=== PATIENT | female | born 1955 | race Caucasian/White ===

== ENCOUNTER → 2018-02-28 15:13 | Outpatient (CLI) | payer MEDICAID, SELFPAY ==
[2018-02-28 15:29] LABS: Basophils # 0.1 K/mm3 (0-0.2); Basophils % 0.6 % (0.1-2.0); Eosinophils % 0.4 % (0.1-12.0); Hematocrit 45.7 % (37.0-47.0); Hemoglobin 14.8 g/dL (12.2-16.2); Lymphocytes # 1.2 K/mm3 (0.7-4.5); Lymphocytes % 11.6 K/mm3 (10-50); Mean Corpuscular HGB Conc 32.4 g/dL (31.8-35.4); Mean Corpuscular Hemoglobin 32.8 pg (27.0-31.2); Mean Corpuscular Volume 101.1 fl (81-99); Monocytes # 0.5 K/mm3 (0.1-1.0); Neutrophils # 8.4 K/mm3 (1.8-7.8); Neutrophils % 82.3 % (37.0-80.0); Platelet Count 546 K/mm3 (142-424); Red Blood Count 4.52 M/mm3 (4.20-5.40); Red Cell Distribution Width 15.6 % (11.5-17.5); White Blood Count 10.2 K/mm3 (4.8-10.8)
[2018-02-28 18:02] LABS: Albumin Level 2.3 gm/dL (3.4-5.0); Albumin/Globulin Ratio 0.4 (1.1-1.8); Aspartate Amino Transferase 26 U/L (15-37); Blood Urea Nitrogen 62 mg/dL (7-18); Calcium 8.8 mg/dL (8.5-10.1); Globulin 5.8 gm/dl (1.3-3.2); Sodium 124 mmol/L (136-145); Total Protein,Serum 8.1 gm/dL (6.4-8.2)
[2018-02-28 18:25] LABS: Alanine Aminotransferase 32 U/L (12-78); Alkaline Phosphatase 231 U/L (46-116); Bilirubin,Total 0.3 mg/dL (0.2-1.0); Carbon Dioxide 19 mmol/L (21.0-32.0); Chloride 90 mmol/L (98-107); Creatinine,Serum 1.04 mg/dL (0.55-1.02); Estimated Glomerular Filt Rate 53 ml/min (>60); GFR (African American) 65 ML/MIN (>60); Glucose 232 mg/dL (74-106)
== END ==
PROVIDERS: Visit Provider Emergency Medicine
DX: R19.7 Diarrhea, unspecified (principal)
CPT/HCPCS: 80053; 85025

== ENCOUNTER → 2018-03-01 08:06 | Outpatient (CLI) | payer MEDICAID, SELFPAY ==
[2018-03-01 08:11] LABS: Adenovirus F 40/41, stool Not Detected (NotDetected); Astrovirus Not Detected (NotDetected); Campylobacter Not Detected (NotDetected); Clostridium Difficile A/B, PCR Not Detected (NotDetected); Cryptosporidium Not Detected (NotDetected); Cyclospora Cayetanesis Not Detected (NotDetected); Entamoeba histolytica Not Detected (NotDetected); Enteroaggregative E coli Not Detected (NotDetected); Enteropathogenic E coli Not Detected (NotDetected); Enterotoxigenic E coli Not Detected (NotDetected); Giardia lamblia Not Detected (NotDetected); Norovirus Not Detected (NotDetected); Plesimonas Shigalloides, PCR Not Detected (NotDetected); Rotavirus A Not Detected (NotDetected); Salmonella, PCR Not Detected (NotDetected); Sapovirus Not Detected (NotDetected); Shiga-like toxin E coli Not Detected (NotDetected); Shigella Enterovasive E coli Not Detected (NotDetected); Vibrio Cholerae Not Detected (NotDetected); Vibrio, PCR Not Detected (NotDetected); Yersinia Entercolitica, PCR Not Detected (NotDetected)
== END ==
PROVIDERS: Visit Provider Emergency Medicine
DX: R19.7 Diarrhea, unspecified (principal)
CPT/HCPCS: 87507

== ENCOUNTER 2018-03-05 16:18 | Inpatient (IN) ==
--- NOTE | 2018-03-05 16:43 | Emergency Department Note ---
ED Disposition <Ambrose Lizarraga - Last Filed: 03/05/18 18:11> Condition on Discharge: Serious - Critical Care Critical Care Time: No <Ousmane Angulo - Last Filed: 03/05/18 22:02> Clinical Impression: Diabetic foot infection, Gangrene, Renal insufficiency, Hyponatremia, Tobacco use Diabetes mellitus Qualifiers: Diabetes mellitus type: type 2 Diabetes mellitus terminal worker insulin use: unspecified terminal worker insulin use status Diabetes mellitus complication status: with unspecified complications Qualified Code(s): E11.8 - Type 2 diabetes mellitus with unspecified complications Disposition: Admitted As Inpatient Referrals: Ousmane Angulo MD [Primary Care Provider] - Attestation: On 03/05/18, the high probability of a clinically significant, sudden or life threatening deterioration of the following system(s) required my full and direct attention, intervention and personal management. The time I documented below is in addition to time spent performing reported procedures but includes the following listed in this critical care notation. Medical Decision Making - Medical Records Medical records reviewed: Yes: I reviewed the patient's medical records. - Theo Inquiry Pt receiving controlled substance: No Theo was queried for this patient: No - Lab Data Result diagrams: 03/05/18 17:06 03/05/18 17:06 - Physician Consults Physician Consulted: [facility] hospitalist Time: 18:06 Reason -: Admission, Pt condition, Transfer to another facilty Comment/Response: Will accept but on diversion right now. Place on list. <Ambrose Lizarraga - Last Filed: 03/05/18 18:11> - Lab Data Lab results reviewed: Yes: I reviewed the patient's lab results. Result diagrams: 03/05/18 17:06 03/05/18 17:06 - CT Data CT Scan: Other Time Received: 21:[address] Reviewed: Yes: I have viewed the radiologist's interpretation Preliminary Findings: Abnormal (see report ) <Ousmane Angulo - Last Filed: 03/05/18 22:02> Vital Signs: 03/05/18 16:19 03/05/18 18:14 03/05/18 19:28 Pulse Rate [Left Radial] 112 H 101 H 100 H Respiratory Rate 16 20 Blood Pressure [Right Arm] 113/73 119/72 106/75 L Blood Pressure Mean [Right Arm] 86 87 85 Blood Pressure Source [Right Arm] Automatic Cuff Automatic Cuff Blood Pressure Position [Right Arm] Sitting Sitting 02 Sat by Pulse Oximetry 98 99 97 Oxygen Delivery Method Room Air Room Air Room Air 03/05/18 20:00 03/05/18 20:25 Pulse Rate [Left Radial] 104 H 104 H Respiratory Rate 20 20 Blood Pressure [Right Arm] 110/57 L 108/66 L Blood Pressure Mean [Right Arm] 74 80 Blood Pressure Source [Right Arm] Blood Pressure Position [Right Arm] 02 Sat by Pulse Oximetry 97 99 Oxygen Delivery Method Room Air Room Air - Lab Data Lab Results 03/05/18 17:06: WBC 15.5 H, RBC 4.26, Hgb 13.4, Hct 42.8, MCV 100.6 H, MCH 31.6 H, MCHC 31.4 L, RDW 16.0, Plt Count 665 H, MPV 6.7 L, Neut % (Auto) 84.8 H, Lymph % (Auto) 10.2, [place] % (Auto) 3.3, Eos % (Auto) 1.4, Baso % (Auto) 0.3, Neut # (Auto) 13.1 H, Lymph # (Auto) 1.6, [place] # (Auto) 0.5, Eos # (Auto) 0.2, Baso # (Auto) 0.0, Total Counted 100, Neutrophils % (Manual) 85 H, Band Neutrophils % 3.0, Lymphocytes % (Manual) 10, Monocytes % (Manual) 1 L, Basophils % (Manual) 1.0, Platelet Estimate Moderate increase, RBC Morphology Normal 03/05/18 17:06: Sodium 122 L, Potassium 3.7, Chloride 91 L, Carbon Dioxide 17 L, Anion Gap 17.7 H, BUN 76 H, Creatinine 1.38 H, Estimated Creat Clear 47, Estimated GFR 38 L, Est GFR ( Amer) 47 L, Glucose 160 H, Calcium 8.0 L, Total Bilirubin 0.2, AST 23, ALT 35, Alkaline Phosphatase 219 H, Total Protein 7.7, Albumin 1.9 L, Globulin 5.8 H, Albumin/Globulin Ratio 0.3 L 03/05/18 17:06: Lactate 2.1 H 03/05/18 17:06: ESR > 120 H 03/05/18 17:06: C-Reactive Protein 16.4 H Orders (Tests/Meds): ED MEDICATIONS Generic Name Dose Route Start Last Admin Trade Name Freq PRN Reason Stop Dose Admin Sodium Chloride 1,000 mls @ 500 mls/hr 03/05/18 20:45 03/05/18 21:56 Sod Chlor 0.9% 1000ml Bag IV 04/04/18 20:44 500 mls/hr .Q2H DACIA Administration Ertapenem 1 gm/ Sodium 50 mls @ 100 mls/hr 03/05/18 21:45 03/05/18 21:56 Chloride IV 03/19/18 21:44 100 mls/hr Q24H DACIA Administration Protocol Discontinued Medications Generic Name Dose Route Start Last Admin Trade Name Jayq PRN Reason Stop Dose Admin Hydromorphone HCl 0.5 mg 03/05/18 17:35 03/05/18 17:41 Dilaudid 2mg/Ml Syringe IV 03/05/18 17:36 0.5 mg ONCE ONE Administration Hydromorphone HCl 0.5 mg 03/05/18 18:37 03/05/18 18:37 Dilaudid 2mg/Ml Syringe IV 03/05/18 18:38 0.5 mg ONCE ONE Administration Hydromorphone HCl 0.5 mg 03/05/18 21:45 03/05/18 21:56 Dilaudid 2mg/Ml Syringe IV 03/05/18 21:46 0.5 mg ONCE ONE Administration Vancomycin HCl 1,000 mg/ 250 mls @ 125 mls/hr 03/05/18 18:02 03/05/18 18:16 Sodium Chloride IV 03/05/18 20:01 Not Given ONCE ONE Vancomycin HCl 1,500 mg/ 250 mls @ 125 mls/hr 03/05/18 18:15 03/05/18 18:25 Sodium Chloride IV 03/05/18 20:14 125 mls/hr ONCE ONE Administration Ketorolac Tromethamine 30 mg 03/05/18 16:40 03/05/18 17:07 Toradol 30mg/Ml Vial IM 03/05/18 16:41 30 mg ONCE ONE Administration ORDERS Category Date Time Status CT foot RT wo con Stat Cat Scan 03/05/18 20:24 Taken Blood Culture Stat Micro 03/05/18 17:06 Received Wound Culture and Gram Stain Stat Micro 03/05/18 17:25 Received General Adult HPI - General Mode of Arrival: EMS Source of Information: Patient Limitations: Physical Limitations Description of Symptoms (Recalled from ER Triage Doc. by RN): to ed per squad sent for eval due to abnormal labs elevated K+ of 6.9 yesterday given kayexalate K+ redrawn today but was hemolyzed. pt c/o abd pain and leg pain hx of diarrhea 2 days ago - History of Present Illness Onset (ago): day(s) (1) Location: lower extremity Radiation: non-radiation Severity: moderate Quality: sharp Consistency: constant Relieving factors: none Exacerbating factors: none Associated symptoms: other (diarrhea) <Ambrose Lizarraga - Last Filed: 03/05/18 18:11> <Ousmane Angulo - Last Filed: 03/05/18 22:02> - General Chief complaint: PAIN Stated complaint: pain Time Seen by Provider: 03/05/18 17:00 - Related Data Home Medications Medication Instructions Recorded Confirmed acetaminophen 500 mg tablet 500 mg PO Q6H PRN tab 06/22/17 03/05/18 atorvastatin 20 mg tablet 20 mg PO DAILY tab 06/22/17 03/05/18 divalproex 125 mg tablet,delayed 125 mg PO QHS tab 06/22/17 03/05/18 release furosemide 20 mg tablet 20 mg PO DAILY tab 06/22/17 03/05/18 gabapentin 600 mg tablet 600 mg PO QID tab 06/22/17 03/05/18 hydrocodone 7.5 mg-acetaminophen 1 tab PO TID tab 06/22/17 03/05/18 325 mg tablet metformin 1,000 mg tablet 1,000 mg PO BID 06/22/17 03/05/18 multivitamin with minerals tablet 1 tab-cap PO DAILY tab 06/22/17 03/05/18 omeprazole 40 mg capsule,delayed 40 mg PO DAILY cap 06/22/17 03/05/18 release tizanidine 4 mg capsule 4 mg PO Q8H 06/22/17 03/05/18 Clindamycin HCl 300 mg PO QID 10/30/17 03/05/18 levoFLOXacin [Levaquin 500mg 500 mg PO DAILY 10/30/17 03/05/18 tab] Allergies Allergy/AdvReac Type Severity Reaction Status Date / Time codeine Allergy Mild Verified 10/16/17 18:30 [From TYLENOL-CODEINE #3] morphine [MORPHINE] Allergy Mild Verified 10/16/17 18:30 tramadol [From ULTRAM] Allergy Mild Verified 10/16/17 18:30 amoxicillin [AMOXICILLIN] Allergy Unknown Verified 10/16/17 18:30 [facility] History I have reviewed the patient's past medical history: Yes Medical History: Reports:: Diabetes Mellitus Type 2 Denies:: Diabetes Mellitus Type 1 - Social History Smoking Status: Current every day smoker Tobacco Type: cigarettes Alcohol Intake: never - Psychiatric History Expresses thoughts of harming self/others: None Suicide Plan Description: No Plan <Ambrose Lizarraga - Last Filed: 03/05/18 18:11> ROS Obtained: Yes All systems reviewed & no additional complaints - Constitutional Constitutional: Reports system reviewed and no additional complaints, except as docu - Cardiovascular Cardiovascular: Reports system reviewed and no additional complaints, except as docu - Respiratory Respiratory: Yes system reviewed and no additional complaints, except as docu - Gastrointestinal Gastrointestingal: Reports: abdominal pain, diarrhea - Genitourinary Female Genitourinary: Denies dysuria, Denies urinary hesitancy, Denies urinary urgency - Integumentary/Breasts Skin/Breast: Reports wounds, Reports other (drainage) - Neurologic Neurologic: Reports system reviewed and no additional complaints, except as docu, Denies dizziness, Denies focal weakness, Denies numbness <Ambrose Lizarraga - Last Filed: 03/05/18 18:11> - Eyes Eyes: Denies change in vision - ENT Ears, Nose, Mouth, and Throat: Denies sore throat - Musculoskeletal Musculoskeletal: Reports joint pain - Integumentary/Breasts Skin/Breast: Reports as per HPI <Ousmane Angulo - Last Filed: 03/05/18 22:02> Physical Exam - General General appearance: alert, in no apparent distress - Head Head exam: atraumatic, normocephalic, normal inspection - Neck Neck exam: Present: normal inspection, full ROM, trachea midline. Absent: meningismus, lymphadenopathy - Respiratory Respiratory exam: Present: normal lung sounds bilaterally. Absent: respiratory distress - Cardiovascular Cardiovascular exam: Present: regular rate, normal rhythm. Absent: JVD - Abdominal Exam Abdominal exam: Present: soft, normal bowel sounds. Absent: distention, tenderness, guarding - Extremities Exam Extremities exam: Present: tenderness (diffuse,moderate bilaterally.), pedal edema, other (drainage+) - Neurological Exam Neurological exam: Present: alert, oriented X3 - Psychiatric Psychiatric exam: Present: normal affect, normal mood <Ambrose Lizarraga - Last Filed: 03/05/18 18:11> - Eye Eye exam: Present: PERRL, EOMI - ENT ENT exam: Present: mucous membranes dry - Skin Skin exam: Present: other (changes rt greater than lt with foul smell and changes consistent with cellulitis ) <Ousmane Angulo - Last Filed: 03/05/18 22:02>
[2018-03-05 17:14] LABS: Basophils % 0.3 % (0.1-2.0); Eosinophils # 0.2 K/mm3 (0.0-0.4); Eosinophils % 1.4 % (0.1-12.0); Hematocrit 42.8 % (37.0-47.0); Hemoglobin 13.4 g/dL (12.2-16.2); Lymphocytes # 1.6 K/mm3 (0.7-4.5); Lymphocytes % 10.2 % (10-50); Mean Corpuscular HGB Conc 31.4 g/dL (31.8-35.4); Mean Corpuscular Hemoglobin 31.6 pg (27.0-31.2); Mean Corpuscular Volume 100.6 fl (81-99); Mean Platelet Volume 6.7 fl (7.4-10.4); Monocytes # 0.5 K/mm3 (0.1-1.0); Monocytes % 3.3 % (1.7-9.3); Neutrophils # 13.1 K/mm3 (1.8-7.8); Neutrophils % 84.8 % (37.0-80.0); Platelet Count 665 K/mm3 (142-424); Red Blood Count 4.26 M/mm3 (4.20-5.40); White Blood Count 15.5 K/mm3 (4.8-10.8)
[2018-03-05 17:38] LABS: Albumin Level 1.9 gm/dL (3.4-5.0); Albumin/Globulin Ratio 0.3 (1.1-1.8); Anion Gap 17.7 mEq/L (5-15); Bilirubin,Total 0.2 mg/dL (0.2-1.0); Globulin 5.8 gm/dl (1.3-3.2); Potassium 3.7 mmoL/L (3.5-5.1); Total Protein,Serum 7.7 gm/dL (6.4-8.2)
[2018-03-05 18:35] LABS: Lymphocytes % 10 % (10-50); Monocytes % 1 % (2-9); Neutrophils % 85 % (42-76); Total Cells Counted 100
[2018-03-05 18:37] LABS: RBC Morphology Normal
[2018-03-06 06:34] LABS: Anion Gap 15.5 mEq/L (5-15); Calcium 7.3 mg/dL (8.5-10.1); Potassium 3.5 mmoL/L (3.5-5.1)
[2018-03-06 06:36] LABS: INR 1.09 (0.9-1.1); Prothrombin Time 11.2 seconds (9.4-11.8)
[2018-03-06 06:43] LABS: Hematocrit 37.9 % (37.0-47.0); Mean Corpuscular HGB Conc 31.6 g/dL (31.8-35.4); Mean Corpuscular Hemoglobin 31.5 pg (27.0-31.2); Mean Corpuscular Volume 99.8 fl (81-99); White Blood Count 13.9 K/mm3 (4.8-10.8)
[2018-03-06 06:44] LABS: Basophils % 0.2 % (0.1-2.0); Eosinophils % 1.2 % (0.1-12.0); Lymphocytes # 0.8 K/mm3 (0.7-4.5); Lymphocytes % 6.1 % (10-50); Mean Platelet Volume 6.6 fl (7.4-10.4); Monocytes % 2.9 % (1.7-9.3); Neutrophils # 12.4 K/mm3 (1.8-7.8); Neutrophils % 89.6 % (37.0-80.0); Platelet Count 509 K/mm3 (142-424)
[2018-03-06 06:45] LABS: Eosinophils # 0.2 K/mm3 (0.0-0.4); Monocytes # 0.4 K/mm3 (0.1-1.0)
--- NOTE | 2018-03-06 07:51 | Pharmacy Consult Notes ---
[facility] Pharmacy VTE Monitoring - Patient Demographics Admission date: 03/05/18 Report Date: 03/06/18 Time: 07:50 Allergies/Adverse Reactions: Patient Allergies codeine [From TYLENOL-CODEINE #3] Allergy (Mild, Verified 10/16/17 18:30) morphine [MORPHINE] Allergy (Mild, Verified 10/16/17 18:30) tramadol [From ULTRAM] Allergy (Mild, Verified 10/16/17 18:30) amoxicillin [AMOXICILLIN] Allergy (Unknown, Verified 10/16/17 18:30) Height: 1.6 m Weight: 66.763 kg Patient Problems: Current Active Problems Diabetic foot infection (Acute) Gangrene (Acute) Renal insufficiency (Acute) Diabetes mellitus (Acute) Hyponatremia (Acute) Tobacco use (Acute) - VTE Risk Labs: VTE Related Lab Results Hgb 12.0 g/dL (12.2-16.2) L D 03/06/18 06:22 Hct 37.9 % (37.0-47.0) 03/06/18 06:22 Plt Count 509 K/mm3 (142-424) H 03/06/18 06:22 PT 11.2 seconds (9.4-11.8) 03/06/18 06:22 INR 1.09 (0.9-1.1) 03/06/18 06:22 BUN 59 mg/dL (7-18) H 03/06/18 06:22 Creatinine 0.80 mg/dL (0.55-1.02) D 03/06/18 06:22 Estimated Creat Clear 60 mL/min (0-300) 03/06/18 06:22 Was VTE Risk Assessment Performed: Yes VTE Score: 2 VTE Risk Level: Very Low Risk Clinical Trial Participant: No - Prophylaxis VTE Prophylaxis Ordered?: Yes Types of VTE Prophylaxis: Pharmacological Location of Applied Device: Not Applicable Pharmacologic Type: Enoxaparin
--- NOTE | 2018-03-06 08:23 | Pharmacy Consult Notes ---
- Pharmacy Consult Date: 03/06/18 Time: 08:20 Referring provider: DR. BEACH Reason for Consult:: VANCOMYCIN DOSING FOR DIABETIC FOOT INFECTION/POSSIBLE GANGRENE Allergies and ADEs:: Allergies Allergy/AdvReac Type Severity Reaction Status Date / Time codeine Allergy Mild Verified 10/16/17 18:30 [From TYLENOL-CODEINE #3] morphine [MORPHINE] Allergy Mild Verified 10/16/17 18:30 tramadol [From ULTRAM] Allergy Mild Verified 10/16/17 18:30 amoxicillin [AMOXICILLIN] Allergy Unknown Verified 10/16/17 18:30 Home Medications:: Home Medications Medication Instructions Recorded Confirmed Type acetaminophen 500 mg tablet 500 mg PO Q6HP PRN tab 06/22/17 03/06/18 History atorvastatin 20 mg tablet 20 mg PO HS tab 06/22/17 03/06/18 History divalproex 125 mg tablet,delayed 125 mg PO QHS tab 06/22/17 03/06/18 History release furosemide 20 mg tablet 20 mg PO DAILY tab 06/22/17 03/06/18 History gabapentin 600 mg tablet 600 mg PO QID tab 06/22/17 03/06/18 History hydrocodone 7.5 mg-acetaminophen 1 tab PO TID tab 06/22/17 03/06/18 History 325 mg tablet metformin 1,000 mg tablet 1,000 mg PO BID 06/22/17 03/06/18 History multivitamin with minerals tablet 1 tab-cap PO DAILY tab 06/22/17 03/06/18 History omeprazole 40 mg capsule,delayed 20 mg PO HS cap 06/22/17 03/06/18 History release tizanidine 4 mg capsule 4 mg PO TIDP PRN 06/22/17 03/06/18 History Fluconazole [Diflucan 100mg tablet] 100 mg PO DAILY 03/06/18 03/06/18 History Insulin Detemir [Levemir 100 14 unit SQ HS 03/06/18 03/06/18 History units/mL 10mL vial] Insulin Regular, Human [Humulin R 0 unit SQ BIDP PRN 03/06/18 03/06/18 History Insulin 100 Units/mL 10mL Vial] LORazepam [Ativan 0.5mg tablet] 0.5 tab PO BID 03/06/18 03/06/18 History Loratadine [Claritin 10mg Tablet] 10 mg PO DAILY 03/06/18 03/06/18 History Sertraline HCl [Zoloft 100mg 100 mg PO DAILY 03/06/18 03/06/18 History tablet] Height: 1.6 m Weight: 66.763 kg Laboratory Results:: Laboratory Results - last 24 hr 03/05/18 17:06: WBC 15.5 H, RBC 4.26, Hgb 13.4, Hct 42.8, MCV 100.6 H, MCH 31.6 H, MCHC 31.4 L, RDW 16.0, Plt Count 665 H, MPV 6.7 L, Neut % (Auto) 84.8 H, Lymph % (Auto) 10.2, [place] % (Auto) 3.3, Eos % (Auto) 1.4, Baso % (Auto) 0.3, Neut # (Auto) 13.1 H, Lymph # (Auto) 1.6, [place] # (Auto) 0.5, Eos # (Auto) 0.2, Baso # (Auto) 0.0, Total Counted 100, Neutrophils % (Manual) 85 H, Band Neutrophils % 3.0, Lymphocytes % (Manual) 10, Monocytes % (Manual) 1 L, Basophils % (Manual) 1.0, Platelet Estimate Moderate increase, RBC Morphology Normal 03/05/18 17:06: Sodium 122 L, Potassium 3.7, Chloride 91 L, Carbon Dioxide 17 L, Anion Gap 17.7 H, BUN 76 H, Creatinine 1.38 H, Estimated Creat Clear 47, Estimated GFR 38 L, Est GFR ( Amer) 47 L, Glucose 160 H, Calcium 8.0 L, Total Bilirubin 0.2, AST 23, ALT 35, Alkaline Phosphatase 219 H, Total Protein 7.7, Albumin 1.9 L, Globulin 5.8 H, Albumin/Globulin Ratio 0.3 L 03/05/18 17:06: Lactate 2.1 H 03/05/18 17:06: ESR > 120 H 03/05/18 17:06: C-Reactive Protein 16.4 H 03/06/18 06:10: POC Glucose 81 03/06/18 06:22: WBC 13.9 H, RBC 3.80 L, Hgb 12.0 L D, Hct 37.9, MCV 99.8 H, MCH 31.5 H, MCHC 31.6 L, RDW 16.0, Plt Count 509 H, MPV 6.6 L, Neut % (Auto) 89.6 H, Lymph % (Auto) 6.1 L, [place] % (Auto) 2.9, Eos % (Auto) 1.2, Baso % (Auto) 0.2, Neut # (Auto) 12.4 H, Lymph # (Auto) 0.8, [place] # (Auto) 0.4, Eos # (Auto) 0.2, Baso # (Auto) 0.0 03/06/18 06:22: PT 11.2, INR 1.09 03/06/18 06:22: Sodium 127 L, Potassium 3.5, Chloride 96 L, Carbon Dioxide 19 L, Anion Gap 15.5 H, BUN 59 H, Creatinine 0.80 D, Estimated Creat Clear 60, Estimated GFR 72, Est GFR ( Amer) 87 D, Glucose 84 D, Calcium 7.3 L Medical History: Reports:: Diabetes Mellitus Type 2, Hyperlipidemia, MRSA Denies:: Cancer, Diabetes Mellitus Type 1 Assessment and Plan - Assessment and plan all Dx Assessment and Plan for all problems:: BASED ON PATIENT'S FACTORS, RECOMMEND CONTINUE VANCOMYCIN 1250 MG Q24H STARTING AT 1300. PHARMACY WILL FOLLOW DAILY AND ADJUST APPROPRIATE. [address] [facility], [facility]
[2018-03-06 08:38] LABS: Eosinophils % 2 % (0-3); Lymphocytes % 3 % (10-50); Monocytes % 5 % (2-9); Neutrophils % 88 % (42-76); Total Cells Counted 100
[2018-03-06 08:39] LABS: RBC Morphology Normal
--- NOTE | 2018-03-06 10:36 | History & Physical Report ---
*Admission Date: 03/05/18 *Chief complaint: change in mental status *History of present illness: pt with ongoing decline at [facility] wirh diabetes and has infected feet rt > lt - pt with pain and dec po intake and was seen at [facility] and because of infection and failed op abx with dec po intake and act lev with low bp and abn labs was sent to ed to be eval - she was admitted for ivf and abx [facility] History I have reviewed the patient's past medical history: Yes Medical History: Reports:: Diabetes Mellitus Type 2, Hyperlipidemia, MRSA Denies:: Cancer, Diabetes Mellitus Type 1 Other Medical History: Reports: Arthritis Amputation: No - *Social History Educational Level: Attended High School Smoking Status: Current every day smoker Tobacco Type: cigarettes Alcohol Intake: never Occupational Status: disabled Housing: assisted - Psychiatric History Expresses thoughts of harming self/others: None Suicide Plan Description: No Plan *Family Hx:: Unable to obtain Review of Systems - Review of Systems Review of systems:: pertinent systems reviewed and negative unless documented below - Constitutional Reports malaise, Reports weakness - Eyes Denies change in vision - ENT Denies sore throat - *Cardiovascular Denies chest pain - *Respiratory Denies cough - *Gastrointestinal Denies abdominal pain - *Genitourinary Denies blood in urine - *Musculoskeletal Reports joint pain - Integumentary/Breasts Reports other (infection to rt foot with odor ) - *Neurologic Denies dizziness, Denies localized weakness, Denies numbness - Psychiatric Reports anxiety Meds Home Medications Medication Instructions Recorded Confirmed Type acetaminophen 500 mg tablet 500 mg PO Q6HP PRN tab 06/22/17 03/06/18 History atorvastatin 20 mg tablet 20 mg PO HS tab 06/22/17 03/06/18 History divalproex 125 mg tablet,delayed 125 mg PO HS tab 06/22/17 03/06/18 History release furosemide 20 mg tablet 20 mg PO DAILY tab 06/22/17 03/06/18 History gabapentin 600 mg tablet 600 mg PO QID tab 06/22/17 03/06/18 History hydrocodone 7.5 mg-acetaminophen 1 tab PO TID tab 06/22/17 03/06/18 History 325 mg tablet metformin 1,000 mg tablet 1,000 mg PO BID 06/22/17 03/06/18 History multivitamin with minerals tablet 1 tab-cap PO DAILY tab 06/22/17 03/06/18 History omeprazole 40 mg capsule,delayed 20 mg PO HS cap 06/22/17 03/06/18 History release tizanidine 4 mg capsule 4 mg PO TIDP PRN 06/22/17 03/06/18 History Fluconazole [Diflucan 100mg tablet] 100 mg PO DAILY 03/06/18 03/06/18 History Insulin Detemir [Levemir 100 14 unit SQ HS 03/06/18 03/06/18 History units/mL 10mL vial] Insulin Regular, Human [Humulin R 0 unit SQ BIDP PRN 03/06/18 03/06/18 History Insulin 100 Units/mL 10mL Vial] LORazepam [Ativan 0.5mg tablet] 0.25 mg PO BID 03/06/18 03/06/18 History Loperamide HCl [Imodium 2 mg 2 mg PO QIDP PRN 03/06/18 03/06/18 History capsule] Loratadine [Claritin 10mg Tablet] 10 mg PO DAILY 03/06/18 03/06/18 History Mag Carb/Aluminum Hydrox/Algin 30 ml PO QIDP PRN 03/06/18 03/06/18 History [Gaviscon Liquid] Phenol [Chloraseptic] 1 spray MM BIDP PRN 03/06/18 03/06/18 History Sertraline HCl [Zoloft 100mg 100 mg PO DAILY 03/06/18 03/06/18 History tablet] guaiFENesin [Robafen] 10 ml PO Q4HP PRN 03/06/18 03/06/18 History Allergies Allergy/AdvReac Type Severity Reaction Status Date / Time codeine Allergy Mild Verified 10/16/17 18:30 [From TYLENOL-CODEINE #3] morphine [MORPHINE] Allergy Mild Verified 10/16/17 18:30 tramadol [From ULTRAM] Allergy Mild Verified 10/16/17 18:30 amoxicillin [AMOXICILLIN] Allergy Unknown Verified 10/16/17 18:30 Exam Vital signs and Labs for Last 24 Hours: Temp Pulse Resp BP Pulse Ox 97.0 F L 100 H 17 122/63 97 03/06/18 07:19 03/06/18 07:19 03/06/18 07:19 03/06/18 07:19 03/06/18 07:19 Laboratory Results - last 24 hr 03/05/18 17:06: WBC 15.5 H, RBC 4.26, Hgb 13.4, Hct 42.8, MCV 100.6 H, MCH 31.6 H, MCHC 31.4 L, RDW 16.0, Plt Count 665 H, MPV 6.7 L, Neut % (Auto) 84.8 H, Lymph % (Auto) 10.2, [place] % (Auto) 3.3, Eos % (Auto) 1.4, Baso % (Auto) 0.3, Neut # (Auto) 13.1 H, Lymph # (Auto) 1.6, [place] # (Auto) 0.5, Eos # (Auto) 0.2, Baso # (Auto) 0.0, Total Counted 100, Neutrophils % (Manual) 85 H, Band Ghanshyam trophils % 3.0, Lymphocytes % (Manual) 10, Monocytes % (Manual) 1 L, Basophils % (Manual) 1.0, Platelet Estimate Moderate increase, RBC Morphology Normal 03/05/18 17:06: Sodium 122 L, Potassium 3.7, Chloride 91 L, Carbon Dioxide 17 L, Anion Gap 17.7 H, BUN 76 H, Creatinine 1.38 H, Estimated Creat Clear 47, Estimated GFR 38 L, Est GFR ( Amer) 47 L, Glucose 160 H, Calcium 8.0 L, Total Bilirubin 0.2, AST 23, ALT 35, Alkaline Phosphatase 219 H, Total Protein 7.7, Albumin 1.9 L, Globulin 5.8 H, Albumin/Globulin Ratio 0.3 L 03/05/18 17:06: Lactate 2.1 H 03/05/18 17:06: ESR > 120 H 03/05/18 17:06: C-Reactive Protein 16.4 H 03/06/18 06:10: POC Glucose 81 03/06/18 06:22: WBC 13.9 H, RBC 3.80 L, Hgb 12.0 L D, Hct 37.9, MCV 99.8 H, MCH 31.5 H, MCHC 31.6 L, RDW 16.0, Plt Count 509 H, MPV 6.6 L, Neut % (Auto) 89.6 H, Lymph % (Auto) 6.1 L, [place] % (Auto) 2.9, Eos % (Auto) 1.2, Baso % (Auto) 0.2, Neut # (Auto) 12.4 H, Lymph # (Auto) 0.8, [place] # (Auto) 0.4, Eos # (Auto) 0.2, Baso # (Auto) 0.0, Total Counted 100, Neutrophils % (Manual) 88 H, Band Neutrophils % 1.0, Lymphocytes % (Manual) 3 L, Atypical Lymphs % 1.0, Monocytes % (Manual) 5, Eosinophils % (Manual) 2, Platelet Estimate Slight increase, RBC Morphology Normal 03/06/18 06:22: PT 11.2, INR 1.09 03/06/18 06:22: Sodium 127 L, Potassium 3.5, Chloride 96 L, Carbon Dioxide 19 L, Anion Gap 15.5 H, BUN 59 H, Creatinine 0.80 D, Estimated Creat Clear 60, Estimated GFR 72, Est GFR ( Amer) 87 D, Glucose 84 D, Calcium 7.3 L I & O for Last 24 hours: Intake & Output 03/03/18 03/04/18 03/05/18 03/06/18 11:59 11:59 11:59 11:59 Intake Total 474 / 474 Output Total 300 / 300 Balance 174 / 174 Weight 147 lb 3 oz Microbiology Reports for the Last 24 Hours: Microbiology 03/05/18 17:25 Leg,Right - Right Side Gram Stain - Final 03/05/18 17:25 Leg,Right - Right Side Wound Culture - Preliminary - Constitutional no acute distress, chronically ill appearing, cooperative - *Routine HEENT Exam Head: Present: normocephalic Eye: Present: EOMI, PERRL ENT: Present: mucous membranes dry - *Routine Neck Exam Present: supple - *Routine Respiratory Exam Present: decreased breath sounds - *Routine Cardiovascular Exam Present: RRR, murmur - *Routine Abdominal Exam Present: soft - *Routine Extremities Exam Present: edema Comments: 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 with pain - *Routine Skin Exam Present: erythema, gangrene - *Routine Neurological Exam Present: alert, CN II-XII intact - Routine Psychiatric Exam Present: unable to assess Assessment and Plan (1) Diabetic foot infection Current visit: Yes Status: Acute Category: Medical Code(s): E11.628 - Type 2 diabetes mellitus with other skin complications; L08.9 - Local infection of the skin and subcutaneous tissue, unspecified (2) Gangrene Current visit: Yes Status: Acute Category: Medical Code(s): I96 - Gangrene, not elsewhere classified (3) Renal insufficiency Current visit: Yes Status: Acute Category: Medical Code(s): N28.9 - Disorder of kidney and ureter, unspecified (4) Diabetes mellitus Current visit: Yes Status: Acute Qualifiers: Diabetes mellitus type: type 2 Diabetes mellitus intermediate insulin use: unspecified 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
[2018-03-07 08:08] LABS: Basophils % 0.1 % (0.1-2.0); Eosinophils # 0.1 K/mm3 (0.0-0.4); Eosinophils % 0.4 % (0.1-12.0); Hematocrit 34.7 % (37.0-47.0); Hemoglobin 11.1 g/dL (12.2-16.2); Lymphocytes % 8.6 % (10-50); Mean Corpuscular Hemoglobin 32.1 pg (27.0-31.2); Mean Corpuscular Volume 100.3 fl (81-99); Mean Platelet Volume 7.2 fl (7.4-10.4); Monocytes # 0.5 K/mm3 (0.1-1.0); Monocytes % 4.4 % (1.7-9.3); Neutrophils # 10.6 K/mm3 (1.8-7.8); Neutrophils % 86.5 % (37.0-80.0); Platelet Count 431 K/mm3 (142-424); Red Blood Count 3.46 M/mm3 (4.20-5.40); Red Cell Distribution Width 16.2 % (11.5-17.5); White Blood Count 12.2 K/mm3 (4.8-10.8)
[2018-03-07 08:31] LABS: Anion Gap 13.5 mEq/L (5-15); Calcium 7.2 mg/dL (8.5-10.1); Potassium 3.5 mmoL/L (3.5-5.1)
--- NOTE | 2018-03-07 09:26 | Progress Note ---
Internal Medicine - PN: Subj *Date: 03/07/18 *Time: 09:24 Exam Vital signs and Labs for Last 24 Hours: Temp Pulse Resp BP Pulse Ox 98.8 F 105 H 20 118/73 92 L 03/07/18 08:00 03/07/18 08:00 03/07/18 08:00 03/07/18 08:00 03/07/18 08:00 Laboratory Results - last 24 hr 03/06/18 12:35: POC Glucose 130 H 03/06/18 16:39: POC Glucose 328 H* 03/06/18 20:44: POC Glucose 161 H 03/07/18 05:53: POC Glucose 134 H 03/07/18 07:55: WBC 12.2 H, RBC 3.46 L, Hgb 11.1 L, Hct 34.7 L, MCV 100.3 H, MCH 32.1 H, MCHC 32.0, RDW 16.2, Plt Count 431 H, MPV 7.2 L, Neut % (Auto) 86.5 H, Lymph % (Auto) 8.6 L, [place] % (Auto) 4.4, Eos % (Auto) 0.4, Baso % (Auto) 0.1, Neut # (Auto) 10.6 H, Lymph # (Auto) 1.0, [place] # (Auto) 0.5, Eos # (Auto) 0.1, Baso # (Auto) 0.0 03/07/18 07:55: Sodium 133 L, Potassium 3.5, Chloride 101, Carbon Dioxide 22, Anion Gap 13.5, BUN 24 H D, Creatinine 0.46 L D, Estimated Creat Clear 60, Estimated GFR 137, Est GFR ( Amer) 165 D, Glucose 175 H, Calcium 7.2 L I & O for Last 24 hours: Intake & Output 03/04/18 03/05/18 03/06/18 03/07/18 11:59 11:59 11:59 11:59 Intake Total 474 / 474 1339 / 1339 Output Total 300 / 300 Balance 174 / 174 1339 / 1339 Weight 147 lb 3 oz 147 lb 2.995 oz Microbiology Reports for the Last 24 Hours: Microbiology 03/05/18 17:25 Leg,Right - Right Side Gram Stain - Final 03/05/18 17:25 Leg,Right - Right Side Wound Culture - Preliminary Gram Negative Rods Gram Negative Rods#2 Gram Negative Rods#3 Gram Positive Cocci - *Routine HEENT Exam Head: Present: normocephalic Eye: Present: PERRL ENT: Present: mucous membranes moist - *Routine Neck Exam Present: supple. Absent: lymphadenopathy - *Routine Respiratory Exam Present: CTA bilaterally - *Routine Cardiovascular Exam Present: RRR - *Routine Abdominal Exam Present: soft, normoactive bowel sounds. Absent: tenderness - *Routine Extremities Exam Absent: cyanosis, clubbing, edema Comments: Dressings to bilateral lower extremities - *Routine Skin Exam Present: warm. Absent: rash Comments: Dressing to bilateral lower extremities with strong odor patient is refusing to let me remove the dressings. - *Routine Neurological Exam Present: alert, oriented X3 - Routine Psychiatric Exam Present: normal affect Assessment and Plan (1) Diabetic foot infection Current visit: Yes Status: Acute Category: Medical Code(s): E11.628 - Type 2 diabetes mellitus with other skin complications; L08.9 - Local infection of the skin and subcutaneous tissue, unspecified (2) Gangrene Current visit: Yes Status: Acute Category: Medical Code(s): I96 - Gangrene, not elsewhere classified (3) Renal insufficiency Current visit: Yes Status: Acute Category: Medical Code(s): N28.9 - Disorder of kidney and ureter, unspecified (4) Diabetes mellitus Current visit: Yes Status: Acute Qualifiers: Diabetes mellitus type: type 2 Diabetes mellitus detention insulin use: unspecified 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 Angulo all orders per Kev Consult Orth O Consult podiatry Continue IV antibiotics
[2018-03-07 10:50] LABS: Lymphocytes % 6 % (10-50); Monocytes % 5 % (2-9); Neutrophils % 88 % (42-76); Total Cells Counted 100
[2018-03-07 10:51] LABS: Macrocytosis 1+
--- NOTE | 2018-03-07 12:30 | Consult Report ---
*Admission Date: 03/05/18 *Chief complaint: bilateral foot pain *History of present illness: The patient is a 62-year-old female with a chief complaint of bilateral foot pain. She says that the pain has been present for "a long time," but cannot specify whether this is on the order of weeks or months. She was admitted on 03/05/2018 for suspected infected wounds on her feet, hyponatremia, leukocytosis. She has been on oral antibiotics since October 2017, consisting of clindamycin and Levaquin. She does not report any history of trauma to her feet and is not sure how the infection started. This is all that I am able to obtain from the patient; on questioning, the patient is resistant to answering. She says that she would like to refuse treatment and that she is "ready to ." She is a diabetic smoker and is on daily insulin. She is a [facility] resident and says that she is currently not able to walk at all, and cannot remember the last time she was able to stand. She was admitted through the ED, where ertapenem and vancomycin were started. A CT of the right foot 03/06/2018 was not suspi cious for osteomyelitis. Wound cultures were taken and are growing gram- negative rods and gram-positive cocci. Blood cultures are pending. She has had decreased urine output and decreased p.o. intake but vitals have been stable and she has been afebrile. Review of Systems - Review of Systems Review of systems:: unable to obtain (patient is not cooperative with questioning ) - *Musculoskeletal Reports other (bilateral foot pain) - *Neurologic Reports weakness, Denies dizziness, Denies localized weakness, Denies numbness [facility] History I have reviewed the patient's past medical history: Yes Medical History: Reports:: Diabetes Mellitus Type 2, Hyperlipidemia, MRSA Denies:: Cancer, Diabetes Mellitus Type 1 Other Medical History: Reports: Arthritis Amputation: No - *Social History Educational Level: Attended High School Smoking Status: Current every day smoker Tobacco Type: cigarettes Alcohol Intake: never Occupational Status: disabled Housing: [facility] - Psychiatric History Expresses thoughts of harming self/others: None Suicide Plan Description: No Plan *Family Hx:: Unable to obtain Meds Home Medications Medication Instructions Recorded Confirmed Type acetaminophen 500 mg tablet 500 mg PO Q6HP PRN tab 06/22/17 03/06/18 History atorvastatin 20 mg tablet 20 mg PO HS tab 06/22/17 03/06/18 History divalproex 125 mg tablet,delayed 125 mg PO HS tab 06/22/17 03/06/18 History release furosemide 20 mg tablet 20 mg PO DAILY tab 06/22/17 03/06/18 History gabapentin 600 mg tablet 600 mg PO QID tab 06/22/17 03/06/18 History hydrocodone 7.5 mg-acetaminophen 1 tab PO TID tab 06/22/17 03/06/18 History 325 mg tablet metformin 1,000 mg tablet 1,000 mg PO BID 06/22/17 03/06/18 History multivitamin with minerals tablet 1 tab-cap PO DAILY tab 06/22/17 03/06/18 History omeprazole 40 mg capsule,delayed 20 mg PO HS cap 06/22/17 03/06/18 History release tizanidine 4 mg capsule 4 mg PO TIDP PRN 06/22/17 03/06/18 History Fluconazole [Diflucan 100mg tablet] 100 mg PO DAILY 03/06/18 03/06/18 History Insulin Detemir [Levemir 100 14 unit SQ HS 03/06/18 03/06/18 History units/mL 10mL vial] Insulin Regular, Human [Humulin R 0 unit SQ BIDP PRN 03/06/18 03/06/18 History Insulin 100 Units/mL 10mL Vial] LORazepam [Ativan 0.5mg tablet] 0.25 mg PO BID 03/06/18 03/06/18 History Loperamide HCl [Imodium 2 mg 2 mg PO QIDP PRN 03/06/18 03/06/18 History capsule] Loratadine [Claritin 10mg Tablet] 10 mg PO DAILY 03/06/18 03/06/18 History Mag Carb/Aluminum Hydrox/Algin 30 ml PO QIDP PRN 03/06/18 03/06/18 History [Gaviscon Liquid] Phenol [Chloraseptic] 1 spray MM BIDP PRN 03/06/18 03/06/18 History Sertraline HCl [Zoloft 100mg 100 mg PO DAILY 03/06/18 03/06/18 History tablet] guaiFENesin [Robafen] 10 ml PO Q4HP PRN 03/06/18 03/06/18 History Allergies Allergy/AdvReac Type Severity Reaction Status Date / Time codeine Allergy Mild Verified 10/16/17 18:30 [From TYLENOL-CODEINE #3] morphine [MORPHINE] Allergy Mild Verified 10/16/17 18:30 tramadol [From ULTRAM] Allergy Mild Verified 10/16/17 18:30 amoxicillin [AMOXICILLIN] Allergy Unknown Verified 10/16/17 18:30 Exam Vital signs and Labs for Last 24 Hours: Temp Pulse Resp BP Pulse Ox 98.8 F 105 H 20 118/73 92 L 03/07/18 08:00 03/07/18 09:00 03/07/18 08:00 03/07/18 08:00 03/07/18 09:00 Laboratory Results - last 24 hr 03/06/18 12:35: POC Glucose 130 H 03/06/18 16:39: POC Glucose 328 H* 03/06/18 20:44: POC Glucose 161 H 03/07/18 05:53: POC Glucose 134 H 03/07/18 07:55: WBC 12.2 H, RBC 3.46 L, Hgb 11.1 L, Hct 34.7 L, MCV 100.3 H, MCH 32.1 H, MCHC 32.0, RDW 16.2, Plt Count 431 H, MPV 7.2 L, Neut % (Auto) 86.5 H, Lymph % (Auto) 8.6 L, [place] % (Auto) 4.4, Eos % (Auto) 0.4, Baso % (Auto) 0.1, Neut # (Auto) 10.6 H, Lymph # (Auto) 1.0, [place] # (Auto) 0.5, Eos # (Auto) 0.1, Baso # (Auto) 0.0, Total Counted 100, Neutrophils % (Manual) 88 H, Lymphocytes % (Manual) 6 L, Atypical Lymphs % 1.0, Monocytes % (Manual) 5, Platelet Estimate Normal, Macrocytosis 1+ 03/07/18 07:55: Sodium 133 L, Potassium 3.5, Chloride 101, Carbon Dioxide 22, Anion Gap 13.5, BUN 24 H D, Creatinine 0.46 L D, Estimated Creat Clear 60, Estimated GFR 137, Est GFR ( Amer) 165 D, Glucose 175 H, Calcium 7.2 L 03/07/18 11:20: POC Glucose 240 H I & O for Last 24 hours: Intake & Output 03/05/18 03/06/18 03/07/18 03/08/18 11:59 11:59 11:59 11:59 Intake Total 474 / 474 1339 / 1339 Output Total 300 / 300 200 / 200 Balance 174 / 174 1139 / 1139 Weight 147 lb 3 oz 147 lb 2.995 oz Microbiology Reports for the Last 24 Hours: Microbiology 03/05/18 17:25 Leg,Right - Right Side Gram Stain - Final 03/05/18 17:25 Leg,Right - Right Side Wound Culture - Preliminary Gram Negative Rods Gram Negative Rods#2 Gram Negative Rods#3 Gram Positive Cocci - Additional findings Additional findings: THE PATIENT REFUSED EXAMINATION AT THIS TIME. Results - Labs Result Diagrams: 03/07/18 07:55 03/07/18 07:55 Labs: Abnormal lab results 03/06/18 03/06/18 03/06/18 Range/Units 12:35 16:39 20:44 WBC (4.8-10.8) K/mm3 RBC (4.20-5.40) M/mm3 Hgb (12.2-16.2) g/dL Hct (37.0-47.0) % MCV (81-99) fl MCH (27.0-31.2) pg Plt Count (142-424) K/mm3 MPV (7.4-10.4) fl Neut % (Auto) (37.0-80.0) % Lymph % (Auto) (10-50) % Neut # (Auto) (1.8-7.8) K/mm3 Neutrophils % (Manual) (42-76) % Lymphocytes % (Manual) (10-50) % Sodium (136-145) mmol/L BUN (7-18) mg/dL Creatinine (0.55-1.02) mg/dL Glucose (74-106) mg/dL POC Glucose 130 H 328 H* 161 H (70-110) Calcium (8.5-10.1) mg/dL 03/07/18 03/07/18 03/07/18 Range/Units 05:53 07:55 07:55 WBC 12.2 H (4.8-10.8) K/mm3 RBC 3.46 L (4.20-5.40) M/mm3 Hgb 11.1 L (12.2-16.2) g/dL Hct 34.7 L (37.0-47.0) % MCV 100.3 H (81-99) fl MCH 32.1 H (27.0-31.2) pg Plt Count 431 H (142-424) K/mm3 MPV 7.2 L (7.4-10.4) fl Neut % (Auto) 86.5 H (37.0-80.0) % Lymph % (Auto) 8.6 L (10-50) % Neut # (Auto) 10.6 H (1.8-7.8) K/mm3 Neutrophils % (Manual) 88 H (42-76) % Lymphocytes % (Manual) 6 L (10-50) % Sodium 133 L (136-145) mmol/L BUN 24 H D (7-18) mg/dL Creatinine 0.46 L D (0.55-1.02) mg/dL Glucose 175 H (74-106) mg/dL POC Glucose 134 H (70-110) Calcium 7.2 L (8.5-10.1) mg/dL 03/07/18 Range/Units 11:20 WBC (4.8-10.8) K/mm3 RBC (4.20-5.40) M/mm3 Hgb (12.2-16.2) g/dL Hct (37.0-47.0) % MCV (81-99) fl MCH (27.0-31.2) pg Plt Count (142-424) K/mm3 MPV (7.4-10.4) fl Neut % (Auto) (37.0-80.0) % Lymph % (Auto) (10-50) % Neut # (Auto) (1.8-7.8) K/mm3 Neutrophils % (Manual) (42-76) % Lymphocytes % (Manual) (10-50) % Sodium (136-145) mmol/L BUN (7-18) mg/dL Creatinine (0.55-1.02) mg/dL Glucose (74-106) mg/dL POC Glucose 240 H (70-110) Calcium (8.5-10.1) mg/dL H & H 03/05/18 03/06/18 03/07/18 Range/Units 17:06 06:22 07:55 Hgb 13.4 12.0 L D 11.1 L (12.2-16.2) g/dL Hct 42.8 37.9 34.7 L (37.0-47.0) % Coagulation 03/06/18 Range/Units 06:22 INR 1.09 (0.9-1.1) All other labs normal. Assessment and Plan (1) Diabetic foot infection Current visit: Yes Status: Acute Category: Medical Code(s): E11.628 - Type 2 diabetes mellitus with other skin complications; L08.9 - Local infection of the skin and subcutaneous tissue, unspecified (2) Gangrene Current visit: Yes Status: Acute Category: Medical Code(s): I96 - Gangrene, not elsewhere classified (3) Renal insufficiency Current visit: Yes Status: Acute Category: Medical Code(s): N28.9 - Disorder of kidney and ureter, unspecified (4) Diabetes mellitus Current visit: Yes Status: Acute Qualifiers: Diabetes mellitus type: type 2 Diabetes mellitus intermediate insulin use: unspecified intermediate insulin use status Diabetes mellitus complication status: with unspecified complications Qualified Code(s): E11.8 - Type 2 diabe nedra mellitus with unspecified complications Category: Medical Code(s): E11.9 - Type 2 diabetes mellitus without complications (5) Hyponatremia Current visit: Yes Status: Acute Category: Medical Code(s): E87.1 - Hypo-osmolality and hyponatremia (6) Tobacco use Current visit: Yes Status: Acute Category: Medical Code(s): Z72.0 - Tobacco use - Assessment and plan all Dx Assessment and Plan for all problems:: The patient refused examination and was resistant to questioning. I was unable to assess her feet and thus cannot give a medical opinion on her condition. I did detect a foul odor from the region of her feet, and as documented by other providers, there is evidence of infection. From chart review, I can say that she presents a challenge to wound healing given her status as a diabetic, a smoker, and with an albumin of 1.9. ABIs were performed in November 2016, RLE 1.08, LLE 0.96. Since admission, her WBC has decreased from 15.5 to 12.2 and she has remained afebrile with a stable BP. I agree with the current management consisting of ertapenem/vancomycin, DVT prophy with lovenox, and pain control. I will see the patient again later today to attempt a dressing change/examination. Further recommendations are pending that exam, if the patient is compliant at that time.
--- NOTE | 2018-03-08 08:10 | Consult Report ---
Addendum entered and electronically signed by CARIDAD Trujillo 03/08/18 15:44: Left heart catheterization not performed due to patient's reluctance to sign consent. Patient did consent to the lower extremity runoff. Patient noted to have an irregular heart rate in the afternoon with telemetry showing potential paroxysmal atrial fibrillation versus sinus tachycardia with EKG appearing to show sinus tachycardia. Due to patient's complaint of shortness of breath and rales and rhonchi on exam she was given IV Lasix 40 mg along with bisoprolol 5 mg for the rapid heart rate Original Note: History of Present Illness Consult date: 03/08/18 Requesting physician: Ousmane Angulo Chief complaint: non healing diabetic foot ulcers, bilaterally Additional Medical History:: 1. Diabetes mellitus 2. Tobacco use 3. Noncompliance 4. Hyperlipidemia History of present illness: 62-year-old white female with history of diabetes tobacco use and noncompliance was admitted to the hospital for bilateral nonhealing diabetic ulcers with gradual decline in function. Patient is somewhat resistant to answering questions but denies chest pain. Please see Dr. Angulo note as well as orthopedic consult from Dr. Fischer for further information. Cardiology is been consulted for vascular evaluation prior to planned surgery for either bilateral BKA or AKA next week. [facility] History Medical History: Reports:: Diabetes Mellitus Type 2, Hyperlipidemia, MRSA Denies:: Cancer, Diabetes Mellitus Type 1 Other Medical History: Reports: Arthritis Amputation: No - *Social History Educational Level: Attended High School Smoking Status: Current every day smoker Tobacco Type: cigarettes Alcohol Intake: never Occupational Status: disabled Housing: group home - Psychiatric History Expresses thoughts of harming self/others: None Suicide Plan Description: No Plan *Family Hx:: Unable to obtain Meds Home Medications Medication Instructions Recorded Confirmed Type acetaminophen 500 mg tablet 500 mg PO Q6HP PRN tab 06/22/17 03/06/18 History atorvastatin 20 mg tablet 20 mg PO HS tab 06/22/17 03/06/18 History divalproex 125 mg tablet,delayed 125 mg PO HS tab 06/22/17 03/06/18 History release furosemide 20 mg tablet 20 mg PO DAILY tab 06/22/17 03/06/18 History gabapentin 600 mg tablet 600 mg PO QID tab 06/22/17 03/06/18 History hydrocodone 7.5 mg-acetaminophen 1 tab PO TID tab 06/22/17 03/06/18 History 325 mg tablet metformin 1,000 mg tablet 1,000 mg PO BID 06/22/17 03/06/18 History multivitamin with minerals tablet 1 tab-cap PO DAILY tab 06/22/17 03/06/18 History omeprazole 40 mg capsule,delayed 20 mg PO HS cap 06/22/17 03/06/18 History release tizanidine 4 mg capsule 4 mg PO TIDP PRN 06/22/17 03/06/18 History Fluconazole [Diflucan 100mg tablet] 100 mg PO DAILY 03/06/18 03/06/18 History Insulin Detemir [Levemir 100 14 unit SQ HS 03/06/18 03/06/18 History units/mL 10mL vial] Insulin Regular, Human [Humulin R 0 unit SQ BIDP PRN 03/06/18 03/06/18 History Insulin 100 Units/mL 10mL Vial] LORazepam [Ativan 0.5mg tablet] 0.25 mg PO BID 03/06/18 03/06/18 History Loperamide HCl [Imodium 2 mg 2 mg PO QIDP PRN 03/06/18 03/06/18 History capsule] Loratadine [Claritin 10mg Tablet] 10 mg PO DAILY 03/06/18 03/06/18 History Mag Carb/Aluminum Hydrox/Algin 30 ml PO QIDP PRN 03/06/18 03/06/18 History [Gaviscon Liquid] Phenol [Chloraseptic] 1 spray MM BIDP PRN 03/06/18 03/06/18 History Sertraline HCl [Zoloft 100mg 100 mg PO DAILY 03/06/18 03/06/18 History tablet] guaiFENesin [Robafen] 10 ml PO Q4HP PRN 03/06/18 03/06/18 History Allergies Allergy/AdvReac Type Severity Reaction Status Date / Time codeine Allergy Mild Verified 10/16/17 18:30 [From TYLENOL-CODEINE #3] morphine [MORPHINE] Allergy Mild Verified 10/16/17 18:30 tramadol [From ULTRAM] Allergy Mild Verified 10/16/17 18:30 amoxicillin [AMOXICILLIN] Allergy Unknown Verified 10/16/17 18:30 Review of Systems - *Cardiovascular Denies chest pain - *Respiratory Denies shortness of breath - *Gastrointestinal Denies abdominal pain - *Genitourinary Denies blood in urine - *Musculoskeletal Reports joint pain - *Neurologic Reports weakness, Denies dizziness, Denies localized weakness, Denies numbness Exam Vital signs and Labs for Last 24 Hours: Temp Pulse Resp BP Pulse Ox 97.8 F 102 H 18 105/57 L 90 L 03/08/18 04:00 03/08/18 04:00 03/08/18 04:00 03/08/18 04:00 03/08/18 04:00 Laboratory Results - last 24 hr 03/07/18 07:55: WBC 12.2 H, RBC 3.46 L, Hgb 11.1 L, Hct 34.7 L, MCV 100.3 H, MCH 32.1 H, MCHC 32.0, RDW 16.2, Plt Count 431 H, MPV 7.2 L, Neut % (Auto) 86.5 H, Lymph % (Auto) 8.6 L, [place] % (Auto) 4.4, Eos % (Auto) 0.4, Baso % (Auto) 0.1, Neut # (Auto) 10.6 H, Lymph # (Auto) 1.0, [place] # (Auto) 0.5, Eos # (Auto) 0.1, Baso # (Auto) 0.0, Total Counted 100, Neutrophils % (Manual) 88 H, Lymphocytes % (Manual) 6 L, Atypical Lymphs % 1.0, Monocytes % (Manual) 5, Platelet Estimate Normal, Macrocytosis 1+ 03/07/18 07:55: Sodium 133 L, Potassium 3.5, Chloride 101, Carbon Dioxide 22, Anion Gap 13.5, BUN 24 H D, Creatinine 0.46 L D, Estimated Creat Clear 60, Estimated GFR 137, Est GFR ( Amer) 165 D, Glucose 175 H, Calcium 7.2 L 03/07/18 11:20: POC Glucose 240 H 03/07/18 16:46: POC Glucose 209 H 03/07/18 21:01: POC Glucose 181 H I & O for Last 24 hours: Intake & Output 03/05/18 03/06/18 03/07/18 03/08/18 11:59 11:59 11:59 11:59 Intake Total 474 / 474 1339 / 1339 1280 / 1280 Output Total 300 / 300 200 / 200 200 / 200 Balance 174 / 174 1139 / 1139 1080 / 1080 Weight 147 lb 3 oz 147 lb 2.995 oz Microbiology Reports for the Last 24 Hours: Microbiology 03/05/18 17:06 Blood Blood Culture - Preliminary NO GROWTH AFTER 48 HOURS 03/05/18 17:06 Blood Blood Culture - Preliminary NO GROWTH AFTER 48 HOURS 03/05/18 17:25 Leg,Right - Right Side - Final Not Reportable 03/05/18 17:25 Leg,Right - Right Side - Final Not Reportable 03/05/18 17:25 Leg,Right - Right Side - Final Not Reportable 03/05/18 17:25 Leg,Right - Right Side - Final Not Reportable 03/05/18 17:25 Leg,Right - Right Side - Final Not Reportable 03/05/18 17:25 Leg,Right - Right Side Gram Stain - Final 03/05/18 17:25 Leg,Right - Right Side Wound Culture - Preliminary Gram Negative Rods Gram Negative Rods#2 Gram Negative Rods#3 Gram Positive Bacilli - *Routine Neck Exam Present: supple. Absent: JVD, carotid bruit - *Routine Respiratory Exam Present: diminished air movement. Absent: accessory muscle use, rales, rhonchi, wheezes - *Routine Cardiovascular Exam Present: RRR. Absent: murmur, gallop, rubs - *Routine Abdominal Exam Present: soft. Absent: tenderness, distended, guarding - *Routine Extremities Exam Present: edema, calf tenderness. Absent: cyanosis Comments: Both lower extremities are wrapped in gauze up to mid calf area. There is erythema and mild edema of the lower extremities. - *Routine Neurological Exam Present: alert, moving all extremities Assessment and Plan (1) Diabetic foot infection Current visit: Yes Status: Acute Category: Medical Code(s): E11.628 - Type 2 diabetes mellitus with other skin complications; L08.9 - Local infection of the skin and subcutaneous tissue, unspecified (2) Gangrene Current visit: Yes Status: Acute Category: Medical Code(s): I96 - Gangrene, not elsewhere classified (3) Renal insufficiency Current visit: Yes Status: Acute Category: Medical Code(s): N28.9 - Disorder of kidney and ureter, unspecified (4) Diabetes mellitus Current visit: Yes Status: Acute Qualifiers: Diabetes mellitus type: type 2 Diabetes mellitus long-term insulin use: 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 - Assessment and plan all Dx Assessment and Plan for all problems:: Plan to proceed with abdominal aortogram with bilateral lower extremity runoff to assess vascular status prior to planned bilateral BKA or AKA next week. We will proceed with echocardiogram to evaluate left ventricular size and functi on. Since patient is a long-term diabetic and smoker with history of medication noncompliance, would recommend proceeding with left heart catheterization to evaluate coronary artery status prior to planned extensive surgery. I believe this will be the most expedient way to evaluate her coronary status prior to surgery next week. She would not be cooperative to undergo Lexiscan Myoview.
--- NOTE | 2018-03-08 09:06 | Progress Note ---
Internal Medicine - PN: Subj *Date: 03/08/18 *Time: 09:04 Exam Vital signs and Labs for Last 24 Hours: Temp Pulse Resp BP Pulse Ox 97.8 F 93 H 19 101/55 L 89 L 03/08/18 08:00 03/08/18 08:00 03/08/18 08:00 03/08/18 08:00 03/08/18 08:00 Laboratory Results - last 24 hr 03/07/18 07:55: Total Counted 100, Neutrophils % (Manual) 88 H, Lymphocytes % (Manual) 6 L, Atypical Lymphs % 1.0, Monocytes % (Manual) 5, Platelet Estimate Normal, Macrocytosis 1+ 03/07/18 11:20: POC Glucose 240 H 03/07/18 16:46: POC Glucose 209 H 03/07/18 21:01: POC Glucose 181 H 03/08/18 06:01: POC Glucose 179 H I & O for Last 24 hours: Intake & Output 03/05/18 03/06/18 03/07/18 03/08/18 11:59 11:59 11:59 11:59 Intake Total 474 / 474 1339 / 1339 1280 / 1280 Output Total 300 / 300 200 / 200 400 / 400 Balance 174 / 174 1139 / 1139 880 / 880 Weight 147 lb 3 oz 147 lb 2.995 oz Microbiology Reports for the Last 24 Hours: Microbiology 03/05/18 17:25 Leg,Right - Right Side Gram Stain - Final 03/05/18 17:25 Leg,Right - Right Side Wound Culture - Final Providencia rettgeri Klebsiella oxytoca Enterobact cloac comp Gram Positive Bacilli 03/05/18 17:06 Blood Blood Culture - Preliminary NO GROWTH AFTER 48 HOURS 03/05/18 17:06 Blood Blood Culture - Preliminary NO GROWTH AFTER 48 HOURS 03/05/18 17:25 Leg,Right - Right Side - Final Not Reportable 03/05/18 17:25 Leg,Right - Right Side - Final Not Reportable 03/05/18 17:25 Leg,Right - Right Side - Final Not Reportable 03/05/18 17:25 Leg,Right - Right Side - Final Not Reportable 03/05/18 17:25 Leg,Right - Right Side - Final Not Reportable - *Routine HEENT Exam Head: Present: normocephalic Eye: Present: PERRL ENT: Present: mucous membranes moist - *Routine Neck Exam Present: supple. Absent: lymphadenopathy - *Routine Respiratory Exam Present: CTA bilaterally - *Routine Cardiovascular Exam Present: RRR - *Routine Abdominal Exam Present: soft, normoactive bowel sounds. Absent: tenderness - *Routine Extremities Exam Absent: cyanosis, clubbing, edema Comments: dressing to dayday lower ext with odor. - *Routine Skin Exam Present: warm. Absent: rash - *Routine Neurological Exam Present: alert, oriented X3 Assessment and Plan (1) Diabetic foot infection Current visit: Yes Status: Acute Category: Medical Code(s): E11.628 - Type 2 diabetes mellitus with other skin complications; L08.9 - Local infection of the skin and subcutaneous tissue, unspecified (2) Gangrene Current visit: Yes Status: Acute Category: Medical Code(s): I96 - Gangrene, not elsewhere classified (3) Renal insufficiency Current visit: Yes Status: Acute Category: Medical Code(s): N28.9 - Disorder of kidney and ureter, unspecified (4) Diabetes mellitus Current visit: Yes Status: Acute Qualifiers: Diabetes mellitus type: type 2 Diabetes mellitus halfway insulin use: unspecified halfway insulin 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 - Assessment and plan all Dx Assessment and Plan for all problems:: rounded with [facility] all orders per [facility] cardiac work up today and ortho surgery on sunday
--- NOTE | 2018-03-08 10:43 | Pharmacy Consult Notes ---
- Pharmacy Consult Date: 03/08/18 Time: 10:41 Referring provider: DR. BEACH Reason for Consult:: CHANGING VANCOMYCIN TO TOBRAMYCIN PER CULTURES Allergies and ADEs:: Allergies Allergy/AdvReac Type Severity Reaction Status Date / Time codeine Allergy Mild Verified 10/16/17 18:30 [From TYLENOL-CODEINE #3] morphine [MORPHINE] Allergy Mild Verified 10/16/17 18:30 tramadol [From ULTRAM] Allergy Mild Verified 10/16/17 18:30 amoxicillin [AMOXICILLIN] Allergy Unknown Verified 10/16/17 18:30 Home Medications:: Home Medications Medication Instructions Recorded Confirmed Type acetaminophen 500 mg tablet 500 mg PO Q6HP PRN tab 06/22/17 03/06/18 History atorvastatin 20 mg tablet 20 mg PO HS tab 06/22/17 03/06/18 History divalproex 125 mg tablet,delayed 125 mg PO HS tab 06/22/17 03/06/18 History release furosemide 20 mg tablet 20 mg PO DAILY tab 06/22/17 03/06/18 History gabapentin 600 mg tablet 600 mg PO QID tab 06/22/17 03/06/18 History hydrocodone 7.5 mg-acetaminophen 1 tab PO TID tab 06/22/17 03/06/18 History 325 mg tablet metformin 1,000 mg tablet 1,000 mg PO BID 06/22/17 03/06/18 History multivitamin with minerals tablet 1 tab-cap PO DAILY tab 06/22/17 03/06/18 History omeprazole 40 mg capsule,delayed 20 mg PO HS cap 06/22/17 03/06/18 History release tizanidine 4 mg capsule 4 mg PO TIDP PRN 06/22/17 03/06/18 History Fluconazole [Diflucan 100mg tablet] 100 mg PO DAILY 03/06/18 03/06/18 History Insulin Detemir [Levemir 100 14 unit SQ HS 03/06/18 03/06/18 History units/mL 10mL vial] Insulin Regular, Human [Humulin R 0 unit SQ BIDP PRN 03/06/18 03/06/18 History Insulin 100 Units/mL 10mL Vial] LORazepam [Ativan 0.5mg tablet] 0.25 mg PO BID 03/06/18 03/06/18 History Loperamide HCl [Imodium 2 mg 2 mg PO QIDP PRN 03/06/18 03/06/18 History capsule] Loratadine [Claritin 10mg Tablet] 10 mg PO DAILY 03/06/18 03/06/18 History Mag Carb/Aluminum Hydrox/Algin 30 ml PO QIDP PRN 03/06/18 03/06/18 History [Gaviscon Liquid] Phenol [Chloraseptic] 1 spray MM BIDP PRN 03/06/18 03/06/18 History Sertraline HCl [Zoloft 100mg 100 mg PO DAILY 03/06/18 03/06/18 History tablet] guaiFENesin [Robafen] 10 ml PO Q4HP PRN 03/06/18 03/06/18 History Height: 1.6 m Weight: 66.763 kg Laboratory Results:: Laboratory Results - last 24 hr 03/07/18 07:55: Total Counted 100, Neutrophils % (Manual) 88 H, Lymphocytes % (Manual) 6 L, Atypical Lymphs % 1.0, Monocytes % (Manual) 5, Platelet Estimate Normal, Macrocytosis 1+ 03/07/18 11:20: POC Glucose 240 H 03/07/18 16:46: POC Glucose 209 H 03/07/18 21:01: POC Glucose 181 H 03/08/18 06:01: POC Glucose 179 H Medical History: Reports:: Diabetes Mellitus Type 2, Hyperlipidemia, MRSA Denies:: Cancer, Diabetes Mellitus Type 1 Assessment and Plan (1) Diabetic foot infection Current visit: Yes Status: Acute Category: Medical Code(s): E11.628 - Type 2 diabetes mellitus with other skin complications; L08.9 - Local infection of the skin and subcutaneous tissue, unspecified (2) Gangrene Current visit: Yes Status: Acute Category: Medical Code(s): I96 - Gangrene, not elsewhere classified (3) Renal insufficiency Current visit: Yes Status: Acute Category: Medical Code(s): N28.9 - Disorder of kidney and ureter, unspecified (4) Diabetes mellitus Current visit: Yes Status: Acute Qualifiers: Diabetes mellitus type: type 2 Diabetes mellitus [place] insulin use: unspecified [facility] insulin 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 - Assessment and plan all Dx Assessment and Plan for all problems:: BASED ON PATIENT'S FACTORS, RECOMMEND STARTING WITH TOBRAMYCIN 300 MG Q24H AT THIS TIME. WILL OBTAIN 4 AND 12 HOUR POST INFUSION LEVELS TO DETERMINE ADEQUATE CLEARANCE. PHARMACY WILL FOLLOW DAILY AND AND ADJUST APPROPRIATE. [address] [facility], [facility]
--- NOTE | 2018-03-08 11:45 | Progress Note ---
Subjective Date: 03/08/18 Time: 11:00 Principal diagnosis: wet gangrene bilateral feet/lower leg Interval history: The patient was seen this morning in the holding area of the [facility], where she initially refused the angiogram procedure. I discussed the need for the pro cedure and she was then agreeable. She still complains of significant pain in bilateral feet. Denies chest pain or shortness of breath; receiving supplemental O2 via nasal cannula. PN: Obj Ex Vital signs: Temp Pulse Resp BP Pulse Ox 97.8 F 18 L 18 104/54 L 96 03/08/18 08:00 03/08/18 11:30 03/08/18 11:30 03/08/18 11:30 03/08/18 11:30 - Constitutional no acute distress, chronically ill appearing - Routine HEENT Exam Head: Present: normocephalic, atraumatic Eye: Present: EOMI - Routine Respiratory Exam Comments: no tachypnea or increased work of breathing - Routine Cardiovascular Exam Comments: No tachycardia, denies chest pain. - Routine Extremities Exam Comments: bilateral lower extremities gangrenous; multiple toes on both feet are black and necrotic multiple areas of full-thickness skin ulceration and purulent discharge with foul odor no bone exposed on visual examination, but unable to probe due to patient discomfort patient does not allow feet to be touched, difficult to get detailed exam skin on bilateral lower legs extending up to mid-calf is dry and scaly bilateral feet erythematous, which also extends proximally to mid-tibia unable to palpate pedal pulses, partially due to presence of eschar/infection, but also very painful for patient patient unable to move feet/ankles not cooperative with sensory exam Progress Note: A&P (1) Diabetic foot infection Status: Acute Current Visit: Yes (2) Gangrene Status: Acute Current Visit: Yes (3) Renal insufficiency Status: Acute Current Visit: Yes (4) Diabetes mellitus Status: Acute Current Visit: Yes (5) Hyponatremia Status: Acute Current Visit: Yes (6) Tobacco use Status: Acute Current Visit: Yes Assessment and Plan for All Diagnoses:: Recommend amputation, level to be determined based on results of angio, but likely bilateral BKA. Plan on surgery Sunday03/11/2018. Will medically optimize over the weekend and continue to discuss surgery with the patient, who has been intermittently disagreeable with receiving medical care. Continue IV antibiotics, hold lovenox after Sunday dose. Continue dressing changes daily to BLE.
[2018-03-08 22:32] LABS: Basophils % 0.1 % (0.1-2.0); Eosinophils % 0.3 % (0.1-12.0); Hematocrit 29.6 % (37.0-47.0); Hemoglobin 11.5 g/dL (12.2-16.2); Mean Corpuscular HGB Conc 38.9 g/dL (31.8-35.4); Mean Corpuscular Hemoglobin 38.8 pg (27.0-31.2); Mean Corpuscular Volume 99.7 fl (81-99); Mean Platelet Volume 6.5 fl (7.4-10.4); Monocytes # 0.6 K/mm3 (0.1-1.0); Monocytes % 4.8 % (1.7-9.3); Neutrophils # 11.3 K/mm3 (1.8-7.8); Neutrophils % 86.9 % (37.0-80.0); Platelet Count 488 K/mm3 (142-424); Red Blood Count 2.96 M/mm3 (4.20-5.40); Red Cell Distribution Width 16.4 % (11.5-17.5)
[2018-03-08 22:53] LABS: Anion Gap 11.6 mEq/L (5-15); Blood Urea Nitrogen 11 mg/dL (7-18); Calcium 7.1 mg/dL (8.5-10.1); Carbon Dioxide 30 mmol/L (21.0-32.0); Chloride 97 mmol/L (98-107); Creatine Kinase 361 U/L (26-192); Glucose 248 mg/dL (74-106); Sodium 137 mmol/L (136-145)
[2018-03-08 22:57] LABS: Potassium 1.6 mmoL/L (3.5-5.1)
[2018-03-08 23:27] LABS: Lymphocytes % 7 % (10-50); Monocytes % 6 % (2-9); Neutrophils % 86 % (42-76); Total Cells Counted 100
[2018-03-08 23:28] LABS: RBC Morphology Normal
[2018-03-09 09:07] LABS: Anion Gap 12.5 mEq/L (5-15); Potassium 2.5 mmoL/L (3.5-5.1)
[2018-03-09 09:08] LABS: Calcium 7.2 mg/dL (8.5-10.1)
[2018-03-09 09:21] LABS: Basophils % 0.2 % (0.1-2.0); Eosinophils # 0.1 K/mm3 (0.0-0.4); Eosinophils % 0.4 % (0.1-12.0); Hematocrit 36.8 % (37.0-47.0); Hemoglobin 11.6 g/dL (12.2-16.2); Lymphocytes # 1.4 K/mm3 (0.7-4.5); Lymphocytes % 10.4 % (10-50); Mean Corpuscular HGB Conc 31.4 g/dL (31.8-35.4); Mean Corpuscular Hemoglobin 31.8 pg (27.0-31.2); Mean Corpuscular Volume 101.2 fl (81-99); Mean Platelet Volume 6.7 fl (7.4-10.4); Monocytes # 0.6 K/mm3 (0.1-1.0); Monocytes % 4.8 % (1.7-9.3); Neutrophils # 11.2 K/mm3 (1.8-7.8); Neutrophils % 84.3 % (37.0-80.0); Platelet Count 589 K/mm3 (142-424); Red Blood Count 3.64 M/mm3 (4.20-5.40); Red Cell Distribution Width 16.6 % (11.5-17.5); White Blood Count 13.2 K/mm3 (4.8-10.8)
[2018-03-09 09:34] LABS: Albumin Level 1.3 gm/dL (3.4-5.0); Albumin/Globulin Ratio 0.3 (1.1-1.8); Anion Gap 11.5 mEq/L (5-15); Bilirubin,Total 0.2 mg/dL (0.2-1.0); Calcium 7.1 mg/dL (8.5-10.1); Globulin 4.1 gm/dl (1.3-3.2); Total Protein,Serum 5.4 gm/dL (6.4-8.2)
[2018-03-09 09:35] LABS: Potassium 2.5 mmoL/L (3.5-5.1)
--- NOTE | 2018-03-09 09:49 | Progress Note ---
Internal Medicine - PN: Subj *Date: 03/09/18 *Time: 09:46 Exam Vital signs and Labs for Last 24 Hours: Temp Pulse Resp BP Pulse Ox 97.5 F L 72 20 98/57 L 94 L 03/09/18 08:08 03/09/18 08:08 03/09/18 08:08 03/09/18 08:08 03/09/18 08:08 Laboratory Results - last 24 hr 03/08/18 21:33: POC Glucose 274 H 03/08/18 22:05: WBC 13.0 H, RBC 2.96 L, Hgb 11.5 L, Hct 29.6 L, MCV 99.7 H, MCH 38.8 H, MCHC 38.9 H, RDW 16.4, Plt Count 488 H, MPV 6.5 L, Neut % (Auto) 86.9 H, Lymph % (Auto) 8.0 L, [place] % (Auto) 4.8, Eos % (Auto) 0.3, Baso % (Auto) 0.1, Neut # (Auto) 11.3 H, Lymph # (Auto) 1.0, [place] # (Auto) 0.6, Eos # (Auto) 0.0, Baso # (Auto) 0.0, Total Counted 100, Neutrophils % (Manual) 86 H, Band Neutrophils % 1.0, Lymphocytes % (Manual) 7 L, Monocytes % (Manual) 6, Platelet Estimate Moderate increase, RBC Morphology Normal 03/08/18 22:05: Sodium 137, Potassium 1.6 L* D, Chloride 97 L, Carbon Dioxide 30 D, Anion Gap 11.6, BUN 11 D, Creatinine 0.56 D, Estimated Creat Clear 60, Estimated GFR 109, Est GFR ( Amer) 132, Glucose 248 H, Calcium 7.1 L, Total Creatine Kinase 361 H, CK-MB (CK-2) 6.6 H, CK-MB (CK-2) Rel Index 1.8, Troponin I < 0.02 03/09/18 07:02: POC Glucose 90 03/09/18 08:25: Random Tobramycin 2.0 03/09/18 08:25: Sodium 140, Potassium 2.5 L* D, Chloride 99, Carbon Dioxide 31, Anion Gap 12.5, BUN 12, Creatinine 0.53 L, Estimated Creat Clear 60, Estimated GFR 116, Est GFR ( Amer) 141, Glucose 127 H D, Calcium 7.2 L 03/09/18 08:25: WBC 13.2 H, RBC 3.64 L, Hgb 11.6 L, Hct 36.8 L, MCV 101.2 H, MCH 31.8 H, MCHC 31.4 L, RDW 16.6, Plt Count 589 H, MPV 6.7 L, Neut % (Auto) 84.3 H, Lymph % (Auto) 10.4, [place] % (Auto) 4.8, Eos % (Auto) 0.4, Baso % (Auto) 0.2, Neut # (Auto) 11.2 H, Lymph # (Auto) 1.4, [place] # (Auto) 0.6, Eos # (Auto) 0.1, Baso # (Auto) 0.0 03/09/18 08:25: Sodium 139, Potassium 2.5 L*, Chloride 99, Carbon Dioxide 31, Anion Gap 11.5, BUN 12, Creatinine 0.54 L, Estimated Creat Clear 60, Estimated GFR 114, Est GFR ( Amer) 138, Glucose 131 H, Calcium 7.1 L, Total Bilirubin 0.2, AST 56 H, ALT 63, Alkaline Phosphatase 145 H, Total Protein 5.4 L D, Albumin 1.3 L, Globulin 4.1 H, Albumin/Globulin Ratio 0.3 L I & O for Last 24 hours: Intake & Output 03/06/18 03/07/18 03/08/18 03/09/18 11:59 11:59 11:59 11:59 Intake Total 474 / 474 1339 / 1339 1280 / 1280 440 / 440 Output Total 300 / 300 200 / 200 400 / 400 800 / 800 Balance 174 / 174 1139 / 1139 880 / 880 -360 / -360 Weight 147 lb 3 oz 147 lb 2.995 oz 147 lb 2.995 oz Microbiology Reports for the Last 24 Hours: Microbiology 03/05/18 17:25 Leg,Right - Right Side Gram Stain - Final 03/05/18 17:25 Leg,Right - Right Side Wound Culture - Final Providencia rettgeri Klebsiella oxytoca Enterobact cloac comp Gram Positive Bacilli - *Routine HEENT Exam Head: Present: normocephalic Eye: Present: PERRL ENT: Present: mucous membranes moist - *Routine Neck Exam Present: supple. Absent: lymphadenopathy - *Routine Respiratory Exam Present: CTA bilaterally, diminished air movement - *Routine Cardiovascular Exam Present: RRR - *Routine Abdominal Exam Present: soft, normoactive bowel sounds. Absent: tenderness - *Routine Extremities Exam Present: edema. Absent: cyanosis, clubbing Comments: dressing to dayday lower ext with odor - *Routine Skin Exam Present: warm, wounds. Absent: rash Comments: dressing to dayday lower ext - *Routine Neurological Exam Present: alert, oriented X3 - Routine Psychiatric Exam Present: normal affect Assessment and Plan (1) Diabetic foot infection Current visit: Yes Status: Acute Category: Medical Code(s): E11.628 - Type 2 diabetes mellitus with other skin complications; L08.9 - Local infection of the skin and subcutaneous tissue, unspecified (2) Gangrene Current visit: Yes Status: Acute Category: Medical Code(s): I96 - Gangrene, not elsewhere classified (3) Renal insufficiency Current visit: Yes Status: Acute Category: Medical Code(s): N28.9 - Disorder of kidney and ureter, unspecified (4) Diabetes mellitus Current visit: Yes Status: Acute Qualifiers: Diabetes mellitus type: type 2 Diabetes mellitus halfway insulin use: unspecified halfway insulin 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 - Assessment and plan all Dx Assessment and Plan for all problems:: discussed with [facility] all orders per [facility] will adjust antibotics to cover pneumonia replace k+ recheck at 1300
--- NOTE | 2018-03-09 11:11 | Progress Note ---
Subjective Date: 03/09/18 Time: 11:00 Principal diagnosis: wet gangrene bilateral feet/lower leg Interval history: Patient is looking better this morning, awake and alert, answers questions appropriately. In the past 24 hours she has had several runs of tachycardia, reported as sinus via EKG, and intermittent chest discomfort. Pneumonia present on chest XR. Being treated with appropriate IV antibiotics. Potassium has been critically low but being replaced. Vitals remain stable, patient afebrile, maintaining adequate UOP. O2 sats hover in low 90s on 2L NC. Patient has no complaints this morning. PN: Obj Ex Vital signs: Temp Pulse Resp BP Pulse Ox 97.5 F L 72 20 98/57 L 94 L 03/09/18 08:08 03/09/18 08:08 03/09/18 08:08 03/09/18 08:08 03/09/18 08:08 - Constitutional no acute distress - Routine HEENT Exam Head: Present: normocephalic, atraumatic Eye: Present: EOMI ENT: Present: mucous membranes moist - Routine Respiratory Exam Comments: no increased work of breathing, no tachypnea, no accessory muscle use. patient coughs weakly, not producing mucous. no audible wheezes or rales. - Routine Cardiovascular Exam Comments: currently regular rate, no chest pain - Routine Extremities Exam Comments: bilateral feet/lower legs remain bandaged with foul odor, no strikethrough on bandages unable to wiggle toes or move ankle dressings being changed daily, no reported change since last change; with surgical plan in place and patient's discomfort, did not remove all dressings - Routine Neurological Exam Present: alert, oriented X3 Progress Note: A&P (1) Diabetic foot infection Status: Acute Current Visit: Yes (2) Gangrene Status: Acute Current Visit: Yes (3) Renal insufficiency Status: Acute Current Visit: Yes (4) Diabetes mellitus Status: Acute Current Visit: Yes (5) Hyponatremia Status: Acute Current Visit: Yes (6) Tobacco use Status: Acute Current Visit: Yes Assessment and Plan for All Diagnoses:: 62yo F with gangrene of bilateral feet/lower leg, h/o DM and heavy tobacco use -- angio normal, patient has good blood flow through BLE; this is a good prognostic factor for healing her surgical incisions -- multiple toes are black and necrotic, they are not salvageable. recommend at least amputation of these, but remainder of feet are also necrotic and infected, so a TMT amp is highly unlikely to heal. Continue to recommend bilateral BKA. -- surgery is planned for Sunday afternoon; felt it best to defer surgery until patient had angio and is more stable, with a few days of antibiotics for her pneumonia and normalization of her potassium. being closely monitored by Dr. Angulo's team; I am in agreement with medical management. Will have anesthesia see her prior to surgery to evaluate pulmonary status/anesthesia options. -- will place pre-op orders tomorrow and discuss the plan further with the patient
--- NOTE | 2018-03-09 12:59 | Progress Note ---
Internal Medicine - PN: Subj *Date: 03/09/18 *Time: 12:58 Exam Vital signs and Labs for Last 24 Hours: Temp Pulse Resp BP Pulse Ox 97.5 F L 72 20 98/57 L 94 L 03/09/18 08:08 03/09/18 08:08 03/09/18 08:08 03/09/18 08:08 03/09/18 08:08 Laboratory Results - last 24 hr 03/08/18 21:33: POC Glucose 274 H 03/08/18 22:05: WBC 13.0 H, RBC 2.96 L, Hgb 11.5 L, Hct 29.6 L, MCV 99.7 H, MCH 38.8 H, MCHC 38.9 H, RDW 16.4, Plt Count 488 H, MPV 6.5 L, Neut % (Auto) 86.9 H, Lymph % (Auto) 8.0 L, [place] % (Auto) 4.8, Eos % (Auto) 0.3, Baso % (Auto) 0.1, Neut # (Auto) 11.3 H, Lymph # (Auto) 1.0, [place] # (Auto) 0.6, Eos # (Auto) 0.0, Baso # (Auto) 0.0, Total Counted 100, Neutrophils % (Manual) 86 H, Band Neutrophils % 1.0, Lymphocytes % (Manual) 7 L, Monocytes % (Manual) 6, Platelet Estimate Moderate increase, RBC Morphology Normal 03/08/18 22:05: Sodium 137, Potassium 1.6 L* D, Chloride 97 L, Carbon Dioxide 30 D, Anion Gap 11.6, BUN 11 D, Creatinine 0.56 D, Estimated Creat Clear 60, Estimated GFR 109, Est GFR ( Amer) 132, Glucose 248 H, Calcium 7.1 L, Total Creatine Kinase 361 H, CK-MB (CK-2) 6.6 H, CK-MB (CK-2) Rel Index 1.8, Troponin I < 0.02 03/09/18 07:02: POC Glucose 90 03/09/18 08:25: Random Tobramycin 2.0 03/09/18 08:25: Sodium 140, Potassium 2.5 L* D, Chloride 99, Carbon Dioxide 31, Anion Gap 12.5, BUN 12, Creatinine 0.53 L, Estimated Creat Clear 60, Estimated GFR 116, Est GFR ( Amer) 141, Glucose 127 H D, Calcium 7.2 L 03/09/18 08:25: WBC 13.2 H, RBC 3.64 L, Hgb 11.6 L, Hct 36.8 L, MCV 101.2 H, MCH 31.8 H, MCHC 31.4 L, RDW 16.6, Plt Count 589 H, MPV 6.7 L, Neut % (Auto) 84.3 H, Lymph % (Auto) 10.4, [place] % (Auto) 4.8, Eos % (Auto) 0.4, Baso % (Auto) 0.2, Neut # (Auto) 11.2 H, Lymph # (Auto) 1.4, [place] # (Auto) 0.6, Eos # (Auto) 0.1, Baso # (Auto) 0.0 03/09/18 08:25: Sodium 139, Potassium 2.5 L*, Chloride 99, Carbon Dioxide 31, Anion Gap 11.5, BUN 12, Creatinine 0.54 L, Estimated Creat Clear 60, Estimated GFR 114, Est GFR ( Amer) 138, Glucose 131 H, Calcium 7.1 L, Total Bilirubin 0.2, AST 56 H, ALT 63, Alkaline Phosphatase 145 H, Total Protein 5.4 L D, Albumin 1.3 L, Globulin 4.1 H, Albumin/Globulin Ratio 0.3 L 03/09/18 11:54: POC Glucose 162 H I & O for Last 24 hours: Intake & Output 03/06/18 03/07/18 03/08/18 03/09/18 23:59 23:59 23:59 23:59 Intake Total 714 / 714 2379 / 2379 240 / 240 200 / 200 Output Total 300 / 300 400 / 400 1000 / 1000 Balance 414 / 414 1978 / 1978 -760 / -760 200 / 200 Weight 66.763 kg 66.763 kg Microbiology Reports for the Last 24 Hours: Microbiology 03/05/18 17:25 Leg,Right - Right Side Gram Stain - Final 03/05/18 17:25 Leg,Right - Right Side Wound Culture - Final Providencia rettgeri Klebsiella oxytoca Enterobact cloac comp Gram Positive Bacilli Assessment and Plan (1) Diabetic foot infection Current visit: Yes Status: Acute Category: Medical Code(s): E11.628 - Type 2 diabetes mellitus with other skin complications; L08.9 - Local infection of the skin and subcutaneous tissue, unspecified (2) Gangrene Current visit: Yes Status: Acute Category: Medical Code(s): I96 - Gangrene, not elsewhere classified (3) Renal insufficiency Current visit: Yes Status: Acute Category: Medical Code(s): N28.9 - Disorder of kidney and ureter, unspecified (4) Diabetes mellitus Current visit: Yes Status: Acute Qualifiers: Diabetes mellitus type: type 2 Diabetes mellitus nursing home insulin use: unspecified nursing home insulin use status Diabetes mellitus complication status: with unspecified complications Qualified Code(s): E11.8 - Type 2 diabetes mellitus with unspecified complications Category: Medical Code(s): E11.9 - Type 2 diabetes mellitus without complications (5) Hyponatremia Current visit: Yes Status: Acute Category: Medical Code(s): E87.1 - Hypo- osmolality and hyponatremia (6) Tobacco use Current visit: Yes Status: Acute Category: Medical Code(s): Z72.0 - T obacco use The patient's infection will respond to the chosen ABx?: Yes Is the patient receiving the right drug, dose, and route?: Yes Could a more targeted ABx be ordered?: No
[2018-03-10 08:40] LABS: Basophils % 0.1 % (0.1-2.0); Eosinophils % 0.3 % (0.1-12.0); Hematocrit 32.7 % (37.0-47.0); Hemoglobin 10.8 g/dL (12.2-16.2); Lymphocytes # 1.1 K/mm3 (0.7-4.5); Lymphocytes % 10.1 % (10-50); Mean Corpuscular Hemoglobin 34.1 pg (27.0-31.2); Mean Corpuscular Volume 103.3 fl (81-99); Mean Platelet Volume 6.7 fl (7.4-10.4); Monocytes # 0.5 K/mm3 (0.1-1.0); Monocytes % 4.3 % (1.7-9.3); Neutrophils # 8.9 K/mm3 (1.8-7.8); Neutrophils % 85.2 % (37.0-80.0); Platelet Count 419 K/mm3 (142-424); Red Blood Count 3.16 M/mm3 (4.20-5.40); Red Cell Distribution Width 16.7 % (11.5-17.5); White Blood Count 10.5 K/mm3 (4.8-10.8)
[2018-03-10 08:41] LABS: Anion Gap 9.3 mEq/L (5-15); Calcium 7.4 mg/dL (8.5-10.1); Potassium 3.3 mmoL/L (3.5-5.1)
[2018-03-10 09:20] LABS: Eosinophils % 1 % (0-3); Lymphocytes % 12 % (10-50); Macrocytosis 1+; Monocytes % 8 % (2-9); Neutrophils % 76 % (42-76); Total Cells Counted 100
--- NOTE | 2018-03-10 10:31 | Progress Note ---
Internal Medicine - PN: Subj *Date: 03/10/18 *Time: 09:15 Interval history: pt states feeling better today. tabby was placed back in due to needing lasix las pm Exam Vital signs and Labs for Last 24 Hours: Temp Pulse Resp BP Pulse Ox 97.8 F 74 20 80/44 L 92 L 03/10/18 08:00 03/10/18 08:00 03/10/18 08:00 03/10/18 08:00 03/10/18 08:00 Laboratory Results - last 24 hr 03/09/18 11:54: POC Glucose 162 H 03/09/18 13:15: Potassium 2.7 L* 03/09/18 17:30: Random Tobramycin 8.5 03/09/18 22:15: POC Glucose 222 H 03/10/18 05:41: POC Glucose 149 H 03/10/18 08:18: Random Tobramycin 1.8 03/10/18 08:18: WBC 10.5, RBC 3.16 L, Hgb 10.8 L, Hct 32.7 L, MCV 103.3 H, MCH 34.1 H, MCHC 33.0, RDW 16.7, Plt Count 419 D, MPV 6.7 L, Neut % (Auto) 85.2 H, Lymph % (Auto) 10.1, [place] % (Auto) 4.3, Eos % (Auto) 0.3, Baso % (Auto) 0.1, Neut # (Auto) 8.9 H, Lymph # (Auto) 1.1, [place] # (Auto) 0.5, Eos # (Auto) 0.0, Baso # (Auto) 0.0, Total Counted 100, Neutrophils % (Manual) 76, Band Neutrophils % 3.0, Lymphocytes % (Manual) 12, Monocytes % (Manual) 8, Eosinophils % (Manual) 1, Platelet Estimate Normal, Macrocytosis 1+ 03/10/18 08:18: Sodium 137, Potassium 3.3 L D, Chloride 100, Carbon Dioxide 31, Anion Gap 9.3, BUN 13, Creatinine 0.62, Estimated Creat Clear 60, Estimated GFR 97, Est GFR ( Amer) 117, Glucose 212 H D, Calcium 7.4 L I & O for Last 24 hours: Intake & Output 03/07/18 03/08/18 03/09/18 11/11/18 11:59 11:59 11:59 11:59 Intake Total 1339 / 1339 1280 / 1280 440 / 440 2276 / 2276 Output Total 200 / 200 400 / 400 800 / 800 Balance 1139 / 1139 880 / 880 -360 / -360 2276 / 2276 Weight 147 lb 2.995 oz 147 lb 2.995 oz - *Routine HEENT Exam Head: Present: normocephalic Eye: Present: PERRL ENT: Present: mucous membranes moist - *Routine Neck Exam Present: supple. Absent: lymphadenopathy - *Routine Respiratory Exam Present: CTA bilaterally, diminished air movement - *Routine Cardiovascular Exam Present: RRR - *Routine Abdominal Exam Present: soft, normoactive bowel sounds. Absent: tenderness - *Routine Extremities Exam Absent: cyanosis, clubbing, edema Comments: dressing to dayday lower ext - *Routine Skin Exam Present: warm, wounds. Absent: rash Comments: dressings to dayday lower ext - *Routine Neurological Exam Present: alert, oriented X3 - Routine Psychiatric Exam Present: normal affect Assessment and Plan (1) Diabetic foot infection Current visit: Yes Status: Acute Category: Medical Code(s): E11.628 - Type 2 diabetes mellitus with other skin complications; L08.9 - Local infection of the skin and subcutaneous tissue, unspecified (2) Gangrene Current visit: Yes Status: Acute Category: Medical Code(s): I96 - Gangrene, not elsewhere classified (3) Renal insufficiency Current visit: Yes Status: Acute Category: Medical Code(s): N28.9 - Disorder of kidney and ureter, unspecified (4) Diabetes mellitus Current visit: Yes Status: Acute Qualifiers: Diabetes mellitus type: type 2 Diabetes mellitus correction insulin use: unspecified correction insulin 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 - Assessment and plan all Dx Assessment and Plan for all problems:: Dr Angulo to round later today all orders per destiny discussed with pt about surgery in am.
--- NOTE | 2018-03-10 10:53 | Pharmacy Consult Notes ---
- Pharmacy Consult Date: 03/10/18 Time: 10:50 Referring provider: DR. BEACH Reason for Consult:: TOBRAMYCIN LEVELS AND DOSE CHANGE Allergies and ADEs:: Allergies Allergy/AdvReac Type Severity Reaction Status Date / Time codeine Allergy Mild Verified 10/16/17 18:30 [From TYLENOL-CODEINE #3] morphine [MORPHINE] Allergy Mild Verified 10/16/17 18:30 tramadol [From ULTRAM] Allergy Mild Verified 10/16/17 18:30 amoxicillin [AMOXICILLIN] Allergy Unknown Verified 10/16/17 18:30 Home Medications:: Home Medications Medication Instructions Recorded Confirmed Type acetaminophen 500 mg tablet 500 mg PO Q6HP PRN tab 06/22/17 03/06/18 History atorvastatin 20 mg tablet 20 mg PO HS tab 06/22/17 03/06/18 History divalproex 125 mg tablet,delayed 125 mg PO HS tab 06/22/17 03/06/18 History release furosemide 20 mg tablet 20 mg PO DAILY tab 06/22/17 03/06/18 History gabapentin 600 mg tablet 600 mg PO QID tab 06/22/17 03/06/18 History hydrocodone 7.5 mg-acetaminophen 1 tab PO TID tab 06/22/17 03/06/18 History 325 mg tablet metformin 1,000 mg tablet 1,000 mg PO BID 06/22/17 03/06/18 History multivitamin with minerals tablet 1 tab-cap PO DAILY tab 06/22/17 03/06/18 History omeprazole 40 mg capsule,delayed 20 mg PO HS cap 06/22/17 03/06/18 History release tizanidine 4 mg capsule 4 mg PO TIDP PRN 06/22/17 03/06/18 History Fluconazole [Diflucan 100mg tablet] 100 mg PO DAILY 03/06/18 03/06/18 History Insulin Detemir [Levemir 100 14 unit SQ HS 03/06/18 03/06/18 History units/mL 10mL vial] Insulin Regular, Human [Humulin R 0 unit SQ BIDP PRN 03/06/18 03/06/18 History Insulin 100 Units/mL 10mL Vial] LORazepam [Ativan 0.5mg tablet] 0.25 mg PO BID 03/06/18 03/06/18 History Loperamide HCl [Imodium 2 mg 2 mg PO QIDP PRN 03/06/18 03/06/18 History capsule] Loratadine [Claritin 10mg Tablet] 10 mg PO DAILY 03/06/18 03/06/18 History Mag Carb/Aluminum Hydrox/Algin 30 ml PO QIDP PRN 03/06/18 03/06/18 History [Gaviscon Liquid] Phenol [Chloraseptic] 1 spray MM BIDP PRN 03/06/18 03/06/18 History Sertraline HCl [Zoloft 100mg 100 mg PO DAILY 03/06/18 03/06/18 History tablet] guaiFENesin [Robafen] 10 ml PO Q4HP PRN 03/06/18 03/06/18 History Height: 1.6 m Weight: 66.763 kg Laboratory Results:: Laboratory Results - last 24 hr 03/09/18 11:54: POC Glucose 162 H 03/09/18 13:15: Potassium 2.7 L* 03/09/18 17:30: Random Tobramycin 8.5 03/09/18 22:15: POC Glucose 222 H 03/10/18 05:41: POC Glucose 149 H 03/10/18 08:18: Random Tobramycin 1.8 03/10/18 08:18: WBC 10.5, RBC 3.16 L, Hgb 10.8 L, Hct 32.7 L, MCV 103.3 H, MCH 34.1 H, MCHC 33.0, RDW 16.7, Plt Count 419 D, MPV 6.7 L, Neut % (Auto) 85.2 H, Lymph % (Auto) 10.1, [place] % (Auto) 4.3, Eos % (Auto) 0.3, Baso % (Auto) 0.1, Neut # (Auto) 8.9 H, Lymph # (Auto) 1.1, [place] # (Auto) 0.5, Eos # (Auto) 0.0, [place] # (Auto) 0.0, Total Counted 100, Neutrophils % (Manual) 76, Band Neutrophils % 3.0, Lymphocytes % (Manual) 12, Monocytes % (Manual) 8, Eosinophils % (Manual) 1, Platelet Estimate Normal, Macrocytosis 1+ 03/10/18 08:18: Sodium 137, Potassium 3.3 L D, Chloride 100, Carbon Dioxide 31, Anion Gap 9.3, BUN 13, Creatinine 0.62, Estimated Creat Clear 60, Estimated GFR 97, Est GFR ( Amer) 117, Glucose 212 H D, Calcium 7.4 L Medical History: Reports:: Diabetes Mellitus Type 2, Hyperlipidemia, MRSA Denies:: Cancer, Diabetes Mellitus Type 1 Assessment and Plan (1) Diabetic foot infection Current visit: Yes Status: Acute Category: Medical Code(s): E11.628 - Type 2 diabetes mellitus with other skin complications; L08.9 - Local infection of the skin and subcutaneous tissue, unspecified (2) Gangrene Current visit: Yes Status: Acute Category: Medical Code(s): I96 - Gangrene, not elsewhere classified (3) Renal insufficiency Current visit: Yes Status: Acute Category: Medical Code(s): N28.9 - Disorder of kidney and ureter, unspecified (4) Diabetes mellitus Current visit: Yes Status: Acute Qualifiers: Diabetes mellitus type: type 2 Diabetes mellitus intermediate manager insulin use: unspecified intermediate manager insulin 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 - Assessment and plan all Dx Assessment and Plan for all problems:: BASED ON TOBRAMCYIN CALCULATED CMAX OF 12.36 MCG/ML AND CMIN OF 1.05 MCG/ML, RECOMMEND CHANGING CURRENT DOSE OF TOBRAMYCIN 320 MG Q24H TO TOBRAMYCIN 400 MG Q36H TO ALLOW FOR BETTER CLEARANCE. WILL OBTAIN TROUGH LEVEL PRIOR TO NEXT SCHEDULED DOSE. PHARMACY WILL FOLLOW DAILY AND ADJUST APPROPRIATE. [address] [facility], JULIAD
--- NOTE | 2018-03-10 11:27 | Progress Note ---
Subjective Date: 03/10/18 Time: 11:00 Principal diagnosis: wet gangrene bilateral feet/lower leg Interval history: The patient is having dressings changed when I arrived this morning, tolerating well. No acute events reported overnight. BP trending slightly lower today, vikram into SBP 80's. Patient denies chest pain or shortness of breath, remains afebrile. She believes she is breathing slightly easier today. PN: Obj Ex Vital signs: Temp Pulse Resp BP Pulse Ox 97.8 F 74 20 80/44 L 92 L 03/10/18 08:00 03/10/18 08:00 03/10/18 08:00 03/10/18 08:00 03/10/18 08:00 Narrative: bilateral lower extremities gangrenous; multiple toes on both feet are black and necrotic multiple areas of full-thickness skin ulceration and purulent discharge with foul odor no bone exposed on visual examination, but unable to probe due to patient discomfort skin on bilateral lower legs extending up to mid-calf is dry and scaly bilateral feet erythematous, which also extends proximally to mid-tibia unable to palpate pedal pulses, partially due to presence of eschar/infection, but also very painful for patient patient unable to move feet/ankles insensate throughout feet, to mid-tibia; difficult to discern if from presence of pain or truly insensate; patient poor historian, may be chronic Progress Note: A&P (1) Diabetic foot infection Status: Acute Current Visit: Yes (2) Gangrene Status: Acute Current Visit: Yes (3) Renal insufficiency Status: Acute Current Visit: Yes (4) Diabetes mellitus Status: Acute Current Visit: Yes (5) Hyponatremia Status: Acute Current Visit: Yes (6) Tobacco use Status: Acute Current Visit: Yes Assessment and Plan for All Diagnoses:: 62yo F with diabetic foot infection, BLE gangrenous with multiple necrotic toes and purulent ulcers extending to mid-tibia -- plan is for OR tomorrow, will perform surgical debridement and once patient is anesthetized, be able to perform more thorough exam. It is unlikely that debridement will be sufficient to treat infection, anticipate bilateral BKA -- will place pre-op orders today, for am lab testing tomorrow and consent -- risks of surgery were discussed with the patient today, including bleeding necessitating post-op transfusion, persistence of infection and/or wound healing complications resulting in revision amputation to AKA, and medical risks of anes thesia/surgery. The patient is agreeable to surgery and vocalized understanding of the risks. -- the patient denies the presence of any family or friends that she would like me to call and discuss surgery; remains DNR
[2018-03-11 07:03] LABS: Anion Gap 9.7 mEq/L (5-15); Calcium 7.2 mg/dL (8.5-10.1)
[2018-03-11 07:08] LABS: Basophils % 0.2 % (0.1-2.0); Eosinophils # 0.1 K/mm3 (0.0-0.4); Hematocrit 33.6 % (37.0-47.0); Hemoglobin 10.6 g/dL (12.2-16.2); Lymphocytes # 1.3 K/mm3 (0.7-4.5); Mean Corpuscular HGB Conc 31.6 g/dL (31.8-35.4); Mean Corpuscular Volume 101.3 fl (81-99); Mean Platelet Volume 6.8 fl (7.4-10.4); Monocytes # 0.7 K/mm3 (0.1-1.0); Neutrophils # 7.3 K/mm3 (1.8-7.8); Neutrophils % 77.7 % (37.0-80.0); Platelet Count 456 K/mm3 (142-424); Red Blood Count 3.31 M/mm3 (4.20-5.40); Red Cell Distribution Width 16.7 % (11.5-17.5); White Blood Count 9.4 K/mm3 (4.8-10.8)
[2018-03-11 07:09] LABS: Potassium 2.7 mmoL/L (3.5-5.1)
[2018-03-11 07:13] LABS: INR 1.18 (0.9-1.1); Prothrombin Time 12.1 seconds (9.4-11.8)
[2018-03-11 07:30] LABS: Activated Partial Thrombo Time 37.6 seconds (23.6-34.0)
--- NOTE | 2018-03-11 08:11 | Progress Note ---
Subjective Date: 03/11/18 Time: 08:09 Principal diagnosis: wet gangrene bilateral feet/lower leg Interval history: 62-year-old white female in bed. Initially sleeping but awakens easily. Denies any chest pains. Plans are for surgery later today. Nurse relates low po tassium at 2.7. Will replace with IV runs and check magnesium level. Preliminary echocardiogram results shows ejection fraction greater than 55% without significant valvular heart disease. Exam Vital signs and Labs for Last 24 Hours: Temp Pulse Resp BP Pulse Ox 97.9 F 81 18 105/46 L 96 03/11/18 04:00 03/11/18 04:00 03/11/18 04:00 03/11/18 04:00 03/11/18 04:00 Laboratory Results - last 24 hr 03/10/18 08:18: Random Tobramycin 1.8 03/10/18 08:18: WBC 10.5, RBC 3.16 L, Hgb 10.8 L, Hct 32.7 L, MCV 103.3 H, MCH 34.1 H, MCHC 33.0, RDW 16.7, Plt Count 419 D, MPV 6.7 L, Neut % (Auto) 85.2 H, Lymph % (Auto) 10.1, [place] % (Auto) 4.3, Eos % (Auto) 0.3, Baso % (Auto) 0.1, Neut # (Auto) 8.9 H, Lymph # (Auto) 1.1, [place] # (Auto) 0.5, Eos # (Auto) 0.0, Baso # (Auto) 0.0, Total Counted 100, Neutrophils % (Manual) 76, Band Neutrophils % 3.0, Lymphocytes % (Manual) 12, Monocytes % (Manual) 8, Eosinophils % (Manual) 1, Platelet Estimate Normal, Macrocytosis 1+ 03/10/18 08:18: Sodium 137, Potassium 3.3 L D, Chloride 100, Carbon Dioxide 31, Anion Gap 9.3, BUN 13, Creatinine 0.62, Estimated Creat Clear 60, Estimated GFR 97, Est GFR ( Amer) 117, Glucose 212 H D, Calcium 7.4 L 03/10/18 12:00: Blood Type O Positive, Antibody Screen Negative 03/10/18 20:50: POC Glucose 324 H* 03/11/18 06:10: POC Glucose 165 H 03/11/18 06:30: WBC 9.4, RBC 3.31 L, Hgb 10.6 L, Hct 33.6 L, MCV 101.3 H, MCH 32.0 H, MCHC 31.6 L, RDW 16.7, Plt Count 456 H, MPV 6.8 L, Neut % (Auto) 77.7, Lymph % (Auto) 14.0, [place] % (Auto) 7.0, Eos % (Auto) 1.0, Baso % (Auto) 0.2, Neut # (Auto) 7.3, Lymph # (Auto) 1.3, [place] # (Auto) 0.7, Eos # (Auto) 0.1, Baso # (Auto) 0.0 03/11/18 06:30: Sodium 140, Potassium 2.7 L*, Chloride 98, Carbon Dioxide 35 H, Anion Gap 9.7, BUN 11, Creatinine 0.45 L D, Estimated Creat Clear 60, Estimated GFR 140, Est GFR ( Amer) 170 D, Glucose 146 H D, Calcium 7.2 L 03/11/18 06:30: PT 12.1 H, INR 1.18 H, APTT 37.6 H I & O for Last 24 hours: Intake & Output 03/08/18 03/09/18 03/10/18 03/11/18 11:59 11:59 11:59 11:59 Intake Total 1280 / 1280 440 / 440 2427 / 2427 890 / 890 Output Total 400 / 400 800 / 800 250 / 250 Balance 880 / 880 -360 / -360 2427 / 2427 640 / 640 Weight 147 lb 2.995 oz 147 lb 2.995 oz Microbiology Reports for the Last 24 Hours: Microbiology 03/05/18 17:06 Blood Blood Culture - Final NO GROWTH AFTER 5 DAYS 03/05/18 17:06 Blood Blood Culture - Final NO GROWTH AFTER 5 DAYS - *Routine Respiratory Exam Present: CTA bilaterally, diminished air movement. Absent: accessory muscle use, rales, rhonchi, wheezes - *Routine Cardiovascular Exam Present: RRR. Absent: murmur, gallop, rubs Progress Note: A&P (1) Diabetic foot infection Status: Acute Current Visit: Yes (2) Gangrene Status: Acute Current Visit: Yes (3) Renal insufficiency Status: Acute Current Visit: Yes (4) Diabetes mellitus Status: Acute Current Visit: Yes (5) Hyponatremia Status: Acute Current Visit: Yes (6) Tobacco use Status: Acute Current Visit: Yes Assessment and Plan for All Diagnoses:: With normal ejection fraction on echocardiogram and patient's denial of chest discomfort or pain, patient appears to be low and acceptable risk to proceed with surgery later today. Start IV potassium runs. Check magnesium level. Review of telemetry shows sinus rhythm.
--- NOTE | 2018-03-11 11:25 | Progress Note ---
[facility] Anesthesia Checklist - Patient Identification Patient Identification: Arm Band, Verbal (Name & ) - Structural Data Admitted From: Inpatient Planned Operative Procedure/s: Bilateral BKA Consent for Planned Operative Procedure(s) Verified: Yes Verified Documents: Surgical Consent, History and Physical, Cardiac Clearance - NPO Status Verified Time NPO: 00:00 - Chart Verification Results Verified: CBC, BMP, PT, PTT, INR - Additional verifications Anesthesia Reactions: No - Airway Assessment C-Spine Mobility Assessed: Yes TMJ Mobility Assessed: Yes Dentition: Edentulous - Neurological Assessment Level of Consciousness: Awake Hx Seizures: Yes Numbness or tingling in extremities: Yes - Anesthesia Plan Anesthesia Risk discussed: Yes Anesthesia Plan: Verified ASA Class: III Anesthesia Type: General [facility] History I have reviewed the patient's past medical history: Yes Medical History: Reports:: Diabetes Mellitus Type 2, Gastroesophageal Reflux Disease(GERD), Hyperlipidemia, MRSA, Seizures Denies:: Cancer, Diabetes Mellitus Type 1 Other Medical History: Reports: Arthritis, Other (SOB) Other Surgeries: Yes: Tubal Ligation Amputation: No - *Social History Educational Level: Attended High School Smoking Status: Current every day smoker Tobacco Type: cigarettes Alcohol Intake: never Occupational Status: disabled Housing: [facility] - Psychiatric History Expresses thoughts of harming self/others: None Suicide Plan Description: No Plan *Family Hx:: Unable to obtain
--- NOTE | 2018-03-11 11:59 | Progress Note ---
Internal Medicine - PN: Subj *Date: 03/11/18 *Time: 11:58 Exam Vital signs and Labs for Last 24 Hours: Temp Pulse Resp BP Pulse Ox 98.5 F 75 20 101/59 L 97 03/11/18 11:53 03/11/18 11:53 03/11/18 11:53 03/11/18 11:53 03/11/18 11:53 Laboratory Results - last 24 hr 03/08/18 12:26: POC Glucose 155 H 03/10/18 12:00: Blood Type O Positive, Antibody Screen Negative 03/10/18 20:50: POC Glucose 324 H* 03/11/18 06:10: POC Glucose 165 H 03/11/18 06:30: WBC 9.4, RBC 3.31 L, Hgb 10.6 L, Hct 33.6 L, MCV 101.3 H, MCH 32.0 H, MCHC 31.6 L, RDW 16.7, Plt Count 456 H, MPV 6.8 L, Neut % (Auto) 77.7, Lymph % (Auto) 14.0, [place] % (Auto) 7.0, Eos % (Auto) 1.0, Baso % (Auto) 0.2, Neut # (Auto) 7.3, Lymph # (Auto) 1.3, [place] # (Auto) 0.7, Eos # (Auto) 0.1, Baso # (Auto) 0.0 03/11/18 06:30: Sodium 140, Potassium 2.7 L*, Chloride 98, Carbon Dioxide 35 H, Anion Gap 9.7, BUN 11, Creatinine 0.45 L D, Estimated Creat Clear 60, Estimated GFR 140, Est GFR ( Amer) 170 D, Glucose 146 H D, Calcium 7.2 L 03/11/18 06:30: PT 12.1 H, INR 1.18 H, APTT 37.6 H 03/11/18 06:30: Magnesium 1.0 L I & O for Last 24 hours: Intake & Output 03/08/18 03/09/18 03/10/18 03/11/18 11:59 11:59 11:59 11:59 Intake Total 1280 / 1280 440 / 440 2427 / 2427 1071.667 / 1071.667 Output Total 400 / 400 800 / 800 550 / 550 Balance 880 / 880 -360 / -360 2427 / 2427 521.667 / 521.667 Weight 147 lb 2.995 oz 147 lb 2.995 oz Microbiology Reports for the Last 24 Hours: Microbiology 03/05/18 17:06 Blood Blood Culture - Final NO GROWTH AFTER 5 DAYS 03/05/18 17:06 Blood Blood Culture - Final NO GROWTH AFTER 5 DAYS - *Routine HEENT Exam Head: Present: normocephalic Eye: Present: PERRL ENT: Present: mucous membranes moist - *Routine Neck Exam Present: supple. Absent: lymphadenopathy - *Routine Respiratory Exam Present: diminished air movement - *Routine Cardiovascular Exam Present: RRR - *Routine Abdominal Exam Present: soft, normoactive bowel sounds. Absent: tenderness - *Routine Extremities Exam Absent: cyanosis, clubbing, edema Comments: dressing to dayday lower ext - *Routine Skin Exam Present: warm, wounds, gangrene. Absent: rash - *Routine Neurological Exam Present: alert, oriented X3 Assessment and Plan (1) Diabetic foot infection Current visit: Yes Status: Acute Category: Medical Code(s): E11.628 - Type 2 diabetes mellitus with other skin complications; L08.9 - Local infection of the skin and subcutaneous tissue, unspecified (2) Gangrene Current visit: Yes Status: Acute Category: Medical Code(s): I96 - Gangrene, not elsewhere classified (3) Renal insufficiency Current visit: Yes Status: Acute Category: Medical Code(s): N28.9 - Disorder of kidney and ureter, unspecified (4) Diabetes mellitus Current visit: Yes Status: Acute Qualifiers: Diabetes mellitus type: type 2 Diabetes mellitus assisted insulin use: unspecified assisted insulin 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 - Assessment and plan all Dx Assessment and Plan for all problems:: discussed with destiny, he will round later today all orders per destiny
[2018-03-11 17:14] LABS: Microscopic, Urine URINE MICROSCOPIC (MICROSCOPIC)
[2018-03-11 17:22] LABS: Appearance,Urine SL CLOUDY (Clear); Bilirubin,Urine Negative (Negative); Blood, Urine TRACE-L (Negative); Color,Urine YELLOW (Yellow); Glucose,Urine (UA) Negative (Negative); Ketones,Urine Negative (Negative); Leukocyte Esterase,Urine Negative (Negative); Protein,Urine Negative (Negative); Specific Gravity, Urine 1.025 (1.005-1.030); Urobilinogen,Urine 0.2 EU/dl (0.2)
[2018-03-11 17:33] LABS: Bacteria,Urine Trace /lpf; RBC,Urine Occasional #/hpf (0-3); WBC,Urine Occasional #/hpf (0-3)
--- NOTE | 2018-03-11 19:36 | Cardiology Report ---
PROCEDURE: 2-D M-mode and color Doppler study INDICATIONS FOR THE TEST: Chest pain COPD Heart Murmur Tobacco Smoking+ Palpitations Fatigue Syncope Edema Hypertension Diabetes Mellitus+ Rheumatic Fever SOB+[place] Obesity+Hyperlipidemia+ Family History HD Additional History non healing diabetic ulcers, noncompliance, refused cath and myoview, limited echo imaging PATIENT INFORMATION HEIGHT: 62 WEIGHT: 147 GENDER: Female B/P: 112/57 2-D/M-MODE INTERPRETATION: 2-D MEASUREMENTS OBSERVED VALUES IN CMS Right Ventricular Dimension (RVDd) 2.9 Interventricular Septum (Thickness)(IVsd) 1.1 Left Ventricular Internal Dimensions(LVIDd) 2.4 Left Ventricular Posterior Wall (Thickness)(LVPWd) 1.1 Aortic Root 3.3 Aortic Cusp Separation 2.1 Left Atrial Dimensions (LAD) 2.4 2D 1. Left atrium is mildly enlarged, left ventricle is normal size, mild concentric left ventricular hypertrophy, visually estimated ejection fraction 55% with no regional wall motion abnormality. 2. The right atrium and ventricle are relatively normal size and 3. The aortic valve is minimally thickened and calcified. 4. The mitral and tricuspid valvular grossly normal. 5. The pulmonic valve is poorly visualized. 6. No significant pericardial effusion noted. DOPPLER INTERROGATION: Doppler interrogation of the aortic, mitral and tricuspid valvular presence of mild mitral and tricuspid regurgitation, tricuspid regurgitant velocity is inadequate for calculation of the right ventricular systolic pressure, Doppler evidence of impaired LV relaxation seen, there is no tissue Doppler performed. CONCLUSION: 1. Technically difficult study because of the patient's factor and poor acoustic windows 2. Mildly enlarged left atrium, normal left ventricular size, mild concentric left ventricular hypertrophy, visually estimated ejection fraction of 55% with no regional wall motion abnormality, Doppler evidence of impaired relaxation seen. 3. Mild mitral and tricuspid regurgitation 4. No significant pericardial effusion noted.
--- NOTE | 2018-03-11 19:45 | Progress Note ---
[facility] Anesthesia Record Part I Intake, IV Amount: 1,600 Estimated blood loss (mL): 25 Urine output (mL): 200 Blood Products used (#): none Blood Pressure: 123/60 (98) SaO2: 98 Pulse Rate: 127 Respiratory Rate: 20 Temperature: 98.5 F Patient is:: Awake, Mask O2, Stable Stable to PACU at:: 19:35
--- NOTE | 2018-03-11 19:46 | Progress Note ---
[facility] Anesthesia Record Part II Discharge Time: 20:05 Destination: Medical Surgical Department PACU nurse assessment reviewed?: Yes Patient Condition:: Good Anesthesia Complications:: None
--- NOTE | 2018-03-11 23:41 | Operative Note ---
Date of procedure: 03/11/18 Pre-op Diagnosis:: bilateral lower extremity non-healing, infected diabetic ulcers with necrosis of multiple digits Post-op Diagnosis:: SAME Procedure performed:: bilateral below-knee amputation Surgeon:: MD Sanchez Bui MD Scarifier Operator(s):: Lenora Wan CST TALENT ENGINEER:: Layo Rodríguez Anesthesia: GETA Estimated blood loss (mL): 100 Clinical Note:: 62 year-old female with chronic, non-healing, infected diabetic ulcers on bilateral lower extremities who failed local wound care and prolonged therapy with oral antibiotics. 5 days of IV antibiotics have not improved her condition. She has a history of diabetes, heavy tobacco use, MRSA infection, and documented noncompliance with medical treatment. She is a poor historian and is unable to recall when or how she developed ulcerations on her feet. She is a halfway resident and non-ambulatory; she is also unable to recall the last time she stood or walked. She is unable to describe her symptoms in detail; she is not sure if she can feel her feet, but does report severe pain from the mid-tibia distally bilaterally. Since admission she has been on ertapenem, levofloxacin and tobramycin. CXR on 03/08/2018 documented possible pneumonia, and BLE angiogram revealed largely normal arterial flow to BLE. Clinically, she has mu ltiple areas of ulceration circumferentially around bilateral feet and ankles, extending to the distal 1/3 of the tibia. They have ulcerated full-thickness through the epidermis/dermis with exposed underlying fascia but no exposed bone. She has multiple black, necrotic digits and all ulcers/digits are draining copious amounts of foul-smelling purulent discharge. BLE are erythematous extending from the midfoot proximally to the 1/3 distal tibia, and the skin over bilateral tibiae is dry with thick scales. Pedal pulses are weakly palpable; patient does not cooperate with sensory exam, citing severe pain. Given the extensive nature of her infection and multiple areas of necrosis, I believe surgical treatment is warranted. I do not believe surgical debridement with wound care will be enough to heal her wounds, and at the very least, she should need a transmetatarsal amputation to remove the multiple necrotic digits; I do not believe she will heal a TMT. I discussed risks of surgical treatment with the patient, as well as the alternative consisting on continued medical treatment, and she is in agreement with surgery. I proposed an exam under anesthesia, followed by I&D if possible, but likely BKA bilaterally. I discussed the risk of bleeding, continued infection, wound healing difficulty/failure necessitating revision surgery, and the possibility of further amputation to an AKA. The patient vocalized understanding of the plan and was in agreement; she wanted to proceed with the surgery that had the best chance at improving her condition without repeat trips to the OR, and if that meant BKA she was agreeable. Operative findings:: BLE gangrenous, with multiple infected ulcers and necrotic digits; no abscesses or infection spreading proximal beyond the distal 1/3 tibia. skin was very friable and there was difficulty getting it to hold sutures when the BKA stumps were closed. Operative note:: The patient was identified in preoperative holding and bilateral lower extremities signed by myself. She was taken to the OR, where she was placed supine on the operative table. She was continued on her pre-existing regimen of IV antibiotics: ertapenem, levofloxacin, and tobramycin. Her levofloxacin was due, so a new dose was given in the OR. Once the patient was positioned supine, general endotracheal anesthesia was induced. After the patient was asleep, bandages were removed from BLE and pre-op examination confirmed: for detailed descripton of wounds see HPI. Dr. Fatima also examined the patient's BLE and was in agreement that BKA was necessary; I&D alone would not be sufficient to heal her wounds and clear her infection. At this point, non-sterile tourniquets were placed on both upper thighs and the BLE were prepped with a betadine prep, ending at the ankles. Impervious stockinettes were applied to BLE and the areas of infection sealed off from the rest of the extremity. The remainder of BLE were then draped in the usual sterile fashion. Time out was performed, identifying the correct patient and correct extremity/ies. We begun the procedure with the RLE first. Incisions were drawn with a marking pin, marking the level of the planned tibial cut and drawing out anterior and long posterior flaps. Next the limb was elevate and tourniquet inflated to 200mmHg; it was not exsanuinated with an esmarch. Once the tourniquet was inflated, a #10 blade was used to incise the skin along the predetermined lines of incision. The anterior incision was made transversely across the tibia approximately 10cm distal to the tibial tubercle. Subcutaneous tissue was incised down to the bone and dissection carried out medially and laterally using bovie. Care was taken to identify and ligate peroneal, anterior tibial, and posterior tibial neurovascular bundles. The veins and arteries were isolated and doubly ligated with 0 silk ties before they were transected. The nerves were sharply transected with a 10 blade. Once the critical neurovascular bundles were tied off, the remainder of the anterior and lateral compartment musculature was divided with a bovie. Next the soft tissue was cleared off the tibia using on osteotome and the desired level of transection was chosen 2cm proximal to the anterior skin flap edge. Using a 10 blade, the periosteum was incision and reflected back off the bone. An oscillating saw was then used to transect the tibial shaft perpindicular to its long axis; a lap sponge was placed behind the bone to protect the underlying musculature. After the tibia was transected, the fibula was cut as well; the saw was used to transect the fibula 1cm proximal to the tibial cut. Both bones now transected, the leg was flexed and an amputation knife used to cut a thick posterior flap and complete the amputation. The remainder of the leg was excised in this fashion, and placed in a biohazard/specimen bag. The tourniquet was then dropped and the leg inspected for bleeding. Any bleeding was controlled with either electrocautery or ligation. The anterior edge of the tibia was beveled and smoothed with a rasp. Once the leg was dry, it was irrigated with normal saline and the stump closed in a layered fashion. 0-vicryl was used to approximate the anterior and posterior musculature/fascia. Next, the subcutaneous tissue was reapproximated with 2-0 vicryl, followed by 2-0 nylon on the skin in an interrupted horizontal mattress suture. The skin was very friable and many sutures pulled through the tissue, but the wound edges reapproximated well. By the end of the case, the skin edges appeared slightly dusky but had good capillary refill. The wound was then wrapped with sterile dressings while we moved to the left leg. Dr. Fatima joined the case at this point and was co-surgeon for the left BKA. The same technique was use to amputate the left lower extremity below the knee. The anterior/lateral skin and muscles were incised, all major neurovascular bundles were isolated, ligated and transected. The tibia and fibula were transected with an oscillating saw and edges beveled with a rasp. Tourniquet was released and hemostasis obtained. The stump was irrigated and closed in the same layered fashion. The skin on the LLE was more friable than the right, and there was some difficulty getting the sutures to hold in the skin. Bilateral BKA stumps were then dressed with sterile dressings: xeroform, 4x4s, ABD pad, sterile webril and SPIKE wraps. The stumps were not splinted because the patient has moderate flexion contractures of the knees and cannot straighten the knees. Both amputated limbs were placed in biohazard/specimen bags, where they will be appropriately disposed of. The estimated blood loss for both legs was around 100cc. The total tourniquet time was around 71 minutes; approximately 47 minutes on the RLE, 24min on the left. The patient tolerated the procedure well without any intraoperative complications. She was extubated and transferred to PACU in good condition. Tourniquet time (min): 71 (47 min on RLE; 24 min LLE) Condition: stable Disposition: floor Specimens:: bilateral lower legs Complications:: no intra-operative complications
[2018-03-12 06:16] LABS: Basophils % 0.2 % (0.1-2.0); Eosinophils % 0.2 % (0.1-12.0); Hematocrit 28.7 % (37.0-47.0); Lymphocytes % 9.6 % (10-50); Mean Corpuscular HGB Conc 30.8 g/dL (31.8-35.4); Mean Corpuscular Hemoglobin 31.7 pg (27.0-31.2); Mean Corpuscular Volume 102.9 fl (81-99); Mean Platelet Volume 6.8 fl (7.4-10.4); Monocytes # 0.5 K/mm3 (0.1-1.0); Monocytes % 4.5 % (1.7-9.3); Neutrophils # 8.7 K/mm3 (1.8-7.8); Neutrophils % 85.4 % (37.0-80.0); Platelet Count 380 K/mm3 (142-424); Red Blood Count 2.79 M/mm3 (4.20-5.40); Red Cell Distribution Width 16.7 % (11.5-17.5); White Blood Count 10.1 K/mm3 (4.8-10.8)
[2018-03-12 06:30] LABS: Hemoglobin 8.8 g/dL (12.2-16.2)
[2018-03-12 06:36] LABS: Anion Gap 7.5 mEq/L (5-15); Calcium 7.4 mg/dL (8.5-10.1)
[2018-03-12 06:40] LABS: Potassium 2.5 mmoL/L (3.5-5.1)
--- NOTE | 2018-03-12 07:46 | Progress Note ---
Subjective Date: 03/12/18 Time: 07:42 Principal diagnosis: wet gangrene bilateral feet/lower leg Interval history: 62 yo WF in bed eating breakfast in NAD. S/P bilateral BKA yesterday. Denies any chest pain. Feeling better. Exam Vital signs and Labs for Last 24 Hours: Temp Pulse Resp BP Pulse Ox 98 F 88 19 105/53 L 100 03/12/18 06:00 03/12/18 06:00 03/12/18 06:00 03/12/18 06:00 03/12/18 06:00 Laboratory Results - last 24 hr 03/08/18 12:26: POC Glucose 155 H 03/11/18 06:30: Magnesium 1.0 L 03/11/18 13:17: Potassium 2.8 L* 03/11/18 15:15: Urine Color Yellow, Urine Appearance Sl cloudy, Urine pH 6.0, Ur Specific [place] 1.025, Urine Protein Negative, Urine Glucose (UA) Negative, Urine Ketones Negative, Urine Blood Trace-l, Urine Nitrate Negative, Urine Bilirubin Negative, Urine Urobilinogen 0.2, Ur Leukocyte Esterase Negative, Urine RBC Occasional, Urine WBC Occasional, Ur Squamous Epith Cells 3-5, Urine Bacteria Trace 03/11/18 20:28: POC Glucose 138 H 03/11/18 22:58: POC Glucose 161 H 03/12/18 00:45: Tobramycin Trough 0.2 03/12/18 05:35: WBC 10.1, RBC 2.79 L, Hgb 8.8 L D, Hct 28.7 L, MCV 102.9 H, MCH 31.7 H, MCHC 30.8 L, RDW 16.7, Plt Count 380, MPV 6.8 L, Neut % (Auto) 85.4 H, Lymph % (Auto) 9.6 L, [place] % (Auto) 4.5, Eos % (Auto) 0.2, Baso % (Auto) 0.2, Neut # (Auto) 8.7 H, Lymph # (Auto) 1.0, [place] # (Auto) 0.5, Eos # (Auto) 0.0, Baso # (Auto) 0.0 03/12/18 05:35: Sodium 138, Potassium 2.5 L*, Chloride 97 L, Carbon Dioxide 36 H , Anion Gap 7.5, BUN 7 D, Creatinine 0.41 L, Estimated Creat Clear 64, Estima jake GFR 156, Est GFR ( Amer) 189, Glucose 148 H, Calcium 7.4 L 03/12/18 06:31: POC Glucose 164 H I & O for Last 24 hours: Intake & Output 03/09/18 03/10/18 03/11/18 03/12/18 11:59 11:59 11:59 11:59 Intake Total 440 / 440 2427 / 2427 1221.667 / 1211.170 3479 / 1740 Output Total 800 / 800 550 / 550 700 / 700 Balance -360 / -360 2427 / 2427 671.667 / 691.463 9119 / 1040 Weight 147 lb 2.995 oz 157 lb 9 oz - *Routine Respiratory Exam Present: decreased breath sounds, rhonchi, diminished air movement. Absent: accessory muscle use, rales, wheezes - *Routine Cardiovascular Exam Present: RRR. Absent: murmur, gallop, rubs - *Routine Extremities Exam Absent: edema, calf tenderness - *Routine Neurological Exam Present: alert, oriented X3, moving all extremities Progress Note: A&P (1) Diabetic foot infection Status: Acute Current Visit: Yes (2) Gangrene Status: Acute Current Visit: Yes (3) Renal insufficiency Status: Acute Current Visit: Yes (4) Diabetes mellitus Status: Acute Current Visit: Yes (5) Hyponatremia Status: Acute Current Visit: Yes (6) Tobacco use Status: Acute Current Visit: Yes (7) Hypokalemia Status: Acute Current Visit: Yes (8) Hypomagnesemia Status: Acute Current Visit: Yes Assessment and Plan for All Diagnoses:: Pt getting potassium supplement. She received Magnesium supplement yesterday. Some Hypotension post-op but resolved. Cardiac status stable. Will see PRN.
[2018-03-12 08:16] LABS: Lymphocytes % 8 % (10-50); Monocytes % 3 % (2-9); Neutrophils % 88 % (42-76); Total Cells Counted 100
[2018-03-12 08:18] LABS: Macrocytosis 1+
--- NOTE | 2018-03-12 09:16 | Progress Note ---
Internal Medicine - PN: Subj *Date: 03/12/18 *Time: 09:14 Exam Vital signs and Labs for Last 24 Hours: Temp Pulse Resp BP Pulse Ox 98.2 F 88 19 105/53 L 100 03/12/18 08:00 03/12/18 06:00 03/12/18 06:00 03/12/18 06:00 03/12/18 06:00 Laboratory Results - last 24 hr 03/11/18 13:17: Potassium 2.8 L* 03/11/18 15:15: Urine Color Yellow, Urine Appearance Sl cloudy, Urine pH 6.0, Ur Specific [place] 1.025, Urine Protein Negative, Urine Glucose (UA) Negative, Urine Ketones Negative, Urine Blood Trace-l, Urine Nitrate Negative, Urine Bilirubin Negative, Urine Urobilinogen 0.2, Ur Leukocyte Esterase Negative, Urine RBC Occasional, Urine WBC Occasional, Ur Squamous Epith Cells 3-5, Urine Bacteria Trace 03/11/18 20:28: POC Glucose 138 H 03/11/18 22:58: POC Glucose 161 H 03/12/18 00:45: Tobramycin Trough 0.2 03/12/18 05:35: WBC 10.1, RBC 2.79 L, Hgb 8.8 L D, Hct 28.7 L, MCV 102.9 H, MCH 31.7 H, MCHC 30.8 L, RDW 16.7, Plt Count 380, MPV 6.8 L, Neut % (Auto) 85.4 H, Lymph % (Auto) 9.6 L, [place] % (Auto) 4.5, Eos % (Auto) 0.2, Baso % (Auto) 0.2, Neut # (Auto) 8.7 H, Lymph # (Auto) 1.0, [place] # (Auto) 0.5, Eos # (Auto) 0.0, Baso # (Auto) 0.0, Total Counted 100, Neutrophils % (Manual) 88 H, Lymphocytes % (Manual) 8 L, Atypical Lymphs % 1.0, Monocytes % (Manual) 3, Platelet Estimate Normal, RBC Morphology Not Reportable, Macrocytosis 1+ 03/12/18 05:35: Sodium 138, Potassium 2.5 L*, Chloride 97 L, Carbon Dioxide 36 H , Anion Gap 7.5, BUN 7 D, Creatinine 0.41 L, Estimated Creat Clear 64, Estimated GFR 156, Est GFR ( Amer) 189, Glucose 148 H, Calcium 7.4 L 03/12/18 06:31: POC Glucose 164 H I & O for Last 24 hours: Intake & Output 03/09/18 03/10/18 03/11/18 03/12/18 11:59 11:59 11:59 11:59 Intake Total 440 / 440 2427 / 2427 1221.667 / 9258.025 8503 / 1980 Output Total 800 / 800 550 / 550 700 / 700 Balance -360 / -360 2427 / 2427 671.667 / 255.595 0314 / 1280 Weight 147 lb 2.995 oz 157 lb 9 oz - *Routine HEENT Exam Head: Present: normocephalic Eye: Present: PERRL ENT: Present: mucous membranes moist - *Routine Neck Exam Present: supple. Absent: lymphadenopathy - *Routine Respiratory Exam Present: wheezes, diminished air movement - *Routine Cardiovascular Exam Present: RRR - *Routine Abdominal Exam Present: soft, normoactive bowel sounds. Absent: tenderness - *Routine Extremities Exam Present: amputation. Absent: cyanosis, clubbing, edema Comments: dressing to dayday lower ext s/p bka dayday - *Routine Skin Exam Present: warm, wounds. Absent: rash Comments: s/p dayday bka dressing to dayday le, small dressing to left buttocks(old) - *Routine Neurological Exam Present: alert, oriented X3 Assessment and Plan (1) Diabetic foot infection Current visit: Yes Status: Acute Category: Medical Code(s): E11.628 - Type 2 diabetes mellitus with other skin complications; L08.9 - Local infection of the skin and subcutaneous tissue, unspecified (2) Gangrene Current visit: Yes Status: Acute Category: Medical Code(s): I96 - Gangrene, not elsewhere classified (3) Renal insufficiency Current visit: Yes Status: Acute Category: Medical Code(s): N28.9 - Disorder of kidney and ureter, unspecified (4) Diabetes mellitus Current visit: Yes Status: Acute Qualifiers: Diabetes mellitus type: type 2 Diabetes mellitus middle or intermediate school principal insulin use: unspecified middle or intermediate school principal insulin 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 (7) Hypokalemia Current visit: Yes Status: Acute Category: Medical Code(s): E87.6 - Hypokalemia (8) Hypomagnesemia Current visit: Yes Status: Acute Category: Medical Code(s): E83.42 - Hypomagnesemia (9) S/P BKA (below knee amputation) bilateral Start date: 03/11/18 Current visit: Yes Status: Acute Category: Surgical Code(s): Z89.512 - Acquired absence of left leg below knee; Z89.511 - Acquired absence of right leg below knee - Assessment and plan all Dx Assessment and Plan for all problems:: rounded with destiny all orders per destiny
--- NOTE | 2018-03-12 09:48 | Pharmacy Consult Notes ---
- Pharmacy Consult Date: 03/12/18 Time: 09:45 Referring provider: DR. BEACH Reason for Consult:: TOBRAMYCIN TROUGH LEVEL Allergies and ADEs:: Allergies Allergy/AdvReac Type Severity Reaction Status Date / Time codeine Allergy Mild Verified 10/16/17 18:30 [From TYLENOL-CODEINE #3] morphine [MORPHINE] Allergy Mild Verified 10/16/17 18:30 tramadol [From ULTRAM] Allergy Mild Verified 10/16/17 18:30 amoxicillin [AMOXICILLIN] Allergy Unknown Verified 10/16/17 18:30 Home Medications:: Home Medications Medication Instructions Recorded Confirmed Type acetaminophen 500 mg tablet 500 mg PO Q6HP PRN tab 06/22/17 03/06/18 History atorvastatin 20 mg tablet 20 mg PO HS tab 06/22/17 03/06/18 History divalproex 125 mg tablet,delayed 125 mg PO HS tab 06/22/17 03/06/18 History release furosemide 20 mg tablet 20 mg PO DAILY tab 06/22/17 03/06/18 History gabapentin 600 mg tablet 600 mg PO QID tab 06/22/17 03/06/18 History hydrocodone 7.5 mg-acetaminophen 1 tab PO TID tab 06/22/17 03/06/18 History 325 mg tablet metformin 1,000 mg tablet 1,000 mg PO BID 06/22/17 03/06/18 History multivitamin with minerals tablet 1 tab-cap PO DAILY tab 06/22/17 03/06/18 His tory omeprazole 40 mg capsule,delayed 20 mg PO HS cap 06/22/17 03/06/18 History release tizanidine 4 mg capsule 4 mg PO TIDP PRN 06/22/17 03/06/18 History Fluconazole [Diflucan 100mg tablet] 100 mg PO DAILY 03/06/18 03/06/18 History Insulin Detemir [Levemir 100 14 unit SQ HS 03/06/18 03/06/18 History units/mL 10mL vial] Insulin Regular, Human [Humulin R 0 unit SQ BIDP PRN 03/06/18 03/06/18 History Insulin 100 Units/mL 10mL Vial] LORazepam [Ativan 0.5mg tablet] 0.25 mg PO BID 03/06/18 03/06/18 History Loperamide HCl [Imodium 2 mg 2 mg PO QIDP PRN 03/06/18 03/06/18 History capsule] Loratadine [Claritin 10mg Tablet] 10 mg PO DAILY 03/06/18 03/06/18 History Mag Carb/Aluminum Hydrox/Algin 30 ml PO QIDP PRN 03/06/18 03/06/18 History [Gaviscon Liquid] Phenol [Chloraseptic] 1 spray MM BIDP PRN 03/06/18 03/06/18 History Sertraline HCl [Zoloft 100mg 100 mg PO DAILY 03/06/18 03/06/18 History tablet] guaiFENesin [Robafen] 10 ml PO Q4HP PRN 03/06/18 03/06/18 History Height: 1.6 m Weight: 71.469 kg Laboratory Results:: Laboratory Results - last 24 hr 03/11/18 13:17: Potassium 2.8 L* 03/11/18 15:15: Urine Color Yellow, Urine Appearance Sl cloudy, Urine pH 6.0, Ur Specific [place] 1.025, Urine Protein Negative, Urine Glucose (UA) Negative, Urine Ketones Negative, Urine Blood Trace-l, Urine Nitrate Negative, Urine Bilirubin Negative, Urine Urobilinogen 0.2, Ur Leukocyte Esterase Negative, Urine RBC Occasional, Urine WBC Occasional, Ur Squamous Epith Cells 3-5, Urine Bacteria Trace 03/11/18 20:28: POC Glucose 138 H 03/11/18 22:58: POC Glucose 161 H 03/12/18 00:45: Tobramycin Trough 0.2 03/12/18 05:35: WBC 10.1, RBC 2.79 L, Hgb 8.8 L D, Hct 28.7 L, MCV 102.9 H, MCH 31.7 H, MCHC 30.8 L, RDW 16.7, Plt Count 380, MPV 6.8 L, Neut % (Auto) 85.4 H, Lymph % (Auto) 9.6 L, [place] % (Auto) 4.5, Eos % (Auto) 0.2, Baso % (Auto) 0.2, Neut # (Auto) 8.7 H, Lymph # (Auto) 1.0, [place] # (Auto) 0.5, Eos # (Auto) 0.0, Baso # (Auto) 0.0, Total Counted 100, Neutrophils % (Manual) 88 H, Lymphocytes % (Manual) 8 L, Atypical Lymphs % 1.0, Monocytes % (Manual) 3, Platelet Estimate Normal, RBC Morphology Not Reportable, Macrocytosis 1+ 03/12/18 05:35: Sodium 138, Potassium 2.5 L*, Chloride 97 L, Carbon Dioxide 36 H , Anion Gap 7.5, BUN 7 D, Creatinine 0.41 L, Estimated Creat Clear 64, Estimated GFR 156, Est GFR ( Amer) 189, Glucose 148 H, Calcium 7.4 L 03/12/18 06:31: POC Glucose 164 H Medical History: Reports:: Diabetes Mellitus Type 2, Gastroesophageal Reflux Disease(GERD), Hyperlipidemia, MRSA, Seizures Denies:: Cancer, Diabetes Mellitus Type 1 Assessment and Plan (1) Diabetic foot infection Current visit: Yes Status: Acute Category: Medical Code(s): E11.628 - Type 2 diabetes mellitus with other skin complications; L08.9 - Local infection of the skin and subcutaneous tissue, unspecified (2) Gangrene Current visit: Yes Status: Acute Category: Medical Code(s): I96 - Gangrene, not elsewhere classified (3) Renal insufficiency Current visit: Yes Status: Acute Category: Medical Code(s): N28.9 - Disorder of kidney and ureter, unspecified (4) Diabetes mellitus Current visit: Yes Status: Acute Qualifiers: Diabetes mellitus type: type 2 Diabetes mellitus intermediate card tender insulin use: unspecified intermediate card tender insulin 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 (7) Hypokalemia Current visit: Yes Status: Acute Category: Medical Code(s): E87.6 - Hypokalemia (8) Hypomagnesemia Current visit: Yes Status: Acute Category: Medical Code(s): E83.42 - Hypomagnesemia (9) S/P BKA (below knee amputation) bilateral Start date: 03/11/18 Current visit: Yes Status: Acute Category: Surgical Code(s): Z89.512 - Acquired absence of left leg below knee; Z89.511 - Acquired absence of right leg below knee - Assessment and plan all Dx Assessment and Plan for all problems:: BASED ON TOBRAMYCIN TROUGH LEVEL AND PATIENT FACTORS, RECOMMEND CONTINUING TOBRAMYCIN 400 MG IV Q36H. TODAY IS DAY 5 OF TOBRAMYCIN THERAPY, DAY 7 OF INVANZ, AND DAY 4 OF LEVAQUIN.
--- NOTE | 2018-03-12 14:19 | Progress Note ---
Subjective Date: 03/12/18 Time: 12:30 Principal diagnosis: wet gangrene bilateral feet/lower leg Interval history: POD #1 s/p bilateral BKA, patient doing well. hypotensive in OR with sats in 70's in PACU; came up nicely with non-rebreather, and patient has been stable overnight. this morning she reported pain at the surgical sites but otherwise was well; no chest pain or SOB. potassium low again this morning, being replaced intraveneously. PN: Obj Ex Vital signs: Temp Pulse Resp BP Pulse Ox 98.1 F 88 16 92/42 L 100 03/12/18 14:00 03/12/18 14:00 03/12/18 14:00 03/12/18 14:00 03/12/18 14:00 Narrative: AAOx3, NAD patient affect, coloring, alertness much improved compared to pre-op BLE BKA surgical dressings c/d/i w/o strikethrough, elevated on pillow - Constitutional no acute distress - Routine HEENT Exam Head: Present: normocephalic Eye: Present: EOMI ENT: Present: mucous membranes moist - Routine Respiratory Exam Present: CTA bilaterally. Absent: accessory muscle use, respiratory distress - Routine Cardiovascular Exam Present: RRR - Urinary Catheter Management Goss Cath placed during this visit: yes Urethral indwelling: No Insertion date: 03/11/18 Insertion time: 13:00 Progress Note: A&P (1) Diabetic foot infection Status: Acute Current Visit: Yes (2) Gangrene Status: Acute Current Visit: Yes (3) Renal insufficiency Status: Acute Current Visit: Yes (4) Diabetes mellitus Status: Acute Current Visit: Yes (5) Hyponatremia Status: Acute Current Visit: Yes (6) Tobacco use Status: Acute Current Visit: Yes (7) Hypokalemia Status: Acute Current Visit: Yes (8) Hypomagnesemia Status: Acute Current Visit: Yes (9) S/P BKA (below knee amputation) bilateral Status: Acute Current Visit: Yes Assessment and Plan for All Diagnoses:: POD #1 s/p bilateral BKA, doing well -- NWB BLE, PT ordered to initiate transfers -- elevate BLE on pillows while in bed -- do not remove surgical dressings; I will perform first dressing change in 2-3 days -- lovenox ok to be restarted tonight if needed, otherwise recommend restarting tomorrow morning -- continue IV antibiotics; recommend rechecking CRP next week and continuing antibiotics until CRP normalizes (may switch to oral at discretion of primary) -- will continue to follow closely
--- NOTE | 2018-03-13 08:56 | Progress Note ---
Internal Medicine - PN: Subj *Date: 03/13/18 *Time: 08:00 Interval history: doing better and will get oob today Exam Vital signs and Labs for Last 24 Hours: Temp Pulse Resp BP Pulse Ox 97.8 F 101 H 20 102/56 L 91 L 03/13/18 08:00 03/13/18 08:00 03/13/18 08:00 03/13/18 08:00 03/13/18 08:00 Laboratory Results - last 24 hr 03/12/18 11:10: POC Glucose 272 H 03/12/18 16:45: POC Glucose 246 H 03/12/18 21:24: POC Glucose 219 H 03/13/18 05:20: POC Glucose 119 H I & O for Last 24 hours: Intake & Output 03/10/18 03/11/18 03/12/18 03/13/18 11:59 11:59 11:59 11:59 Intake Total 2427 / 2427 1221.667 / 2296.549 7873 / 2230 1141 / 1141 Output Total 550 / 550 700 / 700 1999 Balance 2427 / 2427 671.667 / 634.260 3022 / 1530 -859 / -859 Weight 147 lb 2.995 oz 157 lb 9 oz 154 lb 7 oz Assessment and Plan (1) Diabetic foot infection Current visit: Yes Status: Acute Category: Medical Code(s): E11.628 - Type 2 diabetes mellitus with other skin complications; L08.9 - Local infection of the skin and subcutaneous tissue, unspecified (2) Gangrene Current visit: Yes Status: Acute Category: Medical Code(s): I96 - Gangrene, not elsewhere classified (3) Renal insufficiency Current visit: Yes Status: Acute Category: Medical Code(s): N28.9 - Disorder of kidney and ureter, unspecified (4) Diabetes mellitus Current visit: Yes Status: Acute Qualifiers: Diabetes mellitus type: type 2 Diabetes mellitus mcc insulin use: uns pecified mcc insulin use status Diabetes mellitus complication status: with unspecified complications Qualified Code(s): E11.8 - Type 2 diabetes mellitus with unspecified complications Category: Medical Code(s): E11.9 - Type 2 diabetes mellitus without complications (5) Hyponatremia Current visit: Yes Status: Acute Category: Medical Code(s): E87.1 - Hypo-osmolality and hyponatremia (6) Tobacco use Current visit: Yes Status: Acute Category: Medical Code(s): Z72.0 - Tobacco use (7) Hypokalemia Current visit: Yes Status: Acute Category: Medical Code(s): E87.6 - Hypokalemia (8) Hypomagnesemia Current visit: Yes Status: Acute Category: Medical Code(s): E83.42 - Hypomagnesemia (9) S/P BKA (below knee amputation) bilateral Start date: 03/11/18 Current visit: Yes Status: Acute Category: Surgical Code(s): Z89.512 - Acquired absence of left leg below knee; Z89.511 - Acquired absence of right leg below knee
[2018-03-13 09:53] LABS: Basophils % 0.2 % (0.1-2.0); Eosinophils # 0.2 K/mm3 (0.0-0.4); Eosinophils % 1.1 % (0.1-12.0); Hematocrit 30.1 % (37.0-47.0); Hemoglobin 9.4 g/dL (12.2-16.2); Lymphocytes # 0.9 K/mm3 (0.7-4.5); Lymphocytes % 5.8 % (10-50); Mean Corpuscular HGB Conc 31.1 g/dL (31.8-35.4); Mean Corpuscular Hemoglobin 31.8 pg (27.0-31.2); Mean Corpuscular Volume 102.2 fl (81-99); Mean Platelet Volume 6.7 fl (7.4-10.4); Monocytes # 0.7 K/mm3 (0.1-1.0); Monocytes % 4.2 % (1.7-9.3); Neutrophils # 13.6 K/mm3 (1.8-7.8); Neutrophils % 88.6 % (37.0-80.0); Platelet Count 375 K/mm3 (142-424); Red Blood Count 2.94 M/mm3 (4.20-5.40); Red Cell Distribution Width 16.5 % (11.5-17.5); White Blood Count 15.3 K/mm3 (4.8-10.8)
[2018-03-13 10:01] LABS: Calcium 6.9 mg/dL (8.5-10.1)
[2018-03-13 10:36] LABS: Lymphocytes % 4 % (10-50); Monocytes % 2 % (2-9); Neutrophils % 94 % (42-76); Total Cells Counted 100
[2018-03-13 10:37] LABS: Anisocytosis 1+; Macrocytosis 1+; Stomatocytes 1+
--- NOTE | 2018-03-13 12:51 | Progress Note ---
Subjective Date: 03/13/18 Time: 12:30 Principal diagnosis: s/p bilateral BKA Interval history: The patient has remained afebrile, but BP has been low (systolic 80's-90's). WBC increased from 10 yesterday to 15 today, with decreased O2 sat and increased O2 need. Sats are around 91% on 3L O2 via NC this morning. Mild tachycardia to 101- 103. Tmax 98.4. Patient denies chest pain or shortness of breath, but still having difficulty coughing. Has declined PT or getting out of bed with nursing. PN: Obj Ex Vital signs: Temp Pulse Resp BP Pulse Ox 98.2 F 93 H 20 105/59 L 89 L 03/13/18 12:00 03/13/18 12:00 03/13/18 12:00 03/13/18 12:00 03/13/18 12:00 - Constitutional no acute distress, chronically ill appearing - Routine HEENT Exam Head: Present: normocephalic, atraumatic Eye: Present: EOMI ENT: Present: mucous membranes moist - Routine Respiratory Exam Present: decreased breath sounds, wheezes, diminished air movement. Absent: accessory muscle use, respiratory distress - Routine Cardiovascular Exam Present: tachycardia. Absent: irregular rhythm - Routine Abdominal Exam Present: soft. Absent: tenderness - Routine Extremities Exam Comments: bilateral BKA surgical dressings c/d/i, no strikethrough patient declining PT, does not want to transfer to chair lungs with decreased breath sounds, slight wheezing R side but no crackles deep inspiration causes coughing, which is weak w/o expectorate patient on tele, regular rhythm, HR around 100 consistently O2 sats hovering around 90, occasionally dropping to high 80's mcnair anchored, clear yellow urine w/o odor - Routine Psychiatric Exam Absent: normal affect - Urinary Catheter Management Mcnair Cath placed during this visit: yes Urethral indwelling: Yes Reason for continuing: Decision to DC catheter (will d/c mcnair today) Insertion date: 03/11/18 Insertion time: 13:00 Progress Note: A&P (1) Diabetic foot infection Status: Acute Current Visit: Yes (2) Gangrene Status: Acute Current Visit: Yes (3) Renal insufficiency Status: Acute Current Visit: Yes (4) Diabetes mellitus Status: Acute Current Visit: Yes (5) Hyponatremia Status: Acute Current Visit: Yes (6) Tobacco use Status: Acute Current Visit: Yes (7) Hypokalemia Status: Acute Current Visit: Yes (8) Hypomagnesemia Status: Acute Current Visit: Yes (9) S/P BKA (below knee amputation) bilateral Status: Acute Current Visit: Yes Assessment and Plan for All Diagnoses:: 62yo F POD #2 s/p bilateral BKA for non-healing diabetic ulcers/gangrene -- continue to attempt PT, encourage patient to get into chair -- will change dressings tomorrow -- restart lovenox today; 40mg SQ daily -- d/c mcnair, send U/A -- chest XR to evaluate for worsening pneumonia -- continue IV antibiotics per current regimen -- pain control, encourage incentive spirometry
[2018-03-13 12:57] LABS: Microscopic, Urine URINE MICROSCOPIC (MICROSCOPIC)
[2018-03-13 12:58] LABS: Appearance,Urine CLEAR (Clear); Bilirubin,Urine Negative (Negative); Blood, Urine 2+ (Negative); Color,Urine YELLOW (Yellow); Glucose,Urine (UA) 1+ (Negative); Ketones,Urine Negative (Negative); Leukocyte Esterase,Urine Negative (Negative); Protein,Urine Negative (Negative); Urobilinogen,Urine 0.2 EU/dl (0.2)
[2018-03-13 13:39] LABS: Bacteria,Urine Trace /lpf
[2018-03-14 06:36] LABS: Basophils % 0.2 % (0.1-2.0); Eosinophils # 0.1 K/mm3 (0.0-0.4); Eosinophils % 0.4 % (0.1-12.0); Hematocrit 29.2 % (37.0-47.0); Hemoglobin 9.2 g/dL (12.2-16.2); Lymphocytes # 1.1 K/mm3 (0.7-4.5); Lymphocytes % 6.5 % (10-50); Mean Corpuscular HGB Conc 31.6 g/dL (31.8-35.4); Mean Corpuscular Hemoglobin 32.4 pg (27.0-31.2); Mean Corpuscular Volume 102.5 fl (81-99); Mean Platelet Volume 6.6 fl (7.4-10.4); Monocytes # 0.7 K/mm3 (0.1-1.0); Monocytes % 4.6 % (1.7-9.3); Neutrophils # 14.3 K/mm3 (1.8-7.8); Neutrophils % 88.3 % (37.0-80.0); Platelet Count 339 K/mm3 (142-424); Red Blood Count 2.85 M/mm3 (4.20-5.40); Red Cell Distribution Width 16.5 % (11.5-17.5); White Blood Count 16.2 K/mm3 (4.8-10.8)
[2018-03-14 06:49] LABS: Anion Gap 6.5 mEq/L (5-15); Blood Urea Nitrogen 10 mg/dL (7-18); Calcium 7.1 mg/dL (8.5-10.1); Chloride 94 mmol/L (98-107); Glucose 133 mg/dL (74-106); Potassium 3.5 mmoL/L (3.5-5.1); Sodium 138 mmol/L (136-145)
[2018-03-14 06:50] LABS: Carbon Dioxide 41 mmol/L (21.0-32.0)
[2018-03-14 07:44] LABS: Lymphocytes % 6 % (10-50); Monocytes % 3 % (2-9); Neutrophils % 91 % (42-76); Total Cells Counted 100
[2018-03-14 07:45] LABS: Macrocytosis 1+; Stomatocytes 1+
--- NOTE | 2018-03-14 09:11 | Progress Note ---
Internal Medicine - PN: Subj *Date: 03/14/18 *Time: 09:08 Exam Vital signs and Labs for Last 24 Hours: Temp Pulse Resp BP Pulse Ox 97.9 F 112 H 18 97/49 L 87 L 03/14/18 08:00 03/14/18 08:00 03/14/18 08:00 03/14/18 08:00 03/14/18 08:00 Laboratory Results - last 24 hr 03/13/18 09:37: WBC 15.3 H D, RBC 2.94 L, Hgb 9.4 L, Hct 30.1 L, MCV 102.2 H, MCH 31.8 H, MCHC 31.1 L, RDW 16.5, Plt Count 375, MPV 6.7 L, Neut % (Auto) 88.6 H, Lymph % (Auto) 5.8 L, [place] % (Auto) 4.2, Eos % (Auto) 1.1, Baso % (Auto) 0.2, Neut # (Auto) 13.6 H, Lymph # (Auto) 0.9, [place] # (Auto) 0.7, Eos # (Auto) 0.2, Baso # (Auto) 0.0, Total Counted 100, Neutrophils % (Manual) 94 H, Lymphocytes % (Manual) 4 L, Monocytes % (Manual) 2, Platelet Estimate Normal, Anisocytosis 1+, Macrocytosis 1+, Stomatocytes 1+ 03/13/18 09:37: Sodium 136, Potassium 3.0 L, Chloride 95 L, Carbon Dioxide 42 H* , Anion Gap 2.0 L, BUN 6 L, Creatinine 0.42 L, Estimated Creat Clear 63, Estimated GFR 152, Est GFR ( Amer) 184, Glucose 207 H, Calcium 6.9 L 03/13/18 11:16: POC Glucose 199 H 03/13/18 12:55: Urine Color Yellow, Urine Appearance Clear, Urine pH 6.0, Ur Specific [place] 1.010, Urine Protein Negative, Urine Glucose (UA) 1+, Urine Ketones Negative, Urine Blood 2+, Urine Nitrate Negative, Urine Bilirubin Negative, Urine Urobilinogen 0.2, Ur Leukocyte Esterase Negative, Urine RBC 5- 10, Urine WBC 3-5, Ur Squamous Epith Cells None, Urine Bacteria Trace 03/13/18 16:07: POC Glucose 285 H 03/13/18 20:20: POC Glucose 143 H 03/14/18 05:34: POC Glucose 134 H 03/14/18 06:20: WBC 16.2 H, RBC 2.85 L, Hgb 9.2 L, Hct 29.2 L, MCV 102.5 H, MCH 32.4 H, MCHC 31.6 L, RDW 16.5, Plt Count 339, MPV 6.6 L, Neut % (Auto) 88.3 H, Lymph % (Auto) 6.5 L, [place] % (Auto) 4.6, Eos % (Auto) 0.4, Baso % (Auto) 0.2, Neut # (Auto) 14.3 H, Lymph # (Auto) 1.1, [place] # (Auto) 0.7, Eos # (Auto) 0.1, Baso # (Auto) 0.0, Total Counted 100, Neutrophils % (Manual) 91 H, Lymphocytes % (Manual) 6 L, Monocytes % (Manual) 3, Platelet Estimate Normal, RBC Morphology Not Reportable, Macrocytosis 1+, Stomatocytes 1+ 03/14/18 06:20: Sodium 138, Potassium 3.5, Chloride 94 L, Carbon Dioxide 41 H*, Anion Gap 6.5, BUN 10 D, Creatinine 0.46 L, Estimated Creat Clear 62, Estimated GFR 137, Est GFR ( Amer) 165, Glucose 133 H D, Calcium 7.1 L, Troponin I < 0.02 03/14/18 06:20: B-Natriuretic Peptide 394 H I & O for Last 24 hours: Intake & Output 03/11/18 03/12/18 03/13/18 03/14/18 11:59 11:59 11:59 11:59 Intake Total 1221.667 / 6156.766 8291 / 2230 1291 / 1291 843 / 843 Output Total 550 / 550 700 / 700 2000 / 2000 1200 / 1200 Balance 671.667 / 912.010 9301 / 1530 -709 / -709 -357 / -357 Weight 157 lb 9 oz 154 lb 7 oz 152 lb 8 oz - *Routine HEENT Exam Head: Present: normocephalic Eye: Present: PERRL ENT: Present: mucous membranes moist - *Routine Neck Exam Present: supple. Absent: lymphadenopathy - *Routine Respiratory Exam Present: rhonchi, wheezes, diminished air movement - *Routine Cardiovascular Exam Present: RRR - *Routine Abdominal Exam Present: soft, normoactive bowel sounds. Absent: tenderness - *Routine Extremities Exam Present: amputation. Absent: cyanosis, clubbing, edema Comments: dressing to dayday lower ext - *Routine Skin Exam Present: warm. Absent: rash Comments: abrasion/sheer to lower back just above buttocks - *Routine Neurological Exam Present: alert, oriented X3 - Detailed Skin Exam bilateral back Body image: 1 - abrasion/sheer area Assessment and Plan (1) Diabetic foot infection Current visit: Yes Status: Acute Category: Medical Code(s): E11.628 - Type 2 diabetes mellitus with other skin complications; L08.9 - Local infection of the skin and subcutaneous tissue, unspecified (2) Gangrene Current visit: Yes Status: Acute Category: Medical Code(s): I96 - Gangrene, not elsewhere classified (3) Renal insufficiency Current visit: Yes Status: Acute Category: Medical Code(s): N28.9 - Disorder of kidney and ureter, unspecified (4) Diabetes mellitus Current visit: Yes Status: Acute Qualifiers: Diabetes mellitus type: type 2 Diabetes mellitus longterm insulin use: unspecified terminal clerk insulin 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 (7) Hypokalemia Current visit: Yes Status: Acute Category: Medical Code(s): E87.6 - Hypokalemia (8) Hypomagnesemia Current visit: Yes Status: Acute Category: Medical Code(s): E83.42 - Hypomagnesemia (9) S/P BKA (below knee amputation) bilateral Start date: 03/11/18 Current visit: Yes Status: Acute Category: Surgical Code(s): Z89.512 - Acquired absence of left leg below knee; Z89.511 - Acquired absence of right leg below knee - Assessment and plan all Dx Assessment and Plan for all problems:: rounded with destiny all orders per destiny echo Lasix nebs replace Goss to monitor output from Lasix
[2018-03-14 12:53] LABS: Microscopic, Urine URINE MICROSCOPIC (MICROSCOPIC)
[2018-03-14 14:14] LABS: Appearance,Urine SL CLOUDY (Clear); Bilirubin,Urine Negative (Negative); Blood, Urine 1+ (Negative); Color,Urine YELLOW (Yellow); Glucose,Urine (UA) 1+ (Negative); Ketones,Urine 1+ (Negative); Leukocyte Esterase,Urine Negative (Negative); Protein,Urine 1+ (Negative); Urobilinogen,Urine 0.2 EU/dl (0.2)
--- NOTE | 2018-03-14 14:25 | Progress Note ---
Subjective Date: 03/14/18 Time: 12:30 Principal diagnosis: s/p bilateral BKA Interval history: Since yesterday, the patient is stable but WBC is 16.2 and she has been on 3-4L O2 via NC. Having a more difficult time breathing today and she says she feels short of breath. She has refused to get out of bed or participate in therapy. PN: Obj Ex Vital signs: Temp Pulse Resp BP Pulse Ox 97.9 F 110 H 20 120/63 90 L 03/14/18 08:00 03/14/18 12:00 03/14/18 10:00 03/14/18 10:00 03/14/18 11:04 - Constitutional chronically ill appearing Comments: tachypneic around 30 during exam, using accessory muscles for respiration - Routine HEENT Exam Head: Present: normocephalic Eye: Present: EOMI - Routine Respiratory Exam Present: accessory muscle use, decreased breath sounds, diminished air movement. Absent: wheezes - Routine Cardiovascular Exam Present: tachycardia - Routine Abdominal Exam Present: soft - Routine Extremities Exam Comments: bilateral BKA stump dressings changed today; no strikethrough on dressings small amount of drainage on deeper dressings incisions intact on bilateral BKA stumps, sutures intact bilateral skin flaps dusky; no sb necrosis no purulent drainage or foul odor distal stump appears slightly congested incisions tender to touch - Urinary Catheter Management Mcnair Cath placed during this visit: yes Urethral indwelling: Yes Reason for continuing: Measure accurate output Insertion date: 03/14/18 Insertion time: 09:10 Progress Note: A&P (1) Diabetic foot infection Status: Acute Current Visit: Yes (2) Gangrene Status: Acute Current Visit: Yes (3) Renal insufficiency Status: Acute Current Visit: Yes (4) Diabetes mellitus Status: Acute Current Visit: Yes (5) Hyponatremia Status: Acute Current Visit: Yes (6) Tobacco use Status: Acute Current Visit: Yes (7) Hypokalemia Status: Acute Current Visit: Yes (8) Hypomagnesemia Status: Acute Current Visit: Yes (9) S/P BKA (below knee amputation) bilateral Status: Acute Current Visit: Yes Assessment and Plan for All Diagnoses:: 62yo F POD #3 s/p bilateral BKA for 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 Also with bilateral pneumonia, L >R. -- BKA stumps still appear viable, but wound margins dusky and I fear they may necrose. I do not believe they are infected, as the tissue appeared healthy at surgery and there is no purulent drainage. Her tissue, especially the skin, was extremely friable at surgery and there was difficulty getting it to hold sutures. Her blood flow to the limbs was sufficient on angiogram, but her overall health status is poor. Her albumin was 1.3, she's diabetic and a heavy smoker; her tissue healing capability is likely poor to begin with. I would like to work on her incisions with the aid of wound care and see if we can't improve them; with time, the skin flaps will demarcate and declare themselves if they are going to necrose. -- continue medical management per primary; lasix ordered, mcnair replaced for accurate I/O and nebs being given to help breathing. U/A yesterday was not suspicious for UTI. -- will continue to follow closely
[2018-03-14 15:25] LABS: Amorphous Sediment,Urine 1+ /lpf; Bacteria,Urine 2+ /lpf; RBC,Urine Occasional #/hpf (0-3); Squamous Epithelial Cell,Urine Occasional #/hpf (0-5)
[2018-03-14 15:31] LABS: Basophils % 0.2 % (0.1-2.0); Eosinophils # 0.1 K/mm3 (0.0-0.4); Eosinophils % 0.3 % (0.1-12.0); Hematocrit 31.7 % (37.0-47.0); Hemoglobin 9.6 g/dL (12.2-16.2); Lymphocytes # 1.1 K/mm3 (0.7-4.5); Lymphocytes % 5.3 % (10-50); Mean Corpuscular HGB Conc 30.4 g/dL (31.8-35.4); Mean Corpuscular Hemoglobin 31.6 pg (27.0-31.2); Mean Corpuscular Volume 104.2 fl (81-99); Mean Platelet Volume 6.7 fl (7.4-10.4); Monocytes # 0.6 K/mm3 (0.1-1.0); Neutrophils # 19.4 K/mm3 (1.8-7.8); Neutrophils % 91.3 % (37.0-80.0); Platelet Count 367 K/mm3 (142-424); Red Blood Count 3.04 M/mm3 (4.20-5.40); Red Cell Distribution Width 16.5 % (11.5-17.5); White Blood Count 21.2 K/mm3 (4.8-10.8)
[2018-03-14 15:36] LABS: ABG Oxygen Saturation 55 % (90-100); ABG PH 7.39 mmol/L (7.35-7.45); ABG TCO2 49.5 mmhg (23-27)
[2018-03-14 15:53] LABS: Alanine Aminotransferase 63 U/L (12-78); Albumin/Globulin Ratio 0.2 (1.1-1.8); Alkaline Phosphatase 146 U/L (46-116); Anion Gap 10.4 mEq/L (5-15); Aspartate Amino Transferase 52 U/L (15-37); Bilirubin,Total 0.2 mg/dL (0.2-1.0); Blood Urea Nitrogen 11 mg/dL (7-18); Calcium 7.1 mg/dL (8.5-10.1); Chloride 90 mmol/L (98-107); Creatine Kinase 479 U/L (26-192); Globulin 4.9 gm/dl (1.3-3.2); Glucose 241 mg/dL (74-106); Potassium 3.4 mmoL/L (3.5-5.1); Sodium 138 mmol/L (136-145); Total Protein,Serum 5.9 gm/dL (6.4-8.2)
[2018-03-14 15:55] LABS: Carbon Dioxide 41 mmol/L (21.0-32.0)
[2018-03-14 15:55] LABS: Allen's Test Patient Unable; Oxygen 32% %
[2018-03-14 15:56] LABS: ABG PCO2 79.8 mmhg (35.0-45.0); ABG PO2 29.7 mmhg (80-100)
[2018-03-14 16:13] LABS: Lymphocytes % 4 % (10-50); Monocytes % 4 % (2-9); Neutrophils % 92 % (42-76); Total Cells Counted 100
--- NOTE | 2018-03-14 16:17 | Progress Note ---
Subjective Date: 03/14/18 Time: 16:14 Principal diagnosis: s/p bilateral BKA Interval history: 62-year-old white female with recent bilateral BKA due to gangrenous feet now with sinus tachycardia in the 130s-140 bpm range. Cardiology asked to see the patient again for evaluation and treatment. Patient has had an echocardiogram this admission showing ejection fraction of 55%. Patient seems to have experienced a gradual increase in heart rate with an increase in shortness of breath and a decline in her condition over the last couple of days. Blood gas noted with normal pH but hypoxia noted. Exam Vital signs and Labs for Last 24 Hours: Temp Pulse Resp BP Pulse Ox 98.3 F 135 H 22 127/64 98 03/14/18 15:35 03/14/18 14:00 03/14/18 14:00 03/14/18 14:00 03/14/18 14:00 Laboratory Results - last 24 hr 03/13/18 16:07: POC Glucose 285 H 03/13/18 20:20: POC Glucose 143 H 03/14/18 05:34: POC Glucose 134 H 03/14/18 06:20: WBC 16.2 H, RBC 2.85 L, Hgb 9.2 L, Hct 29.2 L, MCV 102.5 H, MCH 32.4 H, MCHC 31.6 L, RDW 16.5, Plt Count 339, MPV 6.6 L, Neut % (Auto) 88.3 H, Lymph % (Auto) 6.5 L, [place] % (Auto) 4.6, Eos % (Auto) 0.4, Baso % (Auto) 0.2, Neut # (Auto) 14.3 H, Lymph # (Auto) 1.1, [place] # (Auto) 0.7, Eos # (Auto) 0.1, Baso # (Auto) 0.0, Total Counted 100, Neutrophils % (Manual) 91 H, Lymphocytes % (Manual) 6 L, Monocytes % (Manual) 3, Platelet Estimate Normal, RBC Morphology Not Reportable, Macrocytosis 1+, Stomatocytes 1+ 03/14/18 06:20: Sodium 138, Potassium 3.5, Chloride 94 L, Carbon Dioxide 41 H*, Anion Gap 6.5, BUN 10 D, Creatinine 0.46 L, Estimated Creat Clear 62, Estimated GFR 137, Est GFR ( Amer) 165, Glucose 133 H D, Calcium 7.1 L, Troponin I < 0.02 03/14/18 06:20: B-Natriuretic Peptide 394 H 03/14/18 09:10: Urine Color Yellow, Urine Appearance Sl cloudy, Urine pH 7.0, Ur Specific [place] 1.020, Urine Protein 1+, Urine Glucose (UA) 1+, Urine Ketones 1+, Urine Blood 1+, Urine Nitrate Negative, Urine Bilirubin Negative, Urine Urobilinogen 0.2, Ur Leukocyte Esterase Negative, Urine RBC Occasional, Urine WBC 5-10, Ur Squamous Epith Cells Occasional, Amorphous Sediment 1+, Urine Bacteria 2+ 03/14/18 11:52: POC Glucose 248 H 03/14/18 15:05: WBC 21.2 H* D, RBC 3.04 L, Hgb 9.6 L, Hct 31.7 L, MCV 104.2 H, MCH 31.6 H, MCHC 30.4 L, RDW 16.5, Plt Count 367, MPV 6.7 L, Neut % (Auto) 91.3 H, Lymph % (Auto) 5.3 L, [place] % (Auto) 3.0, Eos % (Auto) 0.3, Baso % (Auto) 0.2, Neut # (Auto) 19.4 H, Lymph # (Auto) 1.1, [place] # (Auto) 0.6, Eos # (Auto) 0.1, Baso # (Auto) 0.0, Total Counted 100, Neutrophils % (Manual) 92 H, Lymphocytes % (Manual) 4 L, Monocytes % (Manual) 4, Platelet Estimate Normal 03/14/18 15:05: Sodium 138, Potassium 3.4 L, Chloride 90 L, Carbon Dioxide 41 H* , Anion Gap 10.4, BUN 11, Creatinine 0.63 D, Estimated Creat Clear 62, Estimated GFR 95, Est GFR ( Amer) 115 D, Glucose 241 H D, Calcium 7.1 L, Total Bilirubin 0.2, AST 52 H, ALT 63, Alkaline Phosphatase 146 H, Total Creatine Kinase 479 H, CK-MB (CK-2) 1.1 D, CK-MB (CK-2) Rel Index 0.2, Troponin I < 0.02, Total Protein 5.9 L, Albumin 1.0 L, Globulin 4.9 H, Albumin/Globulin Ratio 0.2 L 03/14/18 15:33: Specimen Source Left radial, O2 % 32%, ABG pH 7.39, ABG pCO2 79.8 H, ABG pO2 29.7 L, ABG HCO3 47.0 H, ABG Total CO2 49.5 H, ABG O2 Saturation 55 L*, ABG Base Excess 22.0 H, Rikki Test Patient unable I & O for Last 24 hours: Intake & Output 03/12/18 03/13/18 03/14/18 03/15/18 11:59 11:59 11:59 11:59 Intake Total 2230 / 2230 1291 / 1291 993 / 993 240 / 240 Output Total 700 / 700 2000 / 2000 1200 / 1200 1800 / 1800 Balance 1530 / 1530 -709 / -709 -207 / -207 -1560 / -1560 Weight 157 lb 9 oz 154 lb 7 oz 152 lb 8 oz - *Routine Respiratory Exam Present: decreased breath sounds, rhonchi, diminished air movement. Absent: accessory muscle use, rales, wheezes - *Routine Cardiovascular Exam Present: tachycardia. Absent: murmur, gallop, rubs - *Routine Neurological Exam Present: alert, moving all extremities Progress Note: A&P (1) Diabetic foot infection Status: Acute Current Visit: Yes (2) Gangrene Status: Acute Current Visit: Yes (3) Renal insufficiency Status: Acute Current Visit: Yes (4) Diabetes mellitus Status: Acute Current Visit: Yes (5) Hyponatremia Status: Acute Current Visit: Yes (6) Tobacco use Status: Acute Current Visit: Yes (7) Hypokalemia Status: Acute Current Visit: Yes (8) Hypomagnesemia Status: Acute Current Visit: Yes (9) S/P BKA (below knee amputation) bilateral Status: Acute Current Visit: Yes (10) Sinus tachycardia Status: Acute Current Visit: Yes Assessment and Plan for All Diagnoses:: 1. Patient appears to have a sinus tachycardia driven by respiratory compromise. 2. We will give digoxin 0.5 mg IV x1. Do not think that the patient's heart rate will respond with this nor do I believe that beta blockers or calcium channel blockers will add significant rate control as this is driven by pulmonary compromise. 3. Patient has been intolerant of low doses of Lasix with hypokalemia and hy pomagnesemia. 4. Poor prognosis. 5. Patient is a DNR.
[2018-03-15 06:21] LABS: Basophils % 0.1 % (0.1-2.0); Eosinophils % 0.2 % (0.1-12.0); Hematocrit 30.2 % (37.0-47.0); Hemoglobin 9.2 g/dL (12.2-16.2); Lymphocytes # 0.9 K/mm3 (0.7-4.5); Lymphocytes % 4.5 % (10-50); Mean Corpuscular HGB Conc 30.6 g/dL (31.8-35.4); Mean Corpuscular Hemoglobin 31.9 pg (27.0-31.2); Mean Corpuscular Volume 104.1 fl (81-99); Mean Platelet Volume 7.4 fl (7.4-10.4); Monocytes # 0.8 K/mm3 (0.1-1.0); Neutrophils # 18.9 K/mm3 (1.8-7.8); Neutrophils % 91.3 % (37.0-80.0); Platelet Count 341 K/mm3 (142-424); Red Cell Distribution Width 15.9 % (11.5-17.5); White Blood Count 20.7 K/mm3 (4.8-10.8)
[2018-03-15 06:42] LABS: Anion Gap 7.3 mEq/L (5-15); Potassium 5.3 mmoL/L (3.5-5.1)
[2018-03-15 06:44] LABS: Calcium 6.8 mg/dL (8.5-10.1)
--- NOTE | 2018-03-15 07:32 | Progress Note ---
Subjective Date: 03/15/18 Time: 07:30 Principal diagnosis: s/p bilateral BKA Interval history: 62-year-old white female in bed no acute distress. She is getting oxygen by Ventimask. Telemetry shows heart rate in the 110-120 bpm range. Patient is more alert and interactive today but still not very talkative. She denies any chest pain at the time. Exam Vital signs and Labs for Last 24 Hours: Temp Pulse Resp BP Pulse Ox 98.7 F 115 H 20 111/43 L 92 L 03/15/18 04:00 03/15/18 06:21 03/14/18 20:00 03/15/18 06:00 03/15/18 06:21 Laboratory Results - last 24 hr 03/14/18 06:20: Total Counted 100, Neutrophils % (Manual) 91 H, Lymphocytes % (Manual) 6 L, Monocytes % (Manual) 3, Platelet Estimate Normal, RBC Morphology Not Reportable, Macrocytosis 1+, Stomatocytes 1+ 03/14/18 09:10: Urine Color Yellow, Urine Appearance Sl cloudy, Urine pH 7.0, Ur Specific [place] 1.020, Urine Protein 1+, Urine Glucose (UA) 1+, Urine Ketones 1+, Urine Blood 1+, Urine Nitrate Negative, Urine Bilirubin Negative, Urine Urobilinogen 0.2, Ur Leukocyte Esterase Negative, Urine RBC Occasional, Urine WBC 5-10, Ur Squamous Epith Cells Occasional, Amorphous Sediment 1+, Urine Bacteria 2+ 03/14/18 11:52: POC Glucose 248 H 03/14/18 15:05: WBC 21.2 H* D, RBC 3.04 L, Hgb 9.6 L, Hct 31.7 L, MCV 104.2 H, MCH 31.6 H, MCHC 30.4 L, RDW 16.5, Plt Count 367, MPV 6.7 L, Neut % (Auto) 91.3 H, Lymph % (Auto) 5.3 L, [place] % (Auto) 3.0, Eos % (Auto) 0.3, Baso % (Auto) 0.2, Neut # (Auto) 19.4 H, Lymph # (Auto) 1.1, [place] # (Auto) 0.6, Eos # (Auto) 0.1, Baso # (Auto) 0.0, Total Counted 100, Neutrophils % (Manual) 92 H, Lymphocytes % (Manual) 4 L, Monocytes % (Manual) 4, Platelet Estimate Normal 03/14/18 15:05: Sodium 138, Potassium 3.4 L, Chloride 90 L, Carbon Dioxide 41 H* , Anion Gap 10.4, BUN 11, Creatinine 0.63 D, Estimated Creat Clear 62, Estimated GFR 95, Est GFR ( Amer) 115 D, Glucose 241 H D, Calcium 7.1 L, Total Bilirubin 0.2, AST 52 H, ALT 63, Alkaline Phosphatase 146 H, Total Creatine Kinase 479 H, CK-MB (CK-2) 1.1 D, CK-MB (CK-2) Rel Index 0.2, Troponin I < 0.02, Total Protein 5.9 L, Albumin 1.0 L, Globulin 4.9 H, Albumin/Globulin Ratio 0.2 L 03/14/18 15:05: Magnesium 1.0 L 03/14/18 15:33: Specimen Source Left radial, O2 % 32%, ABG pH 7.39, ABG pCO2 79.8 H, ABG pO2 29.7 L, ABG HCO3 47.0 H, ABG Total CO2 49.5 H, ABG O2 Saturation 55 L*, ABG Base Excess 22.0 H, Rikki Test Patient unable 03/14/18 20:00: POC Glucose 225 H 03/15/18 05:35: WBC 20.7 H*, RBC 2.90 L, Hgb 9.2 L, Hct 30.2 L, MCV 104.1 H, MCH 31.9 H, MCHC 30.6 L, RDW 15.9, Plt Count 341, MPV 7.4, Neut % (Auto) 91.3 H, Lymph % (Auto) 4.5 L, [place] % (Auto) 4.0, Eos % (Auto) 0.2, Baso % (Auto) 0.1, Neut # (Auto) 18.9 H, Lymph # (Auto) 0.9, [place] # (Auto) 0.8, Eos # (Auto) 0.0, Baso # (Auto) 0.0 03/15/18 05:35: Sodium 138, Potassium 5.3 H D, Chloride 94 L, Carbon Dioxide 42 H*, Anion Gap 7.3, BUN 19 H D, Creatinine 0.95 D, Estimated Creat Clear 64, Estimated GFR 59, Est GFR ( Amer) 72 D, Glucose 135 H D, Calcium 6.8 L 03/15/18 05:41: POC Glucose 150 H I & O for Last 24 hours: Intake & Output 03/12/18 03/13/18 03/14/18 03/15/18 11:59 11:59 11:59 11:59 Intake Total 2230 / 2230 1291 / 1291 993 / 993 590 / 590 Output Total 700 / 700 1999 / 1999 1200 / 1200 2049 Balance 1530 / 1530 -709 / -709 -207 / -207 -1460 / -1460 Weight 157 lb 9 oz 154 lb 7 oz 152 lb 8 oz 156 lb 8 oz - *Routine Respiratory Exam Present: CTA bilaterally, diminished air movement. Absent: accessory muscle use, rales, rhonchi, wheezes - *Routine Cardiovascular Exam Present: RRR, tachycardia. Absent: murmur, gallop, rubs Progress Note: A&P (1) Diabetic foot infection Status: Acute Current Visit: Yes (2) Gangrene Status: Acute Current Visit: Yes (3) Renal insufficiency Status: Acute Current Visit: Yes (4) Diabetes mellitus Status: Acute Current Visit: Yes (5) Hyponatremia Status: Acute Current Visit: Yes (6) Tobacco use Status: Acute Current Visit: Yes (7) Hypokalemia Status: Acute Current Visit: Yes (8) Hypomagnesemia Status: Acute Current Visit: Yes (9) S/P BKA (below knee amputation) bilateral Status: Acute Current Visit: Yes (10) Sinus tachycardia Status: Acute Current Visit: Yes Assessment and Plan for All Diagnoses:: Heart rate has improved as respiratory status has improved. Continue to monitor and treat as needed
[2018-03-15 08:45] LABS: Lymphocytes % 5 % (10-50); Monocytes % 4 % (2-9); Neutrophils % 88 % (42-76); Total Cells Counted 100
[2018-03-15 08:46] LABS: Macrocytosis 1+; Stomatocytes 1+
--- NOTE | 2018-03-15 08:50 | Progress Note ---
Internal Medicine - PN: Subj *Date: 03/15/18 *Time: 08:30 Interval history: doing some better but still on high flow o2 - will change abx - hospice to see pt again today Exam Vital signs and Labs for Last 24 Hours: Temp Pulse Resp BP Pulse Ox 98.0 F 115 H 20 111/43 L 92 L 03/15/18 08:00 03/15/18 06:21 03/14/18 20:00 03/15/18 06:00 03/15/18 06:21 Laboratory Results - last 24 hr 03/14/18 09:10: Urine Color Yellow, Urine Appearance Sl cloudy, Urine pH 7.0, Ur Specific [place] 1.020, Urine Protein 1+, Urine Glucose (UA) 1+, Urine Ketones 1+, Urine Blood 1+, Urine Nitrate Negative, Urine Bilirubin Negative, Urine Urobilinogen 0.2, Ur Leukocyte Esterase Negative, Urine RBC Occasional, Urine WBC 5-10, Ur Squamous Epith Cells Occasional, Amorphous Sediment 1+, Urine Bacteria 2+ 03/14/18 11:52: POC Glucose 248 H 03/14/18 15:05: WBC 21.2 H* D, RBC 3.04 L, Hgb 9.6 L, Hct 31.7 L, MCV 104.2 H, MCH 31.6 H, MCHC 30.4 L, RDW 16.5, Plt Count 367, MPV 6.7 L, Neut % (Auto) 91.3 H, Lymph % (Auto) 5.3 L, George % (Auto) 3.0, Eos % (Auto) 0.3, Baso % (Auto) 0.2, Neut # (Auto) 19.4 H, Lymph # (Auto) 1.1, George # (Auto) 0.6, Eos # (Auto) 0.1, Baso # (Auto) 0.0, Total Counted 100, Neutrophils % (Manual) 92 H, Lymphocytes % (Manual) 4 L, Monocytes % (Manual) 4, Platelet Estimate Normal 03/14/18 15:05: Sodium 138, Potassium 3.4 L, Chloride 90 L, Carbon Dioxide 41 H* , Anion Gap 10.4, BUN 11, Creatinine 0.63 D, Estimated Creat Clear 62, Estimated GFR 95, Est GFR ( Amer) 115 D, Glucose 241 H D, Calcium 7.1 L, Total Bilirubin 0.2, AST 52 H, ALT 63, Alkaline Phosphatase 146 H, Total Creatine Kinase 479 H, CK-MB (CK-2) 1.1 D, CK-MB (CK-2) Rel Index 0.2, Troponin I < 0.02, Total Protein 5.9 L, Albumin 1.0 L, Globulin 4.9 H, Albumin/Globulin Ratio 0.2 L 03/14/18 15:05: Magnesium 1.0 L 03/14/18 15:33: Specimen Source Left radial, O2 % 32%, ABG pH 7.39, ABG pCO2 79.8 H, ABG pO2 29.7 L, ABG HCO3 47.0 H, ABG Total CO2 49.5 H, ABG O2 Saturation 55 L*, ABG Base Excess 22.0 H, Rikki Test Patient unable 03/14/18 20:00: POC Glucose 225 H 03/15/18 05:35: WBC 20.7 H*, RBC 2.90 L, Hgb 9.2 L, Hct 30.2 L, MCV 104.1 H, MCH 31.9 H, MCHC 30.6 L, RDW 15.9, Plt Count 341, MPV 7.4, Neut % (Auto) 91.3 H, Lymph % (Auto) 4.5 L, George % (Auto) 4.0, Eos % (Auto) 0.2, Baso % (Auto) 0.1, Neut # (Auto) 18.9 H, Lymph # (Auto) 0.9, George # (Auto) 0.8, Eos # (Auto) 0.0, Baso # (Auto) 0.0, Total Counted 100, Neutrophils % (Manual) 88 H, Band Neutrophils % 3.0, Lymphocytes % (Manual) 5 L, Monocytes % (Manual) 4, Platelet Estimate Normal, Macrocytosis 1+, Stomatocytes 1+ 03/15/18 05:35: Sodium 138, Potassium 5.3 H D, Chloride 94 L, Carbon Dioxide 42 H*, Anion Gap 7.3, BUN 19 H D, Creatinine 0.95 D, Estimated Creat Clear 64, Estimated GFR 59, Est GFR ( Amer) 72 D, Glucose 135 H D, Calcium 6.8 L 03/15/18 05:41: POC Glucose 150 H I & O for Last 24 hours: Intake & Output 03/12/18 03/13/18 03/14/18 03/15/18 11:59 11:59 11:59 11:59 Intake Total 2230 / 2230 1291 / 1291 993 / 993 590 / 590 Output Total 700 / 700 1999 / 1999 1200 / 1200 2049 Balance 1530 / 1530 -709 / -709 -207 / -207 -1460 / -1460 Weight 157 lb 9 oz 154 lb 7 oz 152 lb 8 oz 156 lb 8 oz - Constitutional no acute distress - *Routine HEENT Exam Head: Present: normocephalic Eye: Present: EOMI, PERRL ENT: Present: mucous membranes dry - *Routine Neck Exam Absent: JVD - *Routine Respiratory Exam Present: decreased breath sounds - *Routine Cardiovascular Exam Present: tachycardia - *Routine Abdominal Exam Present: soft - *Routine Extremities Exam Comments: s/p amputation - *Routine Neurological Exam Present: alert, CN II-XII intact - Routine Psychiatric Exam Present: unable to assess Assessment and Plan (1) Diabetic foot infection Current visit: Yes Status: Acute Category: Medical Code(s): E11.628 - Type 2 diabetes mellitus with other skin complications; L08.9 - Local infection of the skin and subcutaneous tissue, unspecified (2) Gangrene Current visit: Yes Status: Acute Category: Medical Code(s): I96 - Gangrene, not elsewhere classified (3) Renal insufficiency Current visit: Yes Status: Acute Category: Medical Code(s): N28.9 - Disorder of kidney and ureter, unspecified (4) Diabetes mellitus Current visit: Yes Status: Acute Qualifiers: Diabetes mellitus type: type 2 Diabetes mellitus termite exterminator helper insulin use: unspecified termite exterminator helper insulin 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 (7) Hypokalemia Current visit: Yes Status: Acute Category: Medical Code(s): E87.6 - Hypokalemia (8) Hypomagnesemia Current visit: Yes Status: Acute Category: Medical Code(s): E83.42 - Hypomagnesemia (9) S/P BKA (below knee amputation) bilateral Start date: 03/11/18 Current visit: Yes Status: Acute Category: Surgical Code(s): Z89.512 - Acquired absence of left leg below knee; Z89.511 - Acquired absence of right leg below knee (10) Sinus tachycardia Current visit: Yes Status: Acute Category: Medical Code(s): R00.0 - Tachycardia, unspecified
--- NOTE | 2018-03-15 09:32 | Pharmacy Consult Notes ---
- Pharmacy Consult Date: 03/15/18 Time: 09:30 Referring provider: DR. BEACH Reason for Consult:: VANCOMYCIN DOSING Allergies and ADEs:: Allergies Allergy/AdvReac Type Severity Reaction Status Date / Time codeine Allergy Mild Verified 10/16/17 18:30 [From TYLENOL-CODEINE #3] morphine [MORPHINE] Allergy Mild Verified 10/16/17 18:30 tramadol [From ULTRAM] Allergy Mild Verified 10/16/17 18:30 amoxicillin [AMOXICILLIN] Allergy Unknown Verified 10/16/17 18:30 Home Medications:: Home Medications Medication Instructions Recorded Confirmed Type acetaminophen 500 mg tablet 500 mg PO Q6HP PRN tab 06/22/17 03/06/18 History atorvastatin 20 mg tablet 20 mg PO HS tab 06/22/17 03/06/18 History divalproex 125 mg tablet,delayed 125 mg PO HS tab 06/22/17 03/06/18 History release furosemide 20 mg tablet 20 mg PO DAILY tab 06/22/17 03/06/18 History gabapentin 600 mg tablet 600 mg PO QID tab 06/22/17 03/06/18 History hydrocodone 7.5 mg-acetaminophen 1 tab PO TID tab 06/22/17 03/06/18 History 325 mg tablet metformin 1,000 mg tablet 1,000 mg PO BID 06/22/17 03/06/18 History multivitamin with minerals tablet 1 tab-cap PO DAILY tab 06/22/17 03/06/18 History omeprazole 40 mg capsule,delayed 20 mg PO HS cap 06/22/17 03/06/18 History release tizanidine 4 mg capsule 4 mg PO TIDP PRN 06/22/17 03/06/18 History Fluconazole [Diflucan 100mg tablet] 100 mg PO DAILY 03/06/18 03/06/18 History Insulin Detemir [Levemir 100 14 unit SQ HS 03/06/18 03/06/18 History units/mL 10mL vial] Insulin Regular, Human [Humulin R 0 unit SQ BIDP PRN 03/06/18 03/06/18 History Insulin 100 Units/mL 10mL Vial] LORazepam [Ativan 0.5mg tablet] 0.25 mg PO BID 03/06/18 03/06/18 History Loperamide HCl [Imodium 2 mg 2 mg PO QIDP PRN 03/06/18 03/06/18 History capsule] Loratadine [Claritin 10mg Tablet] 10 mg PO DAILY 03/06/18 03/06/18 History Mag Carb/Aluminum Hydrox/Algin 30 ml PO QIDP PRN 03/06/18 03/06/18 History [Gaviscon Liquid] Phenol [Chloraseptic] 1 spray MM BIDP PRN 03/06/18 03/06/18 History Sertraline HCl [Zoloft 100mg 100 mg PO DAILY 03/06/18 03/06/18 History tablet] guaiFENesin [Robafen] 10 ml PO Q4HP PRN 03/06/18 03/06/18 History Height: 1.6 m Weight: 70.987 kg Laboratory Results:: Laboratory Results - last 24 hr 03/14/18 09:10: Urine Color Yellow, Urine Appearance Sl cloudy, Urine pH 7.0, Ur Specific [place] 1.020, Urine Protein 1+, Urine Glucose (UA) 1+, Urine Ketones 1+, Urine Blood 1+, Urine Nitrate Negative, Urine Bilirubin Negative, Urine Urobilinogen 0.2, Ur Leukocyte Esterase Negative, Urine RBC Occasional, Urine WBC 5-10, Ur Squamous Epith Cells Occasional, Amorphous Sediment 1+, Urine Bacteria 2+ 03/14/18 11:52: POC Glucose 248 H 03/14/18 15:05: WBC 21.2 H* D, RBC 3.04 L, Hgb 9.6 L, Hct 31.7 L, MCV 104.2 H, MCH 31.6 H, MCHC 30.4 L, RDW 16.5, Plt Count 367, MPV 6.7 L, Neut % (Auto) 91.3 H, Lymph % (Auto) 5.3 L, [place] % (Auto) 3.0, Eos % (Auto) 0.3, Baso % (Auto) 0.2, Neut # (Auto) 19.4 H, Lymph # (Auto) 1.1, [place] # (Auto) 0.6, Eos # (Auto) 0.1, Baso # (Auto) 0.0, Total Counted 100, Neutrophils % (Manual) 92 H, Lymphocytes % (Manual) 4 L, Monocytes % (Manual) 4, Platelet Estimate Normal 03/14/18 15:05: Sodium 138, Potassium 3.4 L, Chloride 90 L, Carbon Dioxide 41 H* , Anion Gap 10.4, BUN 11, Creatinine 0.63 D, Estimated Creat Clear 62, Estimated GFR 95, Est GFR ( Amer) 115 D, Glucose 241 H D, Calcium 7.1 L, Total Bilirubin 0.2, AST 52 H, ALT 63, Alkaline Phosphatase 146 H, Total Creatine Kinase 479 H, CK-MB (CK-2) 1.1 D, CK-MB (CK-2) Rel Index 0.2, Troponin I < 0.02, Total Protein 5.9 L, Albumin 1.0 L, Globulin 4.9 H, Albumin/Globulin Ratio 0.2 L 03/14/18 15:05: Magnesium 1.0 L 03/14/18 15:33: Specimen Source Left radial, O2 % 32%, ABG pH 7.39, ABG pCO2 79.8 H, ABG pO2 29.7 L, ABG HCO3 47.0 H, ABG Total CO2 49.5 H, ABG O2 Saturation 55 L*, ABG Base Excess 22.0 H, Rikki Test Patient unable 03/14/18 20:00: POC Glucose 225 H 03/15/18 05:35: WBC 20.7 H*, RBC 2.90 L, Hgb 9.2 L, Hct 30.2 L, MCV 104.1 H, MCH 31.9 H, MCHC 30.6 L, RDW 15.9, Plt Count 341, MPV 7.4, Neut % (Auto) 91.3 H, Lymph % (Auto) 4.5 L, [place] % (Auto) 4.0, Eos % (Auto) 0.2, Baso % (Auto) 0.1, Neut # (Auto) 18.9 H, Lymph # (Auto) 0.9, [place] # (Auto) 0.8, Eos # (Auto) 0.0, Baso # (Auto) 0.0, Total Counted 100, Neutrophils % (Manual) 88 H, Band Neutrophils % 3.0, Lymphocytes % (Manual) 5 L, Monocytes % (Manual) 4, Platelet Estimate Normal, Macrocytosis 1+, Stomatocytes 1+ 03/15/18 05:35: Sodium 138, Potassium 5.3 H D, Chloride 94 L, Carbon Dioxide 42 H*, Anion Gap 7.3, BUN 19 H D, Creatinine 0.95 D, Estimated Creat Clear 64, Estimated GFR 59, Est GFR ( Amer) 72 D, Glucose 135 H D, Calcium 6.8 L 03/15/18 05:41: POC Glucose 150 H Medical History: Reports:: Diabetes Mellitus Type 2, Gastroesophageal Reflux Disease(GERD), Hyperlipidemia, MRSA, Seizures Denies:: Cancer, Diabetes Mellitus Type 1 Assessment and Plan (1) Diabetic foot infection Current visit: Yes Status: Acute Category: Medical Code(s): E11.628 - Type 2 diabetes mellitus with other skin complications; L08.9 - Local infection of the skin and subcutaneous tissue, unspecified (2) Gangrene Current visit: Yes Status: Acute Category: Medical Code(s): I96 - Gangrene, not elsewhere classified (3) Renal insufficiency Current visit: Yes Status: Acute Category: Medical Code(s): N28.9 - Disorder of kidney and ureter, unspecified (4) Diabetes mellitus Current visit: Yes Status: Acute Qualifiers: Diabetes mellitus type: type 2 Diabetes mellitus mcfp insulin use: unspecified 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 Diabetes mellitus complication status: with unspecified complications Qualified Code(s): E11.8 - Type 2 diabetes mellitus with unspecified complications Category: Medical Code(s): E11.9 - Type 2 diabetes mellitus without complications (5) Hyponatremia Current visit: Yes Status: Acute Category: Medical Code(s): E87.1 - Hypo- osmolality and hyponatremia (6) Tobacco use Current visit: Yes Status: Acute Category: Medical Code(s): Z72.0 - Toba personal lines account executive use (7) Hypokalemia Current visit: Yes Status: Acute Category: Medical Code(s): E87.6 - Hypokalemia (8) Hypomagnesemia Current visit: Yes Status: Acute Category: Medical Code(s): E83.42 - Hypomagnesemia (9) S/P BKA (below knee amputation) bilateral Start date: 03/11/18 Current visit: Yes Status: Acute Category: Surgical Code(s): Z89.512 - Acquired absence of left leg below knee; Z89.511 - Acquired absence of right leg below knee (10) Sinus tachycardia Current visit: Yes Status: Acute Category: Medical Code(s): R00.0 - Tachycardia, unspecified - Assessment and plan all Dx Assessment and Plan for all problems:: BASED ON PATIENT'S FACTORS, RECOMMEND STARTING WITH VANCOMYCIN 1250 MG Q24H AT THIS TIME. PHARMACY WILL FOLLOW DAILY AND ADJUST APPROPRIATE. [address] [facility], JULIAD
--- NOTE | 2018-03-15 17:03 | Progress Note ---
Subjective Date: 03/15/18 Time: 03:30 Principal diagnosis: s/p bilateral BKA Interval history: The patient has declined significantly in the last 24 hours. Her oxygen demands have increased along with her white blood cell count, but vitals have been stable. Blood pressure has been low and she has been tachycardic but she has maintained this for the last 24 hours. She is elected to enter hospice care at this time. PN: Obj Ex Vital signs: Temp Pulse Resp BP Pulse Ox 98.0 F 118 H 26 H 108/53 L 94 L 03/15/18 08:00 03/15/18 08:00 03/15/18 08:00 03/15/18 08:00 03/15/18 08:00 - Routine Extremities Exam Comments: Surgical dressings on BKA stumps were changed yesterday were very painful for the patient so they were not removed today. Dressings remain intact with no strikethrough. The patient has been fairly unresponsive in the last 24 hours and does not respond on questioning today. She is unable to participate with exam. - Urinary Catheter Management Goss Cath placed during this visit: yes Urethral indwelling: Yes Reason for continuing: End of life care Insertion date: 03/14/18 Insertion time: 09:10 Progress Note: A&P (1) Diabetic foot infection Status: Acute Current Visit: Yes (2) Gangrene Status: Acute Current Visit: Yes (3) Renal insufficiency Status: Acute Current Visit: Yes (4) Diabetes mellitus Status: Acute Current Visit: Yes (5) Hyponatremia Status: Acute Current Visit: Yes (6) Tobacco use Status: Acute Current Visit: Yes (7) Hypokalemia Status: Acute Current Visit: Yes (8) Hypomagnesemia Status: Acute Current Visit: Yes (9) S/P BKA (below knee amputation) bilateral Status: Acute Current Visit: Yes (10) Sinus tachycardia Status: Acute Current Visit: Yes Assessment and Plan for All Diagnoses:: 62-year-old female postoperative day 4 status post bilateral BKA for 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 She did have some pneumonia preoperatively and unfortunately this has progressed postoperatively. She has been fairly resistant to many interventions including physical therapy, respiratory therapy and mobilization out of bed. Her pulmonary status has declined significantly and she has elected to enter hospice care. She is a DNR/DNI and would not like any invasive treatments started. Given this new development the legs take secondary importance and I will not be aggressive with wound care (i.e. surgical treatment, wound vac therapy or other potentially painful interventions). Dressings should continue to be changed as needed. Will continue to follow peripherally.
[2018-03-15 17:40] VITALS: BP 153/69
--- NOTE | 2018-03-15 20:18 | Death Note ---
Pronouncement Note - Date and Time of Date of : 03/15/18 Time of : 20:00 - PCOD Preliminary cause of : Pneumonia - Additional Data Confirmation of : no pulse, no respirations, no heart sounds, pupils fixed and dilated Family: not available Attending/PCP notified?: Yes Attending physician: Ousmane Angulo MD Was code activated?: No Autopsy requested?: No cellophane wrapping examiner notified?: No Organ bank notified?: Yes Advance directives: Yes
--- NOTE | 2018-03-15 20:20 | Death Note ---
Discharge Sum: Prov - Provider Primary care physician: Ousmane Angulo MD Admitting clinician: Ousmane Angulo Attending physician on admission: Ousmane Angulo Consults: 03/07/18 08:37 Consult to On-Call Orthopedic Surgeon [CONS] Routine Comment: Consult on-call surgeon?: Yes Reason For Consult: gangrene foot Podiatry Consult [Consult to Podiatry] [CONS] Routine Consulting Provider: Karla Modi Comment: gangrene foot 03/07/18 18:35 Consult to Cardiology [CONS] Routine Consulting Provider: Vernon Tobias Comment: BLE gangrene, plan amputation Sunday, please eval for possible angio to help determine level of amp 03/11/18 07:00 Consult to Anesthesiology [CONS] Routine Consulting Provider: [facility] Comment: consult to assess pt pneumonia status stability for bilateral bka's Pronouncing clinician: Ousmane Angulo Discharge Sum: Diag - PCOD Cause of : Pneumonia Discharge Sum: Summary - Date and Time Date of admission: 03/06/18 20:00 Date of : 03/15/18 Time of : 20:00 - Additional Data Confirmation of as documented by pronouncing clinician: no pulse, no respirations, no heart sounds, pupils fixed and dilated Family: not available Attending/PCP notified?: Yes Attending physician: Ousmane Angulo MD Was code activated?: No Autopsy requested?: No property insurance claims examiner notified?: No Organ bank notified?: Yes Advance directives: Yes Hospice patient?: No
--- NOTE | 2018-03-15 20:21 | Discharge Summary ---
General - General Admission date:: 03/06/18 Discharge date: 03/15/18 HPI HPI: pt with ongoing decline at [facility] wirh diabetes and has infected feet rt > lt - pt with pain and dec po intake and was seen at [facility] and because of infection and failed op abx with dec po intake and act lev with low bp and abn labs was sent to ed to be eval - she was admitted for ivf and abx Hospital Course Hospital Course: pt with extensive infection in lower ext and was seen by ortho- patient is a 62-year-old female with a chief complaint of bilateral foot pain. She says that the pain has been present for "a long time," but cannot specify whether this is on the order of weeks or months. She was admitted on 03/05/2018 for suspected infected wounds on her feet, hyponatremia, leukocytosis. She has been on oral antibiotics since October 2017, consisting of clindamycin and Levaquin. She does not report any history of trauma to her feet and is not sure how the infection started. This is all that I am able to obtain from the patient; on questioning, the patient is resistant to answering. She says that she would like to refuse treatment and that she is "ready to ." She is a diabetic smoker and is on daily insulin. She is a [facility] resident and says that she is currently not able to walk at all, and cannot remember the last time she was able to stand. She was admitted through the ED, where ertapenem and vancomycin were started. A CT of the right foot 03/06/2018 was not suspicious for osteomyelitis. Wound cultures were taken and are growing gram-negative rods and gram-positive cocci. Blood cultures are pending. She has had decreased urine output and decreased p.o. intake but vitals have been stable and she has been afebrile.- she agreed to have surg - dendum to Addendum: I spoke with both the OR and Dr. Fatima, and we think it would be in the patient's best interest to wait on surgery until Sunday. This will allow us to obtain evaluation by cardiology for possible angio to evaluate the patient's vascular status. This would determine the level of amputation necessary: BKA vs. AKA. It is highly unlikely that the patient will clear this infection and heal her wounds nonoperatively or even with I&D and IV antibiotics. Sunday will allow more time for careful preoperative planning, medical optimization and IV antibiotics. Will consult cardiology to evaluate the patient tomorrow and based on their assessment plan for surgery Sunday03/11/18. Addendum entered and electronically signed by Camille Fischer MD 03/07/18 17:50: I returned to see the patient this evening, and she was much more cooperative and very pleasant. She allowed me to remove the bandages on her feet and examine them. There was bilateral tissue necrosis over multiple digits including bilateral great toes. This was dark, black necrotic tissue. Extending proximally, there were multiple areas of full-thickness ulceration and purulence covering the lateral left heel, the posterior left ankle, the arch of bilateral feet and bilateral tibia both anteriorly and posteriorly. This represents nearly circumferential infection and full-thickness necrosis of multiple areas. I feel that simply surgically debriding these areas would result in full-thickness tissue loss that would require subsequent coverage with either a skin graft or free flap procedure, which the patient is very unlikely to heal. I do not think her toes are salvageable and I do not think a transmetatarsal amputation will heal. I think her best bet is likely bilateral BKA. I discussed this with the patient who is very agreeable and would like to do anything to be out of as much pain as she is in now. She says that it has been years since she has walked and she mostly sits in a wheelchair so ambulation is not a concern for her. She is agreeable to amputation if necessary. My plan will be to take her to the operating room tomorrow for I&D under anesthesia and then, based upon intraoperative findings, proceed with amputation if necessary. I do not think ABIs are possible with her infection, and I do not believe MRI or CTA will add any additional information that will alter our treatment. I discussed the risks, benefits and alternatives to the procedure including the risk of bleeding necessitating postoperative transfusion, persistent infection requiring revision amputation, the possibility of developing flexion contractures of her knees and breakdown of her amputation stumps requiring revision amputation in the future, and the possibility of phantom limb pain. I also discussed the alternative, which is non-operative treatment; I discussed that she has had persistent infection despite months of p.o. antibiotics and 48 hours of IV antibiotics and I do not think her infection will be cleared without surgery. I discussed the possibility of sepsis and ; the patient would like to do whatever is necessary to avoid this. I will make her n.p.o. after midnight and add her on to the surgery schedule for tomorrow. The plan was discussed with Dr. Angulo. she slowly declined with pneumonia and dec bp and did not want intubation and was seen by hospice but too ill to decide and wished only comfort measures and 03/15/18 at 2000 Objective Vital signs: Temp Pulse Resp BP Pulse Ox 98.0 F 124 H 22 153/69 H 83 L 03/15/18 16:00 03/15/18 17:01 03/15/18 16:00 03/15/18 16:00 03/15/18 17:01 severe distress - *Routine HEENT Exam Head: Present: normocephalic Eye: Present: implant. Absent: EOMI, PERRL, nystagmus - *Routine Neck Exam Absent: JVD - *Routine Respiratory Exam Comments: apnea - *Routine Cardiovascular Exam Comments: no heart sds - *Routine Abdominal Exam Present: soft - *Routine Extremities Exam Comments: s/p amputation - *Routine Neurological Exam no signs of life Results Labs on day of discharge: Labs from last 24 hours 03/15/18 03/15/18 03/15/18 16:24 11:14 05:41 WBC RBC Hgb Hct MCV MCH MCHC RDW Plt Count MPV Neut % (Auto) Lymph % (Auto) Lane % (Auto) Eos % (Auto) Baso % (Auto) Neut # (Auto) Lymph # (Auto) Lane # (Auto) Eos # (Auto) Baso # (Auto) Total Counted Neutrophils % (Manual) Band Neutrophils % Lymphocytes % (Manual) Monocytes % (Manual) Platelet Estimate Macrocytosis Stomatocytes Sodium Potassium Chloride Carbon Dioxide Anion Gap BUN Creatinine Estimated Creat Clear Estimated GFR Est GFR ( Amer) Glucose POC Glucose 141 H 120 H 150 H Calcium 03/15/18 03/15/18 03/14/18 05:35 05:35 20:00 WBC 20.7 H* RBC 2.90 L Hgb 9.2 L Hct 30.2 L MCV 104.1 H MCH 31.9 H MCHC 30.6 L RDW 15.9 Plt Count 341 MPV 7.4 Neut % (Auto) 91.3 H Lymph % (Auto) 4.[address] % (Auto) 4.0 Eos % (Auto) 0.2 Baso % (Auto) 0.1 Neut # (Auto) 18.9 H Lymph # (Auto) 0.9 Lane # (Auto) 0.8 Eos # (Auto) 0.0 Baso # (Auto) 0.0 Total Counted 100 Neutrophils % (Manual) 88 H Band Neutrophils % 3.0 Lymphocytes % (Manual) 5 L Monocytes % (Manual) 4 Platelet Estimate Normal Macrocytosis 1+ Stomatocytes 1+ Sodium 138 Potassium 5.3 H D Chloride 94 L Carbon Dioxide 42 H* Anion Gap 7.3 BUN 19 H D Creatinine 0.95 D Estimated Creat Clear 64 Estimated GFR 59 Est GFR ( Amer) 72 D Glucose 135 H D POC Glucose 225 H Calcium 6.8 L Preliminary micro results at discharge 03/14/18 09:10 Urine Culture - Preliminary Urine,Clean Catch NO GROWTH AFTER 24 HOURS DS: Diagnosis - Discharge Diagnosis (1) Diabetic foot infection Status: Acute (2) Gangrene Status: Acute (3) Renal insufficiency Status: Acute (4) Diabetes mellitus Status: Acute (5) Hyponatremia Status: Acute (6) Tobacco use Status: Acute (7) Hypokalemia Status: Acute (8) Hypomagnesemia Status: Acute (9) S/P BKA (below knee amputation) bilateral Status: Acute (10) Sinus tachycardia Status: Acute Discharge Plan - Patient Discharge Instructions ACTIVITY: Continue current activity DIET: continue same diet Patient Instructions: How to Care for a Surgical Wound, Diabetic Foot Ulcer, DI for [id number] Amputation, DI for Surgical Site Infection, DI for Multiple Drug-resistant Organism (MDRO) Infection - Follow up Plan Disposition: Home Medications: Home Medications Medication Instructions Recorded Confirmed Type acetaminophen 500 mg tablet 500 mg PO Q6HP PRN tab 06/22/17 03/06/18 History atorvastatin 20 mg tablet 20 mg PO HS tab 06/22/17 03/06/18 History divalproex 125 mg tablet,delayed 125 mg PO HS tab 06/22/17 03/06/18 History release furosemide 20 mg tablet 20 mg PO DAILY tab 06/22/17 03/06/18 History gabapentin 600 mg tablet 600 mg PO QID tab 06/22/17 03/06/18 History hydrocodone 7.5 mg-acetaminophen 1 tab PO TID tab 06/22/17 03/06/18 History 325 mg tablet metformin 1,000 mg tablet 1,000 mg PO BID 06/22/17 03/06/18 History multivitamin with minerals tablet 1 tab-cap PO DAILY tab 06/22/17 03/06/18 History omeprazole 40 mg capsule,delayed 20 mg PO HS cap 06/22/17 03/06/18 History release tizanidine 4 mg capsule 4 mg PO TIDP PRN 06/22/17 03/06/18 History Fluconazole [Diflucan 100mg tablet] 100 mg PO DAILY 03/06/18 03/06/18 History Insulin Detemir [Levemir 100 14 unit SQ HS 03/06/18 03/06/18 History units/mL 10mL vial] Insulin Regular, Human [Humulin R 0 unit SQ BIDP PRN 03/06/18 03/06/18 History Insulin 100 Units/mL 10mL Vial] LORazepam [Ativan 0.5mg tablet] 0.25 mg PO BID 03/06/18 03/06/18 History Loperamide HCl [Imodium 2 mg 2 mg PO QIDP PRN 03/06/18 03/06/18 History capsule] Loratadine [Claritin 10mg Tablet] 10 mg PO DAILY 03/06/18 03/06/18 History Mag Carb/Aluminum Hydrox/Algin 30 ml PO QIDP PRN 03/06/18 03/06/18 History [Gaviscon Liquid] Phenol [Chloraseptic] 1 spray MM BIDP PRN 03/06/18 03/06/18 History Sertraline HCl [Zoloft 100mg 100 mg PO DAILY 03/06/18 03/06/18 History tablet] guaiFENesin [Robafen] 10 ml PO Q4HP PRN 03/06/18 03/06/18 History Prescriptions/Medication Reconciliation: Discontinued divalproex 125 mg tablet,delayed release 125 mg PO HS tab furosemide 20 mg tablet 20 mg PO DAILY tab gabapentin 600 mg tablet 600 mg PO QID tab hydrocodone 7.5 mg-acetaminophen 325 mg tablet 1 tab PO TID tab metformin 1,000 mg tablet 1,000 mg PO BID multivitamin with minerals tablet 1 tab-cap PO DAILY tab omeprazole 40 mg capsule,delayed release 20 mg PO HS cap acetaminophen 500 mg tablet 500 mg PO Q6HP PRN tab PRN Reason: pain atorvastatin 20 mg tablet 20 mg PO HS tab tizanidine 4 mg capsule 4 mg PO TIDP PRN PRN Reason: Muscle Spasm Loratadine [Claritin 10mg Tablet] 10 mg PO DAILY Sertraline HCl [Zoloft 100mg tablet] 100 mg PO DAILY Insulin Detemir [Levemir 100 units/mL 10mL vial] 14 unit SQ HS Insulin Regular, Human [Humulin R Insulin 100 Units/mL 10mL Vial] 0 unit SQ BIDP PRN PRN Reason: DIABETES guaiFENesin [Robafen] 10 ml PO Q4HP PRN PRN Reason: Cough Phenol [Chloraseptic] 1 spray MM BIDP PRN PRN Reason: Sore Throat Loperamide HCl [Imodium 2 mg capsule] 2 mg PO QIDP PRN PRN Reason: Diarrhea LORazepam [Ativan 0.5mg tablet] 0.25 mg PO BID Fluconazole [Diflucan 100mg tablet] 100 mg PO DAILY Mag Carb/Aluminum Hydrox/Algin [Gaviscon Liquid] 30 ml PO QIDP PRN PRN Reason: Indigestion
== END 2018-03-15 20:00 | disposition expired ==
LOC: ER 16:18 → 2ND 16:18
PROVIDERS: ADMIT Emergency Medicine; ATTEND Emergency Medicine